=== PATIENT | female | born 1935 | race Caucasian/White ===

== ENCOUNTER 2020-03-14 15:04 | Emergency (ER) | payer MEDICARE, OTHER, SELFPAY ==
--- NOTE | 2020-03-14 15:12 | ED.DENTAL ---
HPI - Dental/Oral General Chief complaint: Dental/Oral Stated complaint: tongue stuck in partial Time Seen by Provider: 03/14/20 15:07 Source: patient and RN notes reviewed Mode of arrival: ambulatory Limitations: no limitations History of Present Illness HPI Narrative: 84-year-old female presents with concern for her tongue being stuck on her partial denture. Reports symptom occurred 10 to 15 minutes prior to arrival while she was eating ice cream cone. Denies bleeding to the area, reports pain. MD Complaint: tooth injury (Tongue pain) Teeth map: 1. Tongue caught on partial denture Related Data Home Medications Medication Instructions Recorded Confirmed aspirin 81 mg tablet,delayed 81 mg PO DAILY 07/10/19 02/02/20 release spironolactone 25 mg tablet 50 mg PO DAILY tablet 07/10/19 02/02/20 Allergies Allergy/AdvReac Type Severity Reaction Status Date / Time Iodinated Contrast Media Allergy Severe Hives Verified 01/26/20 14:12 iodine Allergy Mild Hives Verified 01/26/20 14:12 Review of Systems Review of Systems: Narrative: CONSTITUTIONAL: Denies malaise, chills, sweats, or fever. ENT: Reports painful tongue, caught on her partial denture RESPIRATORY: Denies dyspnea. All systems reviewed & are unremarkable except as noted in HPI and below PMFSH Social History Social History Smoking status: Never smoker Second hand tobacco smoke exposure: No Alcohol intake: never Substance use: never Comments At time of signature, agree with nursing past medical, surgical, social and family history. There is no relevant family history pertinent to the presenting complaint Exam Narrative: Exam Narrative: GENERAL: Well-appearing, well-nourished, and in no acute distress. HEAD: Normocephalic EYES: PERRLA, conjunctivae clear ENT: Nares clear. Mucous membranes moist. Oropharynx without edema, erythema or lesions. Frenulum of tongue punctured, caught onto patient's left sided partial denture, no bleeding noted, small blood blister noted NECK: Supple. CHEST: No respiratory distress. Speaks in full sentences. HEART: Regular rate and rhythm. SKIN: Warm, dry, no rash. NEURO: Alert and oriented x3. PSYCH: Normal mood and affect Course Course Emergency Course: Patient is aware of diagnosis, understands and agrees to treatment plan. Anticipatory guidance given. Patient agrees to follow-up as directed and is aware of reasons to seek care at the emergency department. Portions of this record may have been created with voice recognition software Vital Signs Vital signs: Vital Signs Temperature 98.7 F 03/14/20 15:17 Pulse Rate 89 03/14/20 15:17 Respiratory Rate 16 03/14/20 15:17 Blood Pressure 106/83 03/14/20 15:17 Pulse Oximetry 99 03/14/20 15:17 Temperature 98.7 F 03/14/20 15:17 Pulse Rate 89 03/14/20 15:17 Respiratory Rate 16 03/14/20 15:17 Blood Pressure 106/83 03/14/20 15:17 Pulse Oximetry 99 03/14/20 15:17 Reviewed. Procedures Other Procedure Procedure 1: Other Procedure: 0.3 mL lidocaine without epi injected locally to the left-sided frenulum. Forceps used to unhook the tongue from the metal denture. No complications, no bleeding. MDM - Dental/Oral MDM Narrative Medical decision making narrative: Exam findings show no acute concerns or changes; patient is non-toxic appearing and is in no distress. Patient is appropriate for outpatient treatment and follow-up. Critical Care Time Critical Care Time Critical Care Time: No Discharge Plan Discharge Clinical Impression: Tongue injury Qualifiers: Encounter type: initial encounter Qualified Code(s): S09.93XA - Unspecified injury of face, initial encounter Patient Disposition: Home, Self-Care Condition: Stable Additional Instructions: Rinse your mouth with warm salt water 3-4 times a day. Call your dentist tomorrow for further evaluation of your
[2020-03-14 15:17] VITALS: BP 106/83; PULSE 89; RESP 16; TEMP 37.1; O2SAT 99
== END 2020-03-14 15:36 | disposition home or self-care (01) ==
PROVIDERS: Emergency Provider Nurse Practitioner; PCP Physician Assistant
DX: S09.8XXA Other specified injuries of head, initial encounter (principal); W23.1XXA Caught, crushed, jammed, or pinched between stationary objects, initial encounter; E11.9 Type 2 diabetes mellitus without complications; E03.9 Hypothyroidism, unspecified; E78.00 Pure hypercholesterolemia, unspecified; Z79.84 Long term (current) use of oral hypoglycemic drugs
CPT/HCPCS: 99212; G0463

== ENCOUNTER 2020-06-30 09:50 | Outpatient (CLI) | payer MEDICARE, OTHER, SELFPAY ==
[2020-06-30 10:45] LABS: Alanine Aminotransferase 25 U/L (4-35); Albumin Level 3.6 g/dL (3.5-5.1); Alkaline Phosphatase 73 U/L (38-126); Anion Gap 9 mmol/L (8-16); Aspartate Amino Transferase 27 U/L (14-36); Blood Urea Nitrogen 36 mg/dL (7-17); Calcium 8.5 mg/dL (8.4-10.2); Carbon Dioxide 30 mmol/L (22-30); Chloride 96 mmol/L (98-107); Estimated Glomerular Filt Rate > 60; Glucose 109 mg/dL (65-105); Potassium 3.2 mmol/L (3.4-5.0); Sodium 135 mmol/L (137-145)
[2020-06-30 10:55] LABS: Hemoglobin A1C 5.7 % (<5.7)
[2020-06-30 11:13] LABS: Thyroid Stimulating Hormone 0.023 uIU/mL (0.465-4.680)
[2020-06-30 11:48] LABS: Free T4 Free Thyroxine 1.74 ng/mL (0.78-2.19)
== END 2020-06-30 09:51 | disposition home or self-care (01) ==
PROVIDERS: PCP Physician Assistant; Referring Provider Internal Medicine Nephrology; Visit Provider Physician Assistant
DX: E11.9 Type 2 diabetes mellitus without complications (principal); E03.9 Hypothyroidism, unspecified
CPT/HCPCS: 36415; 80053; 83036; 84439; 84443

== ENCOUNTER 2020-07-06 14:20 | Outpatient (CLI) | payer MEDICARE, OTHER, SELFPAY ==
[2020-07-06 15:07] LABS: Add Urine Microscopic? YES; Appearance Urine Cloudy (Clear); Bacteria Urine Trace /hpf; Bilirubin Urine 1+ (Negative); Blood Urine 1+ (Negative); Color Urine Amber (Yellow); Glucose Urine UA Negative (Negative); Hyaline Casts Urine 20-29 /lpf; Ketones Urine Trace mg/dL (Negative); Leukocyte Esterase Ur 2+ LEU/UL (NEGATIVE); Mucus Urine Heavy /lpf; Nitrate Urine Negative (Negative); Protein Urine 2+ mg/dL (Negative); Squamous Epithelial Cell Urine Many /hpf (Few)
[2020-07-06 15:13] LABS: Specific Grav Ur 1.033 (1.001-1.035)
== END 2020-07-06 14:21 | disposition home or self-care (01) ==
LOC: ANHLAB 14:22
PROVIDERS: PCP Physician Assistant; Visit Provider Physician Assistant
DX: R30.0 Dysuria (principal); E78.6 Lipoprotein deficiency
CPT/HCPCS: 81001; 87086

== ENCOUNTER 2020-08-02 13:35 | Outpatient (CLI) | payer MEDICARE, OTHER, SELFPAY ==
[2020-08-02 14:54] LABS: Hematocrit 40.3 % (37.0-47.0); Hemoglobin 14.2 g/dL (12.0-15.0); Mean Corpuscular HGB Conc 35.2 g/dl (32-36); Mean Corpuscular Hemoglobin 32.9 pg (26-34); Mean Corpuscular Volume 93.5 fl (80-100); Platelet Count Result 119 k/mm3 (150-375); Red Blood Count 4.31 M/mm3 (4.2-5.4); Red Cell Distribution Width 12.9 % (11.5-14.5); White Blood Count 11.7 K/mm3 (4.5-10.0)
[2020-08-02 15:01] LABS: Add Urine Microscopic? YES; Appearance Urine Cloudy (Clear); Bacteria Urine 4+ /hpf; Bilirubin Urine Negative (Negative); Blood Urine 1+ (Negative); Color Urine Yellow (Yellow); Glucose Urine UA 1+ mg/dL (Negative); Ketones Urine Trace mg/dL (Negative); Leukocyte Esterase Ur Negative LEU/UL (NEGATIVE); Mucus Urine Heavy /lpf; Nitrate Urine Negative (Negative); Protein Urine 3+ mg/dL (Negative); Specific Grav Ur 1.028 (1.001-1.035); Squamous Epithelial Cell Urine Many /hpf (Few); WBC Urine 0-3 /hpf (0-3)
[2020-08-02 15:08] LABS: Albumin Level 3.2 g/dL (3.5-5.1); Anion Gap 4 mmol/L (8-16); Blood Urea Nitrogen 34 mg/dL (7-17); Calcium 7.9 mg/dL (8.4-10.2); Carbon Dioxide 31 mmol/L (22-30); Chloride 100 mmol/L (98-107); Estimated Glomerular Filt Rate > 60; Glucose 133 mg/dL (65-105); Magnesium 1.3 mg/dL (1.6-2.3); Phosphorus 2.5 mg/dL (2.5-4.5); Potassium 3.4 mmol/L (3.4-5.0); Sodium 135 mmol/L (137-145)
[2020-08-02 15:59] LABS: Creatinine Urine 137.6 mg/dL; Total Protein Urine Random 129 mg/dL
[2020-08-02 16:01] LABS: Potassium Urine Random 100.3 meq/L
== END 2020-08-02 13:36 | disposition home or self-care (01) ==
PROVIDERS: PCP Physician Assistant; Referring Provider Internal Medicine; Visit Provider Internal Medicine Nephrology
DX: R53.83 Other fatigue (principal); E87.6 Hypokalemia; N39.0 Urinary tract infection, site not specified
CPT/HCPCS: 36415; 80069; 81001; 81050; 82570; 83735; 84133; 84156; 85027; 87077; 87086; 87088; 87186

== ENCOUNTER 2021-02-10 15:45 | Outpatient (CLI) | payer MEDICARE, OTHER, SELFPAY ==
[2021-02-10 16:06] LABS: Hematocrit 41.2 % (37.0-47.0); Hemoglobin 13.5 g/dL (12.0-15.0); Mean Corpuscular HGB Conc 32.8 g/dl (32-36); Mean Corpuscular Hemoglobin 32.1 pg (26-34); Mean Corpuscular Volume 97.9 fl (80-100); Mean Platelet Volume 8.9 fl (7.4-10.4); Platelet Count Result 241 k/mm3 (150-375); Red Blood Count 4.21 M/mm3 (4.2-5.4); Red Cell Distribution Width 13.4 % (11.5-14.5); White Blood Count 7.9 K/mm3 (4.5-10.0)
[2021-02-10 16:36] LABS: Add Urine Microscopic? YES; Appearance Urine Cloudy (Clear); Bacteria Urine Trace /hpf; Bilirubin Urine Negative (Negative); Blood Urine 1+ (Negative); Color Urine Yellow (Yellow); Glucose Urine UA Negative (Negative); Ketones Urine Negative (Negative); Leukocyte Esterase Ur 3+ LEU/UL (NEGATIVE); Mucus Urine Rare /lpf; Nitrate Urine Negative (Negative); Protein Urine Negative (Negative); Specific Grav Ur 1.016 (1.001-1.035); Squamous Epithelial Cell Urine Few /hpf (Few); WBC Urine 51-75 /hpf (0-3)
[2021-02-10 16:41] LABS: Free T4 Free Thyroxine 1.17 ng/mL (0.78-2.19)
== END 2021-02-10 15:46 | disposition home or self-care (01) ==
LOC: ANHLAB 15:48
PROVIDERS: PCP Physician Assistant; Visit Provider Physician Assistant
DX: N39.0 Urinary tract infection, site not specified (principal); E03.9 Hypothyroidism, unspecified; D69.6 Thrombocytopenia, unspecified
CPT/HCPCS: 36415; 81001; 84439; 84443; 85027; 87077; 87086; 87088; 87186

== ENCOUNTER 2021-03-15 12:38 | Outpatient (CLI) | payer MEDICARE, OTHER, SELFPAY ==
[2021-03-15 14:10] LABS: Add Urine Microscopic? YES; Appearance Urine Clear (Clear); Bilirubin Urine Negative (Negative); Blood Urine 1+ (Negative); Color Urine Yellow (Yellow); Glucose Urine UA Negative (Negative); Ketones Urine Negative (Negative); Leukocyte Esterase Ur 1+ LEU/UL (Negative); Mucus Urine Rare /lpf; Nitrate Urine Negative (Negative); Protein Urine Negative (Negative); RBC Urine 0-2 /hpf (0-2); Specific Grav Ur 1.013 (1.001-1.035); Squamous Epithelial Cell Urine Many /hpf (Few); Urobilinogen Urine Negative mg/dL (<2.0)
== END 2021-03-15 12:39 | disposition home or self-care (01) ==
PROVIDERS: PCP Physician Assistant; Visit Provider Internal Medicine
DX: R30.0 Dysuria (principal)
CPT/HCPCS: 81001

== ENCOUNTER 2021-07-14 11:02 | Outpatient (CLI) | payer MEDICARE, OTHER, SELFPAY ==
[2021-07-14 11:49] LABS: Alanine Aminotransferase 21 U/L (4-35); Albumin Level 4.9 g/dL (3.5-5.1); Alkaline Phosphatase 62 U/L (38-126); Anion Gap 8 mmol/L (8-16); Aspartate Amino Transferase 32 U/L (14-36); Bilirubin,Total 0.9 mg/dL (0.2-1.3); Blood Urea Nitrogen 27 mg/dL (7-17); Calcium 10.2 mg/dL (8.4-10.2); Carbon Dioxide 27 mmol/L (22-30); Chloride 106 mmol/L (98-107); Cholesterol 201 mg/dL (0-200); Estimated Glomerular Filt Rate 59; Glucose 95 mg/dL (65-110); HDL Direct 73 mg/dL; Potassium 4.6 mmol/L (3.4-5.0); Sodium 141 mmol/L (137-145); Triglycerides 113 mg/dL (<150)
[2021-07-14 11:50] LABS: Hemoglobin A1C 5.7 % (<5.7)
[2021-07-14 12:00] LABS: LDL Cholesterol Direct 88 mg/dL
[2021-07-14 12:04] LABS: MALB Creatinine Ratio 23.3 mg/g (0-30)
[2021-07-14 12:53] LABS: Folic Acid > 20.0 ng/mL (2.76->20)
== END 2021-07-14 11:03 | disposition home or self-care (01) ==
LOC: ANHLAB 11:08
PROVIDERS: PCP Physician Assistant; Visit Provider Physician Assistant
DX: E11.9 Type 2 diabetes mellitus without complications (principal); R53.83 Other fatigue
CPT/HCPCS: 36415; 80053; 80061; 82043; 82607; 82746; 83036; 84443

== ENCOUNTER 2021-09-27 14:19 | Outpatient (CLI) | payer MEDICARE, OTHER, SELFPAY ==
[2021-09-27 16:05] LABS: Free T4 Free Thyroxine 1.14 ng/mL (0.78-2.19)
== END 2021-09-27 14:20 | disposition home or self-care (01) ==
PROVIDERS: PCP Physician Assistant; Referring Provider Internal Medicine Cardiovascular Disease
DX: E89.0 Postprocedural hypothyroidism (principal)
CPT/HCPCS: 36415; 84439; 84443

== ENCOUNTER 2021-10-13 14:05 | Outpatient (CLI) | payer MEDICARE, OTHER, SELFPAY ==
[2021-10-13 14:40] LABS: Anion Gap 10 mmol/L (8-16); Blood Urea Nitrogen 24 mg/dL (7-17); Calcium 9.7 mg/dL (8.4-10.2); Carbon Dioxide 25 mmol/L (22-30); Chloride 103 mmol/L (98-107); Estimated Glomerular Filt Rate 53; Glucose 88 mg/dL (65-110); Potassium 4.6 mmol/L (3.4-5.0); Sodium 138 mmol/L (137-145)
== END 2021-10-13 14:06 | disposition home or self-care (01) ==
LOC: ANHLAB 14:07
PROVIDERS: PCP Physician Assistant; Visit Provider Internal Medicine Cardiovascular Disease
DX: I50.32 Chronic diastolic (congestive) heart failure (principal); I42.0 Dilated cardiomyopathy
CPT/HCPCS: 36415; 80048

== ENCOUNTER 2021-11-14 13:58 | Outpatient (CLI) | payer MEDICARE, OTHER, SELFPAY ==
[2021-11-14 14:27] LABS: Appearance Urine Clear (Clear); Bilirubin Urine Negative (Negative); Blood Urine 1+ (Negative); Color Urine Yellow (Yellow); Glucose Urine UA Negative (Negative); Ketones Urine Negative (Negative); Leukocyte Esterase Ur Trace LEU/UL (NEGATIVE); Nitrate Urine Negative (Negative); Protein Urine Negative (Negative); Urobilinogen Urine 0.2 mg/dL (<2.0)
[2021-11-14 14:33] LABS: Bacteria Urine Trace /hpf; Mucus Urine Rare /lpf; Squamous Epithelial Cell Urine Occasional /hpf (Few); WBC Urine 0-3 /hpf (0-3)
[2021-11-14 14:39] LABS: Add Urine Microscopic? YES
[2021-11-14 15:11] LABS: Free T4 Free Thyroxine 1.17 ng/mL (0.78-2.19)
== END 2021-11-14 13:59 | disposition home or self-care (01) ==
PROVIDERS: PCP Physician Assistant; Visit Provider Physician Assistant
DX: E03.9 Hypothyroidism, unspecified (principal); R41.0 Disorientation, unspecified
CPT/HCPCS: 36415; 81001; 84439; 84443; 87086; 87088

== ENCOUNTER 2021-12-29 14:30 | Outpatient (CLI) | payer MEDICARE, OTHER, SELFPAY ==
[2021-12-29 15:17] LABS: Anion Gap 8 mmol/L (8-16); Blood Urea Nitrogen 23 mg/dL (7-17); Calcium 9.1 mg/dL (8.4-10.2); Carbon Dioxide 24 mmol/L (22-30); Chloride 103 mmol/L (98-107); Estimated Glomerular Filt Rate > 60; Glucose 91 mg/dL (65-110); Potassium 4.4 mmol/L (3.4-5.0); Sodium 135 mmol/L (137-145)
== END 2021-12-29 14:31 | disposition home or self-care (01) ==
LOC: ANHLAB 14:37
PROVIDERS: PCP Physician Assistant; Visit Provider Internal Medicine Cardiovascular Disease
DX: I50.32 Chronic diastolic (congestive) heart failure (principal)
CPT/HCPCS: 36415; 80048

== ENCOUNTER 2022-01-24 10:13 | Outpatient (CLI) | payer MEDICARE, OTHER, SELFPAY ==
[2022-01-24 10:45] LABS: Appearance Urine Slightly Cloudy (Clear); Bilirubin Urine 1+ (Negative); Blood Urine 1+ (Negative); Color Urine Yellow (Yellow); Glucose Urine UA Negative (Negative); Ketones Urine Trace mg/dL (Negative); Leukocyte Esterase Ur 1+ LEU/UL (Negative); Nitrate Urine Negative (Negative); Protein Urine 2+ mg/dL (Negative); Specific Grav Ur >= 1.030 (1.001-1.035); pH Urine 6.5 (5.0-9.0)
[2022-01-24 10:57] LABS: Bacteria Urine Trace /hpf; Mucus Urine Moderate /lpf; Squamous Epithelial Cell Urine Many /hpf (Few)
[2022-01-24 10:58] LABS: Add Urine Microscopic? YES
== END 2022-01-24 10:14 | disposition home or self-care (01) ==
PROVIDERS: PCP Physician Assistant; Visit Provider Physician Assistant
DX: R30.0 Dysuria (principal)
CPT/HCPCS: 81001; 87086

== ENCOUNTER 2022-02-03 09:46 | Outpatient (CLI) | payer MEDICARE, OTHER, SELFPAY ==
[2022-02-03 10:22] LABS: Basophils Percent Auto 0.1 % (0.2-1.2); Hematocrit 41.5 % (37.0-47.0); Hemoglobin 13.9 g/dL (12.0-15.0); Immature Granulocyte Percent A 0.7 % (0-0.5); Lymphocytes Absolute Auto 1.89 K/mm3 (0.9-3.2); Lymphocytes Percent Auto 13.5 % (18.3-44.2); Mean Corpuscular HGB Conc 33.5 g/dl (32-36); Mean Corpuscular Hemoglobin 31.5 pg (26-34); Mean Corpuscular Volume 94.1 fl (80-100); Mean Platelet Volume 8.8 fl (7.4-10.4); Monocytes Absolute Auto 0.7 K/mm3 (0.1-0.6); Monocytes Percent Auto 4.7 % (2.6-8.5); Neutrophils Absolute Auto 11.3 K/mm3 (1.3-6.7); Platelet Count Result 162 k/mm3 (150-375); Red Blood Count 4.41 M/mm3 (4.2-5.4); Red Cell Distribution Width 12.6 % (11.5-14.5)
[2022-02-03 10:24] LABS: Appearance Urine Slightly Cloudy (Clear); Bilirubin Urine 1+ (Negative); Color Urine Yellow (Yellow); Glucose Urine UA Negative (Negative); Ketones Urine Negative (Negative); Leukocyte Esterase Ur 1+ LEU/UL (NEGATIVE); Nitrate Urine Negative (Negative); Protein Urine 2+ mg/dL (Negative); Specific Grav Ur 1.025 (1.001-1.035)
[2022-02-03 10:47] LABS: Bacteria Urine Trace /hpf; Mucus Urine Rare /lpf; RBC Urine 21-50 /hpf (0-2); Squamous Epithelial Cell Urine Many /hpf (Few); WBC Urine 31-50 /hpf (0-3)
[2022-02-03 10:53] LABS: Alanine Aminotransferase 21 U/L (6-35); Albumin Level 3.1 g/dL (3.5-5.1); Alkaline Phosphatase 74 U/L (38-126); Anion Gap 6 mmol/L (8-16); Aspartate Amino Transferase 25 U/L (14-36); Bilirubin,Total 1.4 mg/dL (0.2-1.3); Blood Urea Nitrogen 38 mg/dL (7-17); Carbon Dioxide 35 mmol/L (22-30); Chloride 94 mmol/L (98-107); Estimated Glomerular Filt Rate > 60; Glucose 112 mg/dL (65-110); Potassium 2.5 mmol/L (3.4-5.0); Sodium 135 mmol/L (137-145)
[2022-02-03 11:02] LABS: Add Urine Microscopic? YES; Blood Urine Trace-Intact (Negative)
[2022-02-03 11:15] LABS: Thyroid Stimulating Hormone 0.033 uIU/mL (0.465-4.680)
[2022-02-03 11:42] LABS: Calcium 7.8 mg/dL (8.4-10.2)
[2022-02-03 11:51] LABS: Folic Acid 14.4 ng/mL (2.76->20)
== END 2022-02-03 09:47 | disposition home or self-care (01) ==
LOC: ANHLAB 09:49
PROVIDERS: PCP Physician Assistant; Visit Provider Physician Assistant
DX: R53.1 Weakness (principal)
CPT/HCPCS: 36415; 80053; 81001; 82607; 82746; 84443; 85025; 87077; 87086; 87088; 87186

== ENCOUNTER 2022-02-03 14:53 | Inpatient (IN) | payer MEDICARE, OTHER, SELFPAY ==
[2022-02-03] VITALS (13 sets, daily range): BP systolic 103–126; BP diastolic 51–70; PULSE 68–91; RESP 12–19; TEMP 36.5–36.7; O2SAT 95–98; BMI 26.2
--- NOTE | ~2022-02-03 | CT_ITS ---
EXAMINATION: CT abdomen pelvis wo con DATE: 02/03/2022 17:56 INDICATION: Generalized abdominal pain. TECHNIQUE: Computed tomography (CT) of the abdomen and pelvis was performed without intravenous contr ast. Automated exposure control and iterative reconstruction technique were employed. The dose-length product was 457.90 mGy-cm. COMPARISON: Chest radiograph dated 10/19/2016 FINDINGS: Stable appearance of extensive pleural and parenchymal scarring scattered throughout the bilateral mi d and lower lung zones. Tiny left pleural effusion. Cardiomegaly with prominent right atrial enlargem ent. Mitral valve repair. No pericardial or pleural effusion. Small sliding-type hiatal hernia. Liver , gallbladder, spleen and pancreas are normal. There is relatively symmetric thickening of the bilate ral adrenal glands without discrete nodules which could be seen with adrenal hyperplasia. 1 cm low-at tenuation exiting cyst at the lower pole of the right kidney. 5 mm relatively high attenuation lesion at the lower pole of the left kidney most likely a proteinaceous/hemorrhagic cyst but too small to d efinitively characterize. There is mild colonic diverticulosis with a sigmoid predominance. There is no adjacent inflammatory change to suggest diverticulitis. No bowel obstruction. The appendix is not visualized. No pericecal inflammatory change to suggest acute appendicitis. Decompressed bladder is unremarkable. Atrophic versus more likely surgically absent uterus. No free intraperitoneal gas or fl uid. No pathologically enlarged abdominal or pelvic lymphadenopathy. Mild thoracolumbar levoscoliosis with severe spondylosis. Chronic T12 and L1 burst fractures with mild retropulsion resulting in mild central canal stenosis at both levels. Small bilateral fat-containing inguinal hernias. IMPRESSION: 1. No acute intra-abdominal/pelvic process. 2. Cardiomegaly with prominent right atrial enlargement. 3. Stable appearance of extensive pleural-parenchymal scarring in the bilateral mid and lower lung zo rachelle. 4. Tiny left pleural effusion. 5. Small sliding-type hiatal hernia. 6. Mild diverticulosis. Reviewed, dictated and finalized at location A. IMPRESSION: 1. No acute intra-abdominal/pelvic process. 2. Cardiomegaly with prominent right atrial enlargement. 3. Stable appearance of extensive pleural-parenchymal scarring in the bilateral mid and lower lung zones. 4. Tiny left pleural effusion. 5. Small sliding-type hiatal hernia. 6. Mild diverticulosis.
--- NOTE | 2022-02-03 15:11 | ECG_ITS ---
Measurements Intervals [place] Rate: 89 P: ND: 0 QRS: 16 QRSD: 94 T: -9 QT: 377 QTc: 461 Interpretive Statements SINUS A RHYTHM NONSPECIFIC ST & T-WAVE ABNORMALITY NO PREVIOUS ECG AVAILABLE FOR COMPARISON Electronically Signed On 02-03-2022 16:37:25 CDT by Ray Woodruff M.D.
[2022-02-03 17:28] LABS: INR 1.1; Magnesium 1.8 mg/dL (1.6-2.3); Partial Thromboplastin Time 20.7 SECONDS (22.3-36.8); Prothrombin Time 13.8 Seconds (11.1-14.7)
--- NOTE | 2022-02-03 17:28 | ED.RECABL ---
HPI - Recheck/Abnormal Lab/Rx General Chief Complaint: Recheck/Abnormal Lab/Rx Stated Complaint: elevated wbc, low k+, from PCP Time Seen by Provider: 02/03/22 16:42 Source: RN notes reviewed History of Present Illness HPI narrative: Patient presents emergency room from home for weakness. Patient states she has been feeling generally weak for the past 4 days. States has had no other symptoms with the weakness she denies any fevers or chills chest pain shortness of breath abdominal pain nausea vomit diarrhea or any other symptoms. She gone to her PCP today was noted she had a urinary tract infection as well as a low potassium and was sent to the emergency department for further evaluation Related Data Home Medications Medication Instructions Recorded Confirmed aspirin 81 mg tablet,delayed 81 mg PO DAILY 07/10/19 02/03/22 release (Adult Low Dose Aspirin) Allergies Allergy/AdvReac Type Severity Reaction Status Date / Time Iodinated Contrast Media Allergy Severe Hives Verified 02/03/22 15:10 iodine Allergy Mild Hives Verified 02/03/22 15:10 Review of Systems Review of Systems: Gen.: Denies fevers or chills ENT: Denies congestion Respiratory: Denies shortness of breath or cough CV: Denies chest pain or palpitations GI: Denies abdominal pain nausea, emesis or diarrhea Musculoskeletal: Denies back pain or muscle pain Neuro: D reports weakness Skin: Denies rash Except as documented, all other systems reviewed and negative [facility] Past Medical History Medical History High blood cholesterol High blood pressure History of stroke History of thyroid cancer Surgical History Surgical History H/O mitral valve replacement H/O total hysterectomy with removal of both tubes and ovaries History of bladder surgery Bladder mesh surgery History of thyroidectomy Family History Family History Sibling Family history of coronary artery disease Family history of malignant neoplasm of thyroid Daughter Asthma Social History Social History Smoking status: Never smoker Second hand tobacco smoke exposure: No Alcohol intake: never Substance use: never Exam Narrative: APPEARANCE: No acute distress, nontoxic, resting in bed EYES: EOMI HEENT: Normocephalic, atraumatic, OMM RESPIRATORY: No respiratory distress Clear to auscultation bilaterally with no rhonchi wheezing or rales. CARDIOVASCULAR: Regular rate and rhythm without murmurs rubs or gallops. ABDOMINAL: Soft, nontender, nondistended, no rebound or guarding MUSCULOSKELETAl: Moves all extremities. No clubbing, cyanosis or edema. NEURO: Awake and alert. Following commands, speech normal, no focal deficits SKIN:: Warm, dry. No rashes lesions or abrasions PSYCHIATRIC: Normal affect/mood, Course Course Emergency Course: Reviewed patient's lab work from prior today showing elevated white blood cell count Discussed with CURTIS Baer for Dr. Pruett agrees with admission request 40 mill equivalents of potassium given both orally as well as IV Discussed with patient and family results of workup and diagnosis. Discussed need for admission. Patient and family understand and agree to current treatment plan Vital Signs Vital signs: Vital Signs Temperature 97.7 F 02/03/22 15:06 Pulse Rate 91 02/03/22 15:06 Respiratory Rate 14 02/03/22 15:06 Blood Pressure 108/51 L 02/03/22 15:06 Pulse Oximetry 97 02/03/22 15:06 Oxygen Delivery Room Air 02/03/22 15:06 Temperature 97.7 F 02/03/22 15:06 Pulse Rate 86 02/03/22 18:18 Respiratory Rate 19 02/03/22 18:18 Blood Pressure 121/70 02/03/22 18:18 Pulse Oximetry 98 02/03/22 18:18 Oxygen Delivery Room Air 02/03/22 15:06 MDM - Recheck/Abnormal Lab/Rx Lab Data Result diagram
[2022-02-03 17:32] LABS: Alanine Aminotransferase 26 U/L (6-35); Albumin Level 3.3 g/dL (3.5-5.1); Alkaline Phosphatase 81 U/L (38-126); Anion Gap 11 mmol/L (8-16); Aspartate Amino Transferase 30 U/L (14-36); Bilirubin,Total 1.1 mg/dL (0.2-1.3); Blood Urea Nitrogen 41 mg/dL (7-17); Calcium 8.1 mg/dL (8.4-10.2); Carbon Dioxide 33 mmol/L (22-30); Chloride 93 mmol/L (98-107); Estimated CRCL calculation 41 ml/min; Estimated Glomerular Filt Rate > 60; Glucose 163 mg/dL (65-110); Potassium 2.6 mmol/L (3.4-5.0); Sodium 137 mmol/L (137-145)
[2022-02-03 17:33] LABS: Lactic Acid Reflex 4.3 mmol/L (0.7-2.0)
[2022-02-03] MEDS: SODIUM CHLORIDE 0.9% IV 1,000 ML 999 ML IV CONT (17:41)
[2022-02-03 18:14] LABS: SARS-CoV-2 RNA PCR Negative
[2022-02-03] MEDS: POTASSIUM CHLORIDE 20 MEQ TABLET 40 MEQ PO (18:20)
[2022-02-03] MEDS: SODIUM CHLORIDE 0.9% IV 500 ML 999 ML IV CONT (19:14)
[2022-02-03] MEDS: POTASSIUM CHLORIDE INJ 40 MEQ in SODIUM CHLORIDE 0.9% IV 500 ML 130 MEQ IVPB (19:59)
[2022-02-03] MEDS: SODIUM CHLORIDE 0.9% IV 1,000 ML 100 ML IV CONT (20:05)
[2022-02-03 20:13] LABS: Reflex Lactic Acid Yes or No Add Lactic
[2022-02-03 21:04] LABS: Lactic Acid 3.7 mmol/L (0.7-2.0)
--- NOTE | 2022-02-03 21:51 | ADMGEN ---
This patient, Shannon Stahl, was admitted to 2 Medical Room 259-. Patient/family oriented to hospital policies and general routines including ID bracelet, bed and alarms, visiting hours, pain management, procedures, bathroom and other care routines, personal items, smoking policy, room service/diet, and visiting hours. Information on how to activate the Rapid Response Team has been discussed. Patient/Family are encouraged to report perceived risks to care and to ask questions if they do not understand what they are told or what they should do.
--- NOTE | 2022-02-03 23:18 | PM.IMHP ---
H&P: HPI History of Present Illness Date/Time: 02/03/22 23:18 Chief Complaint: Lab abnormalities Narrative: Greater than 30 minutes spent reviewing chart, evaluating, treating, counseling patient. Anticipate less than 48 hour admission, will admit under observation. 86-year-old female past medical history of TIA in early , history of thyroid cancer status post thyroidectomy, heart failure reduced ejection fraction (09/2021 TTE LVEF 45%, grade 1 DD), status post bioprosthetic mitral valve repair 07/2015 in [place], history of GI bleed with ulcer 08/2015, type 2 diabetes non-insulin. Presents from home with lab abnormalities. Patient reports she has not had any symptoms, however had lab work done with PCP who advised her to come to the hospital for further evaluation. Patient denies fever/chills, cough, sore throat, shortness of breath, chest pain, palpitations, nausea/vomiting, diarrhea/constipation, dysuria/hematuria. In ED, vitals stable. Labs remarkable for white count of 14, patient afebrile. Potassium 2.5. Glucose 163. Lactic acid initial 4.3. CT abdomen/pelvis done that was negative for acute intra-abdominal/pelvic process. UA showing 1+ leukocyte esterase, many wbc's, however many squamous cells present. Patient given a dose of Rocephin, total of 80 mEq potassium, 2 L normal saline. Review of Systems Review of Systems: Ten point ROS reviewed, negative unless otherwise specified per HPI [facility] Past Medical History Medical History High blood cholesterol High blood pressure History of stroke History of thyroid cancer Surgical History Surgical History H/O mitral valve replacement H/O total hysterectomy with removal of both tubes and ovaries History of bladder surgery Bladder mesh surgery History of thyroidectomy Family History Family History Sibling Family history of coronary artery disease Family history of malignant neoplasm of thyroid Daughter Asthma Social History Social History Smoking status: Never smoker Second hand tobacco smoke exposure: No Alcohol intake: never Substance use: never Spiritual care concerns: No Meds Home Medications and Allergies Home Medications Medication Instructions Recorded Confirmed Type aspirin 81 mg tablet,delayed 81 mg PO DAILY 07/10/19 02/03/22 History release (Adult Low Dose Aspirin) levothyroxine 50 mcg tablet 50 mcg PO DAILY #90 tabs 08/10/20 02/03/22 Rx blood sugar diagnostic (Contour See Rx Instructions .Route 08/23/20 02/03/22 Rx Next Test Strips) .COMPLEX #100 ea blood-glucose meter (Contour Next #1 ea 08/23/20 02/03/22 Rx EZ Meter) lancets 33 gauge (BD Ultra Fine #100 ea 08/23/20 02/03/22 Rx Lancets) metformin 500 mg tablet See Rx Instructions .Route 03/31/21 02/03/22 Rx .COMPLEX #90 tabs losartan 25 mg tablet 25 mg PO DAILY #90 tabs 08/29/21 02/03/22 Rx spironolactone 25 mg tablet 50 mg PO DAILY #180 tabs 09/14/21 02/03/22 Rx atorvastatin 10 mg tablet 10 mg PO DAILY #90 tabs 10/26/21 02/03/22 Rx Allergies Allergy/AdvReac Type Severity Reaction Status Date / Time Iodinated Contrast Media Allergy Severe Hives Verified 02/03/22 23:03 iodine Allergy Mild Hives Verified 02/03/22 23:03 Vital Signs Vital Signs - 24 hr 02/03/22 15:06 02/03/22 18:18 02/03/22 18:19 Temperature 97.7 F Pulse Rate 91 86 72 Respiratory Rate 14 19 15 Blood Pressure 108/51 L 121/70 Pulse Oximetry 97 98 98 Oxygen Delivery Room Air 02/03/22 18:30 02/03/22 18:31 02/03/22 18:45 Temperature Pulse Rate 72 85 80 Respiratory Rate 18 18 15 Blood Pressure 126/61 Pulse Oximetry Oxygen Delivery 02/03/22 19:16 02/03/22 19:49 02/03/22 20:03 Temperature Pulse Rate 82 80 87 Respiratory Rate 14 16 12 B
[2022-02-04] VITALS (10 sets, daily range): BP systolic 119–144; BP diastolic 57–96; PULSE 58–88; RESP 15–20; TEMP 36.4–36.9; O2SAT 92–98
[2022-02-04 01:22] LABS: Lactic Acid Reflex 4.5 mmol/L (0.7-2.0)
[2022-02-04 06:36] LABS: Basophils Percent Auto 0.1 % (0.2-1.2); Hematocrit 38.6 % (37.0-47.0); Hemoglobin 12.7 g/dL (12.0-15.0); Immature Granulocyte Absolute 0.11 K/mm3 (0.00-0.031); Immature Granulocyte Percent A 0.9 % (0-0.5); Lymphocytes Absolute Auto 1.36 K/mm3 (0.9-3.2); Lymphocytes Percent Auto 11.1 % (18.3-44.2); Mean Corpuscular HGB Conc 32.9 g/dl (32-36); Mean Corpuscular Hemoglobin 31.5 pg (26-34); Mean Corpuscular Volume 95.8 fl (80-100); Mean Platelet Volume 9.7 fl (7.4-10.4); Monocytes Absolute Auto 0.6 K/mm3 (0.1-0.6); Monocytes Percent Auto 5.1 % (2.6-8.5); Neutrophils Absolute Auto 10.2 K/mm3 (1.3-6.7); Neutrophils Percent Auto 82.8 % (45.5-73.1); Platelet Count Result 149 k/mm3 (150-375); Red Blood Count 4.03 M/mm3 (4.2-5.4); Red Cell Distribution Width 12.6 % (11.5-14.5); White Blood Count 12.3 K/mm3 (4.5-10.0)
[2022-02-04] MEDS: LEVOTHYROXINE SODIUM 50 MCG TABLET PO (06:55)
[2022-02-04 06:59] LABS: Hemoglobin A1C 5.8 % (<5.7); Lactic Acid Reflex 3.2 mmol/L (0.7-2.0)
[2022-02-04 07:10] LABS: Alanine Aminotransferase 19 U/L (6-35); Albumin Level 2.7 g/dL (3.5-5.1); Alkaline Phosphatase 89 U/L (38-126); Anion Gap 6 mmol/L (8-16); Aspartate Amino Transferase 22 U/L (14-36); Bilirubin,Total 0.8 mg/dL (0.2-1.3); Blood Urea Nitrogen 37 mg/dL (7-17); Calcium 7.2 mg/dL (8.4-10.2); Carbon Dioxide 32 mmol/L (22-30); Chloride 104 mmol/L (98-107); Estimated CRCL calculation 49 ml/min; Estimated Glomerular Filt Rate > 60; Glucose 182 mg/dL (65-110); Potassium 2.9 mmol/L (3.4-5.0); Sodium 142 mmol/L (137-145)
[2022-02-04 07:21] LABS: Thyroid Stimulating Hormone 0.024 uIU/mL (0.465-4.680)
[2022-02-04 07:52] LABS: Glucose Point of Care 154 mg/dl (65-105)
[2022-02-04 09:22] LABS: Reflex Lactic Acid Yes or No Add Lactic
[2022-02-04] MEDS: ASPIRIN 81 MG ENTERIC TABLET PO (09:51)
[2022-02-04] MEDS: LOSARTAN POTASSIUM 25 MG TABLET PO (09:51)
[2022-02-04] MEDS: ATORVASTATIN 10 MG TABLET PO (09:51)
[2022-02-04] MEDS: ENOXAPARIN 40 MG/0.4 ML SYRINGE SUB-Q (09:51)
[2022-02-04] MEDS: SPIRONOLACTONE 25 MG TABLET 50 MG PO (09:52)
[2022-02-04 11:05] LABS: Lactic Acid 3.1 mmol/L (0.7-2.0)
[2022-02-04] MEDS: POTASSIUM CHLORIDE 20 MEQ TABLET 40 MEQ PO ×3 (11:05→17:32)
--- NOTE | 2022-02-04 11:33 | PM.IMPN ---
Progress Note: A&P Assessment and Plan (1) Acute hypokalemia: Code(s): E87.6 - Hypokalemia Status: Acute Assessment and Plan: Patient currently being given a total of 80 mEq potassium. Will recheck potassium at 1:00 a.m.. Given spironolactone use will be cautious with further replacement 02/04/2022 interval history: 86-year-old female with history of hypokalemia and was placed on spironolactone however patient continued to have hypokalemia being supplemented and will monitor, complains of being tired and fatigued, denies any chest pain shortness of breath palpitation, patient lactic acid level is elevated there is no source of infection, lactic acid is trending down, patient on metformin being hold, will gently hydrate the patient and monitor. (2) Lactic acid acidosis: Code(s): E87.2 - Acidosis Status: Acute Assessment and Plan: Unclear etiology at this time. Infectious workup ongoing as below, however patient does not exhibit any symptoms and is afebrile. Metformin may also be causing this lactic acidosis, however patient is not in renal failure. Continue to monitor (3) Leukocytosis: Code(s): D72.829 - Elevated white blood cell count, unspecified Status: Acute Assessment and Plan: Unclear etiology at this time. UA unclean catch, will recheck. Hold off on further antibiotics at this time. Blood cultures also pending. (4) Heart failure with reduced ejection fraction: Code(s): I50.20 - Unspecified systolic (congestive) heart failure Status: Acute Assessment and Plan: Patient given a total of 2 L normal saline, will hold off on further fluids given patient may be slightly volume overloaded. Continue spironolactone and losartan. Continue aspirin/statin (5) Hypothyroidism: Qualifiers: Hypothyroidism type: unspecified Qualified Code(s): E03.9 - Hypothyroidism, unspecified Code(s): E03.9 - Hypothyroidism, unspecified Status: Acute Assessment and Plan: Check TSH. Continue Synthroid (6) Diabetes mellitus: Code(s): E11.9 - Type 2 diabetes mellitus without complications Status: Acute Assessment and Plan: Hold metformin. Low-dose sliding scale insulin. Check A1c Subjective Date/time seen: 02/04/22 11:33 Lab abnormalities HPI-Narrative: Greater than 30 minutes spent reviewing chart, evaluating, treating, counseling patient.? Anticipate less than 48 hour admission, will admit under observation. 86-year-old female past medical history of TIA in early , history of thyroid cancer status post thyroidectomy, heart failure reduced ejection fraction (09/2021 TTE LVEF 45%, grade 1 DD), status post bioprosthetic mitral valve repair 07/2015 in [place], history of GI bleed with ulcer 08/2015, type 2 diabetes non-insulin.? Presents from home with lab abnormalities.? Patient reports she has not had any symptoms, however had lab work done with PCP who advised her to come to the hospital for further evaluation.? Patient denies fever/chills, cough, sore throat, shortness of breath, chest pain, palpitations, nausea/vomiting, diarrhea/constipation, dysuria/hematuria. In ED, vitals stable.? Labs remarkable for white count of 14, patient afebrile.? Potassium 2.5.? Glucose 163.? Lactic acid initial 4.3.? CT abdomen/pelvis done that was negative for acute intra-abdominal/pelvic process.? UA showing 1+ leukocyte esterase, many wbc's, however many squamous cells present.? Patient given a dose of Rocephin, total of 80 mEq potassium, 2 L normal saline. 02/04/2022 interval history: 86-year-old female with history of hypokalemia and was placed on spironolactone however patient continued to have hypokalemia being supplemented and will monitor, complains of being tired and fatigued, denies any chest pain shortness of breath palpitation, patient lactic acid level is elevated there is no source of infection, lactic acid is trending down, patient
[2022-02-04 11:54] LABS: Glucose Point of Care 187 mg/dl (65-105)
[2022-02-04 13:18] LABS: Appearance Urine Clear (Clear); Bilirubin Urine 1+ (Negative); Blood Urine Trace-lysed (Negative); Color Urine Yellow (Yellow); Glucose Urine UA Trace mg/dL (Negative); Ketones Urine Negative (Negative); Leukocyte Esterase Ur Trace LEU/UL (Negative); Nitrate Urine Negative (Negative); Protein Urine 2+ mg/dL (Negative); Urobilinogen Urine >=8.0 mg/dL (<2.0)
[2022-02-04 13:30] LABS: Mucus Urine Rare /lpf; Squamous Epithelial Cell Urine Many /hpf (Few)
[2022-02-04 13:41] LABS: Add Urine Microscopic? YES
[2022-02-04 15:50] LABS: Anion Gap 6 mmol/L (8-16); Blood Urea Nitrogen 39 mg/dL (7-17); Calcium 7.6 mg/dL (8.4-10.2); Carbon Dioxide 29 mmol/L (22-30); Chloride 102 mmol/L (98-107); Estimated CRCL calculation 43 ml/min; Estimated Glomerular Filt Rate > 60; Glucose 214 mg/dL (65-110); Magnesium 1.7 mg/dL (1.6-2.3); Potassium 3.2 mmol/L (3.4-5.0); Sodium 137 mmol/L (137-145)
[2022-02-04] MEDS: MAGNESIUM OXIDE 400 MG TABLET PO (17:33)
[2022-02-04 17:39] LABS: Glucose Point of Care 201 mg/dl (65-105)
[2022-02-04] MEDS: INSULIN ASPART (*BKC) 100 UNITS/ML SUB-Q (18:31)
[2022-02-04 21:55] LABS: Glucose Point of Care 201 mg/dl (65-105)
[2022-02-05] VITALS (11 sets, daily range): BP systolic 111–146; BP diastolic 59–81; PULSE 61–90; RESP 12–20; TEMP 36.2–37.1; O2SAT 94–97
[2022-02-05] MEDS: LEVOTHYROXINE SODIUM 50 MCG TABLET PO (05:20)
[2022-02-05 06:30] LABS: Basophils Percent Auto 0.2 % (0.2-1.2); Hematocrit 39.7 % (37.0-47.0); Hemoglobin 12.8 g/dL (12.0-15.0); Immature Granulocyte Absolute 0.12 K/mm3 (0.00-0.031); Immature Granulocyte Percent A 0.9 % (0-0.5); Lymphocytes Absolute Auto 1.59 K/mm3 (0.9-3.2); Lymphocytes Percent Auto 12.4 % (18.3-44.2); Mean Corpuscular HGB Conc 32.2 g/dl (32-36); Mean Corpuscular Hemoglobin 31.4 pg (26-34); Mean Corpuscular Volume 97.5 fl (80-100); Mean Platelet Volume 9.4 fl (7.4-10.4); Monocytes Absolute Auto 0.6 K/mm3 (0.1-0.6); Monocytes Percent Auto 4.5 % (2.6-8.5); Neutrophils Absolute Auto 10.5 K/mm3 (1.3-6.7); Platelet Count Result 125 k/mm3 (150-375); Red Blood Count 4.07 M/mm3 (4.2-5.4); Red Cell Distribution Width 12.9 % (11.5-14.5); White Blood Count 12.8 K/mm3 (4.5-10.0)
[2022-02-05 06:53] LABS: Alanine Aminotransferase 20 U/L (6-35); Albumin Level 2.8 g/dL (3.5-5.1); Alkaline Phosphatase 78 U/L (38-126); Anion Gap 1 mmol/L (8-16); Aspartate Amino Transferase 21 U/L (14-36); Bilirubin,Total 0.9 mg/dL (0.2-1.3); Blood Urea Nitrogen 35 mg/dL (7-17); Calcium 7.2 mg/dL (8.4-10.2); Carbon Dioxide 33 mmol/L (22-30); Chloride 106 mmol/L (98-107); Estimated CRCL calculation 49 ml/min; Estimated Glomerular Filt Rate > 60; Glucose 128 mg/dL (65-110); Potassium 3.8 mmol/L (3.4-5.0); Sodium 140 mmol/L (137-145)
[2022-02-05 07:54] LABS: Glucose Point of Care 108 mg/dl (65-105)
[2022-02-05] MEDS: MAGNESIUM OXIDE 400 MG TABLET PO (09:13)
[2022-02-05] MEDS: ATORVASTATIN 10 MG TABLET PO (09:13)
[2022-02-05] MEDS: SPIRONOLACTONE 25 MG TABLET 50 MG PO (09:13)
[2022-02-05] MEDS: ASPIRIN 81 MG ENTERIC TABLET PO (09:13)
[2022-02-05] MEDS: LOSARTAN POTASSIUM 25 MG TABLET PO (09:13)
[2022-02-05] MEDS: ENOXAPARIN 40 MG/0.4 ML SYRINGE SUB-Q (09:14)
[2022-02-05 11:51] LABS: Glucose Point of Care 165 mg/dl (65-105)
--- NOTE | 2022-02-05 14:34 | PM.IMPN ---
Progress Note: A&P Assessment and Plan (1) Acute hypokalemia: Code(s): E87.6 - Hypokalemia Status: Acute Assessment and Plan: Patient currently being given a total of 80 mEq potassium. Will recheck potassium at 1:00 a.m.. Given spironolactone use will be cautious with further replacement 02/04/2022 interval history: 86-year-old female with history of hypokalemia and was placed on spironolactone however patient continued to have hypokalemia being supplemented and will monitor, complains of being tired and fatigued, denies any chest pain shortness of breath palpitation, patient lactic acid level is elevated there is no source of infection, lactic acid is trending down, patient on metformin being hold, will gently hydrate the patient and monitor. 02/05/2022 interval history: 86-year-old female with history of hypokalemia and was placed on spironolactone however patient continued to have hypokalemia being supplemented and will monitor, complains of being tired and fatigued, denies any chest pain shortness of breath palpitation, patient lactic acid level was elevated there is no source of infection, blood culture so far no growth and urine culture is pending, lactic acid is trending down, patient on metformin being hold, will gently hydrate the patient and monitor. if patient remains clinically stable, will discharge patient tomorrow, (2) Lactic acid acidosis: Code(s): E87.2 - Acidosis Status: Acute Assessment and Plan: Unclear etiology at this time. Infectious workup ongoing as below, however patient does not exhibit any symptoms and is afebrile. Metformin may also be causing this lactic acidosis, however patient is not in renal failure. Continue to monitor (3) Leukocytosis: Code(s): D72.829 - Elevated white blood cell count, unspecified Status: Acute Assessment and Plan: Unclear etiology at this time. UA unclean catch, will recheck. Hold off on further antibiotics at this time. Blood cultures also pending. (4) Heart failure with reduced ejection fraction: Code(s): I50.20 - Unspecified systolic (congestive) heart failure Status: Acute Assessment and Plan: Patient given a total of 2 L normal saline, will hold off on further fluids given patient may be slightly volume overloaded. Continue spironolactone and losartan. Continue aspirin/statin (5) Hypothyroidism: Qualifiers: Hypothyroidism type: unspecified Qualified Code(s): E03.9 - Hypothyroidism, unspecified Code(s): E03.9 - Hypothyroidism, unspecified Status: Acute Assessment and Plan: Check TSH. Continue Synthroid (6) Diabetes mellitus: Code(s): E11.9 - Type 2 diabetes mellitus without complications Status: Acute Assessment and Plan: Hold metformin. Low-dose sliding scale insulin. Check A1c Subjective Date/time seen: 02/05/22 14:34 02/05/2022 interval history: 86-year-old female with history of hypokalemia and was placed on spironolactone however patient continued to have hypokalemia being supplemented and will monitor, complains of being tired and fatigued, denies any chest pain shortness of breath palpitation, patient lactic acid level was elevated there is no source of infection, blood culture so far no growth and urine culture is pending, lactic acid is trending down, patient on metformin being hold, will gently hydrate the patient and monitor. if patient remains clinically stable, will discharge patient tomorrow, Exam Narrative: elderly frail Patient is comfortable, NAD HEENT: eyes are clear and none icteric LUNGS: normal respiratory effort ABD: not distended Lower extremities: no edema SKIN: nonjaundiced Neuro: grossly intact. Objective Data Vital Signs Vital Signs: Vital Signs - 24 hr 02/04/22 18:21 02/04/22 19:44 02/04/22 16:00 Temperature 97.5 F L 98.3 F Pulse Rate 84 80 71 Respiratory Rate 18 16 Blood Pressure 129/
[2022-02-05 17:28] LABS: Glucose Point of Care 175 mg/dl (65-105)
[2022-02-05 20:32] LABS: Glucose Point of Care 213 mg/dl (65-105)
[2022-02-06] VITALS (8 sets, daily range): BP systolic 111–151; BP diastolic 66–86; PULSE 65–92; RESP 16–20; TEMP 36.4–37.4; O2SAT 94–97
[2022-02-06 05:45] LABS: Basophils Percent Auto 0.2 % (0.2-1.2); Hematocrit 38.1 % (37.0-47.0); Hemoglobin 12.7 g/dL (12.0-15.0); Immature Granulocyte Percent A 1.6 % (0-0.5); Lymphocytes Absolute Auto 1.73 K/mm3 (0.9-3.2); Lymphocytes Percent Auto 14.3 % (18.3-44.2); Mean Corpuscular HGB Conc 33.3 g/dl (32-36); Mean Corpuscular Hemoglobin 31.5 pg (26-34); Mean Corpuscular Volume 94.5 fl (80-100); Mean Platelet Volume 9.3 fl (7.4-10.4); Monocytes Absolute Auto 0.5 K/mm3 (0.1-0.6); Monocytes Percent Auto 4.5 % (2.6-8.5); Neutrophils Absolute Auto 9.6 K/mm3 (1.3-6.7); Neutrophils Percent Auto 79.4 % (45.5-73.1); Platelet Count Result 117 k/mm3 (150-375); Red Blood Count 4.03 M/mm3 (4.2-5.4); Red Cell Distribution Width 12.7 % (11.5-14.5); White Blood Count 12.1 K/mm3 (4.5-10.0)
[2022-02-06] MEDS: LEVOTHYROXINE SODIUM 50 MCG TABLET PO (05:48)
[2022-02-06 07:45] LABS: Glucose Point of Care 110 mg/dl (65-105)
[2022-02-06] MEDS: ENOXAPARIN 40 MG/0.4 ML SYRINGE SUB-Q (08:11)
[2022-02-06] MEDS: SPIRONOLACTONE 25 MG TABLET 50 MG PO (08:12)
[2022-02-06] MEDS: MAGNESIUM OXIDE 400 MG TABLET PO (08:12)
[2022-02-06] MEDS: ATORVASTATIN 10 MG TABLET PO (08:12)
[2022-02-06] MEDS: ASPIRIN 81 MG ENTERIC TABLET PO (08:12)
[2022-02-06] MEDS: LOSARTAN POTASSIUM 25 MG TABLET PO (08:12)
[2022-02-06 09:18] LABS: Alanine Aminotransferase 24 U/L (6-35); Albumin Level 2.7 g/dL (3.5-5.1); Alkaline Phosphatase 77 U/L (38-126); Anion Gap 3 mmol/L (8-16); Aspartate Amino Transferase 23 U/L (14-36); Bilirubin,Total 0.7 mg/dL (0.2-1.3); Blood Urea Nitrogen 28 mg/dL (7-17); Calcium 7.4 mg/dL (8.4-10.2); Carbon Dioxide 31 mmol/L (22-30); Chloride 100 mmol/L (98-107); Estimated CRCL calculation 49 ml/min; Estimated Glomerular Filt Rate > 60; Glucose 128 mg/dL (65-110); Sodium 134 mmol/L (137-145)
[2022-02-06] MEDS: POTASSIUM CHLORIDE 20 MEQ TABLET 40 MEQ PO (10:47)
[2022-02-06 12:21] LABS: Glucose Point of Care 123 mg/dl (65-105)
--- NOTE | 2022-02-06 13:45 | PM.DS ---
DS: Admitting Diagnosis Discharge Date 02/06/2022 Admitting Diagnosis hypokalemia DS: Discharge Diagnosis Discharge Diagnosis (1) Acute hypokalemia: Code(s): E87.6 - Hypokalemia Status: Acute Assessment and Plan: Patient currently being given a total of 80 mEq potassium. Will recheck potassium at 1:00 a.m.. Given spironolactone use will be cautious with further replacement 02/04/2022 interval history: 86-year-old female with history of hypokalemia and was placed on spironolactone however patient continued to have hypokalemia being supplemented and will monitor, complains of being tired and fatigued, denies any chest pain shortness of breath palpitation, patient lactic acid level is elevated there is no source of infection, lactic acid is trending down, patient on metformin being hold, will gently hydrate the patient and monitor. 02/05/2022 interval history: 86-year-old female with history of hypokalemia and was placed on spironolactone however patient continued to have hypokalemia being supplemented and will monitor, complains of being tired and fatigued, denies any chest pain shortness of breath palpitation, patient lactic acid level was elevated there is no source of infection, blood culture so far no growth and urine culture is pending, lactic acid is trending down, patient on metformin being hold, will gently hydrate the patient and monitor. if patient remains clinically stable, will discharge patient tomorrow, (2) Lactic acid acidosis: Code(s): E87.2 - Acidosis Status: Acute Assessment and Plan: Unclear etiology at this time. Infectious workup ongoing as below, however patient does not exhibit any symptoms and is afebrile. Metformin may also be causing this lactic acidosis, however patient is not in renal failure. Continue to monitor (3) Leukocytosis: Code(s): D72.829 - Elevated white blood cell count, unspecified Status: Acute Assessment and Plan: Unclear etiology at this time. UA unclean catch, will recheck. Hold off on further antibiotics at this time. Blood cultures also pending. (4) Heart failure with reduced ejection fraction: Code(s): I50.20 - Unspecified systolic (congestive) heart failure Status: Acute Assessment and Plan: Patient given a total of 2 L normal saline, will hold off on further fluids given patient may be slightly volume overloaded. Continue spironolactone and losartan. Continue aspirin/statin (5) Hypothyroidism: Qualifiers: Hypothyroidism type: unspecified Qualified Code(s): E03.9 - Hypothyroidism, unspecified Code(s): E03.9 - Hypothyroidism, unspecified Status: Acute Assessment and Plan: Check TSH. Continue Synthroid (6) Diabetes mellitus: Code(s): E11.9 - Type 2 diabetes mellitus without complications Status: Acute Assessment and Plan: Hold metformin. Low-dose sliding scale insulin. Check A1c DS: Summary Hospital Course Reason for hospitalization: Greater than 30 minutes spent reviewing chart, evaluating, treating, counseling patient.? Anticipate less than 48 hour admission, will admit under observation. 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 Presents from home with lab abnormalities.? Patient reports she has not had any symptoms, however had lab work done with PCP who advised her to come to the hospital for further evaluation.? Patient denies fever/chills, cough, sore throat, shortness of breath, chest pain, palpitations, nausea/vomiting, diarrhea/constipation, dysuria/hematuria. In ED, vitals stable.? Labs remarkable for white count of 14, patient afebrile.? Potassium 2.5.? Glucose 163
== END 2022-02-06 15:15 | disposition home or self-care (01) | DRG 640 ==
LOC: ANHED 18:43 → ANH2MED 20:44
PROVIDERS: Internal Medicine; Admitting Provider Family Medicine; Emergency Provider Emergency Medicine; PCP Physician Assistant; Visit Provider Family Medicine
DX: E87.6 Hypokalemia (principal); I50.23 Acute on chronic systolic (congestive) heart failure; Z20.822 Contact with and (suspected) exposure to COVID-19; E87.2 Acidosis; D72.829 Elevated white blood cell count, unspecified; E03.9 Hypothyroidism, unspecified; E11.9 Type 2 diabetes mellitus without complications; Z85.850 Personal history of malignant neoplasm of thyroid; Z86.73 Personal history of transient ischemic attack (TIA), and cerebral infarction without residual deficits; Z79.84 Long term (current) use of oral hypoglycemic drugs; Z95.2 Presence of prosthetic heart valve; Z90.710 Acquired absence of both cervix and uterus; Z79.82 Long term (current) use of aspirin
CPT/HCPCS: 36415; 74176; 80048; 80053; 81001; 82607; 82746; 82948; 83036; 83605; 83735; 84443; 85025; 85610; 85730; 87040; 87086; 87186; 93005; 96365; 96372; 96375; 97110; 97116; 97161; 97165; 97530; 99285; A9270; C9803; G0378; J0696; J1650; J1815; J3480; J7030; J7040; U0003; U0005

== ENCOUNTER 2022-02-09 08:11 | Outpatient (CLI) | payer MEDICARE, OTHER, SELFPAY ==
[2022-02-09 08:53] LABS: Anion Gap 6 mmol/L (8-16); Blood Urea Nitrogen 34 mg/dL (7-17); Calcium 7.6 mg/dL (8.4-10.2); Carbon Dioxide 31 mmol/L (22-30); Chloride 96 mmol/L (98-107); Estimated Glomerular Filt Rate > 60; Glucose 139 mg/dL (65-110); Magnesium 1.8 mg/dL (1.6-2.3); Potassium 2.7 mmol/L (3.4-5.0); Sodium 133 mmol/L (137-145)
--- NOTE | 2022-02-09 10:33 | PC.NURSE ---
Faxed outpatient labs to PCP- Gasper Williamson. Lab called to our office this AM.
== END 2022-02-09 08:12 | disposition home or self-care (01) ==
LOC: ANHLAB 08:14
PROVIDERS: PCP Physician Assistant; Visit Provider Family Medicine
DX: E87.6 Hypokalemia (principal)
CPT/HCPCS: 36415; 80048; 83735

== ENCOUNTER 2022-02-13 14:16 | Outpatient (CLI) | payer MEDICARE, OTHER, SELFPAY ==
[2022-02-13 14:48] LABS: Anion Gap 10 mmol/L (8-16); Blood Urea Nitrogen 28 mg/dL (7-17); Calcium 7.7 mg/dL (8.4-10.2); Carbon Dioxide 30 mmol/L (22-30); Chloride 97 mmol/L (98-107); Estimated Glomerular Filt Rate > 60; Glucose 156 mg/dL (65-110); Sodium 137 mmol/L (137-145)
== END 2022-02-13 14:17 | disposition home or self-care (01) ==
LOC: ANHLAB 14:19
PROVIDERS: PCP Physician Assistant; Visit Provider Internal Medicine
DX: E87.6 Hypokalemia (principal)
CPT/HCPCS: 36415; 80048

== ENCOUNTER 2022-02-17 10:32 | Outpatient (CLI) | payer MEDICARE, OTHER, SELFPAY ==
[2022-02-17 12:56] LABS: Appearance Urine Slightly Cloudy (Clear); Bilirubin Urine 1+ (Negative); Blood Urine 1+ (Negative); Color Urine Yellow (Yellow); Glucose Urine UA Negative (Negative); Ketones Urine Trace mg/dL (Negative); Leukocyte Esterase Ur 1+ LEU/UL (Negative); Nitrate Urine Negative (Negative); Protein Urine 3+ mg/dL (Negative)
[2022-02-17 13:02] LABS: Mucus Urine Few /lpf; Squamous Epithelial Cell Urine Many /hpf (Few)
[2022-02-17 13:07] LABS: Add Urine Microscopic? YES
== END 2022-02-17 10:33 | disposition home or self-care (01) ==
LOC: ANHLAB 10:33
PROVIDERS: PCP Physician Assistant; Visit Provider Internal Medicine
DX: R30.0 Dysuria (principal)
CPT/HCPCS: 81001

== ENCOUNTER 2022-02-20 08:03 | Outpatient (CLI) | payer MEDICARE, OTHER, SELFPAY ==
[2022-02-20 09:01] LABS: Basophils Percent Auto 0.3 % (0.2-1.2); Eosinophils Percent Auto 0.1 % (0-4.4); Immature Granulocyte Absolute 0.21 K/mm3 (0.00-0.031); Immature Granulocyte Percent A 2.2 % (0-0.5); Lymphocytes Absolute Auto 1.76 K/mm3 (0.9-3.2); Mean Corpuscular HGB Conc 34.1 g/dl (32-36); Mean Corpuscular Hemoglobin 32.2 pg (26-34); Mean Corpuscular Volume 94.3 fl (80-100); Mean Platelet Volume 9.3 fl (7.4-10.4); Monocytes Absolute Auto 0.6 K/mm3 (0.1-0.6); Monocytes Percent Auto 5.9 % (2.6-8.5); Neutrophils Absolute Auto 7.2 K/mm3 (1.3-6.7); Neutrophils Percent Auto 73.5 % (45.5-73.1); Platelet Count Result 131 k/mm3 (150-375); Red Blood Count 4.35 M/mm3 (4.2-5.4); Red Cell Distribution Width 13.6 % (11.5-14.5); White Blood Count 9.8 K/mm3 (4.5-10.0)
[2022-02-20 09:28] LABS: Anion Gap 6 mmol/L (8-16); Blood Urea Nitrogen 35 mg/dL (7-17); Calcium 7.9 mg/dL (8.4-10.2); Carbon Dioxide 35 mmol/L (22-30); Chloride 96 mmol/L (98-107); Estimated Glomerular Filt Rate > 60; Glucose 158 mg/dL (65-110); Potassium 2.7 mmol/L (3.4-5.0); Sodium 137 mmol/L (137-145)
[2022-02-20 09:43] LABS: Free T4 Free Thyroxine 1.45 ng/mL (0.78-2.19)
[2022-02-20 12:41] LABS: Folic Acid 13.7 ng/mL (2.76->20)
== END 2022-02-20 08:04 | disposition home or self-care (01) ==
LOC: ANHLAB 08:06
PROVIDERS: PCP Physician Assistant; Visit Provider Internal Medicine
DX: D72.829 Elevated white blood cell count, unspecified (principal); E03.9 Hypothyroidism, unspecified; R53.1 Weakness; R53.83 Other fatigue; E87.6 Hypokalemia
CPT/HCPCS: 36415; 80048; 82607; 82746; 84439; 84443; 85025

== ENCOUNTER 2022-02-27 14:02 | Outpatient (CLI) | payer MEDICARE, OTHER, SELFPAY ==
[2022-02-27 14:41] LABS: Anion Gap 12 mmol/L (8-16); Blood Urea Nitrogen 36 mg/dL (7-17); Calcium 8.3 mg/dL (8.4-10.2); Carbon Dioxide 25 mmol/L (22-30); Chloride 100 mmol/L (98-107); Estimated Glomerular Filt Rate > 60; Glucose 177 mg/dL (65-110); Potassium 4.1 mmol/L (3.4-5.0); Sodium 137 mmol/L (137-145)
[2022-03-01 15:50] LABS: Thyroid Stimulating Hormone 0.035 uIU/mL (0.465-4.680)
[2022-03-01 18:54] LABS: Free T4 Free Thyroxine 0.83 ng/dL (0.76-1.46)
== END 2022-02-27 14:03 | disposition home or self-care (01) ==
PROVIDERS: PCP Physician Assistant; Visit Provider Physician Assistant
DX: E87.6 Hypokalemia (principal); E89.0 Postprocedural hypothyroidism
CPT/HCPCS: 36415; 80048; 84439; 84443

== ENCOUNTER 2022-03-07 14:55 | Outpatient (CLI) | payer MEDICARE, OTHER, SELFPAY ==
[2022-03-07 15:55] LABS: Appearance Urine Clear (Clear); Bilirubin Urine 1+ (Negative); Blood Urine Trace-lysed (Negative); Color Urine Yellow (Yellow); Glucose Urine UA Trace mg/dL (Negative); Ketones Urine Trace mg/dL (Negative); Leukocyte Esterase Ur Negative LEU/UL (NEGATIVE); Nitrate Urine Negative (Negative); Protein Urine 2+ mg/dL (Negative); Specific Grav Ur 1.025 (1.001-1.035); Urobilinogen Urine >=8.0 mg/dL (<2.0)
[2022-03-07 16:10] LABS: Add Urine Microscopic? YES
[2022-03-07 16:12] LABS: Squamous Epithelial Cell Urine Moderate /hpf (Few); WBC Urine 0-3 /hpf (0-3)
[2022-03-07 16:13] LABS: Bacteria Urine 1+ /hpf
[2022-03-07 17:12] LABS: Anion Gap 16 mmol/L (8-16); Blood Urea Nitrogen 36 mg/dL (7-17); Calcium 7.4 mg/dL (8.4-10.2); Carbon Dioxide 20 mmol/L (22-30); Chloride 101 mmol/L (98-107); Estimated Glomerular Filt Rate > 60; Glucose 199 mg/dL (65-110); Potassium 4.3 mmol/L (3.4-5.0); Sodium 137 mmol/L (137-145)
[2022-03-10 17:17] LABS: NIL 0.17 IU/mL; Quantiferon TB Plus, 1T NEGATIVE (NEGATIVE); TB2-NIL <0.00 IU/mL
== END 2022-03-07 14:56 | disposition home or self-care (01) ==
PROVIDERS: PCP Physician Assistant; Visit Provider Physician Assistant
DX: R41.0 Disorientation, unspecified (principal)
CPT/HCPCS: 36415; 80048; 81001; 86480; 87086; 87088

== ENCOUNTER 2022-03-20 13:54 | Inpatient (IN) | payer MEDICARE, OTHER, SELFPAY ==
[2022-03-20] VITALS (19 sets, daily range): BP systolic 110–132; BP diastolic 58–91; PULSE 80–114; RESP 16–23; TEMP 36.3–36.6; O2SAT 94–99; BMI 25.7
--- NOTE | ~2022-03-20 | CT_ITS ---
EXAMINATION: CT abdomen pelvis wo con DATE: 03/20/2022 16:14 INDICATION: Abdominal pain. Shortness of breath. TECHNIQUE: Computed tomography (CT) of the abdomen and pelvis was performed without intravenous contr ast. (Patient contrast medium allergy). Automated exposure control and iterative reconstruction techn ique were employed. Exam dose: 558.64 mGy-cm total exam DLP. COMPARISON: 02/03/2022 CT abdomen pelvis FINDINGS: There are small pleural effusions. There is patchy infiltrate and/or atelectasis in the low er lung zones. Cardiomegaly, right atrial enlargement,. Prominent mitral annulus calcification. No pericardial effus ion. Ascending aorta measures up to 3.9 cm diameter. There is calcification but normal caliber of the abdo jeannie aorta. There is prominent calcification at the origins of the renal arteries. Liver, gallbladder, bile ducts, spleen, pancreas, pancreatic duct, and adrenal glands and kidneys are unremarkable except for probable small cyst of each kidney. No urinary tract calculus or hydroureter onephrosis. The urinary bladder is unremarkable. Status post hysterectomy. No intraperitoneal or retroperitoneal or pelvic mass lesion or adenopathy or ascites is detected. Small sliding hiatal hernia. Mild colonic diverticulosis; no CT evidence of diverticulitis. No bowel obstruction, bowel wall thickening, pneumatosis or intraperitoneal free air. Small fat-containing umbilical hernia. Mild fat-containing inguinal hernias. Severe bilateral hip osteoarthritis. Osteitis pubis. Likely chronic burst fracture deformities of T12 and L1. Prominent degenerative change at the apophys eal joints. Moderately severe degenerative disc disease at L1-2 and L3-4. Severe degenerative disc disease at L5- S1. IMPRESSION: Small bilateral pleural effusions patchy infiltrate and/or atelectasis in the lower lung zones Cardiomegaly Small sliding hiatal hernia Colonic diverticulosis Chronic burst fractures of T12 and L1 Extensive degenerative changes of the spine and hips Reviewed, dictated and finalized at [facility]. Reviewed, dictated and finalized at location B. IMPRESSION: Small bilateral pleural effusions patchy infiltrate and/or atelect asis in the lower lung zones Cardiomegaly Small sliding hiatal hernia Colonic diverticulosis Chronic burst fractures of T12 and L1 Extensive degenerative changes of the spine and hips
--- NOTE | ~2022-03-20 | XR_ITS ---
XR chest 2V 03/20/2022 14:25 Indication: Dyspnea Procedure: 2 view chest Comparison: Comparison to multiple prior studies sequentially, with oldest reviewed study dated 04/01. Findings: Cardiomegaly. Bibasilar airspace disease. Persistent pulmonary nodule right mid thorax. The re is atherosclerosis of the aorta. No acute osseous abnormality. Advanced osteoarthritis of the shou lders. There is a prosthetic heart valve. Impression: 1: Bibasilar airspace disease, suspicious for pneumonia. 2: Stable nodular density right mid thorax without significant change from 04/12/2018. Consider follo w-up CT chest in 3 months or pet/CT scan. Reviewed, dictated and finalized at location A. Impression: 1: Bibasilar airspace disease, suspicious for pneumonia. 2: Stable nodular density right mid thorax without significant change from 04/01. Consider follow-up CT chest in 3 months or pet/CT scan.
--- NOTE | ~2022-03-20 | NM_ITS ---
EXAMINATION: NM pulmonary perfusion DATE: 03/21/2022 13:15 INDICATION: Shortness of breath. TECHNIQUE: 5.07 mCi Tc-99m MAA was administered intravenously for perfusion images. Scintigraphic im ages of the chest were obtained. COMPARISON: Chest 2 views 03/20/2022, CT abdomen and pelvis 03/20/2022 FINDINGS: Perfusion images show matched large defects in left lower lobe and matched small defects in left lowe r lobe. There is a moderate-sized defect in left upper lobe. IMPRESSION: 1. Nondiagnostic (intermediate probability for pulmonary embolism). Reviewed, dictated and finalized at location A.
--- NOTE | ~2022-03-20 | US_ITS ---
US venous doppler [facility] DATE: 03/26/2022 14:59 INDICATION: The venous thrombosis of left peroneal veins TECHNIQUE: Real-time and color flow imaging and Doppler analysis of the veins of both lower extremiti es COMPARISON: None FINDINGS: With the exception of the left peroneal veins, there is spontaneous and phasic flow and nor mal augmentation and color flow signal and normal compression of the veins of the lower extremities. There is persistent thrombus and lack of flow or compression of the left peroneal veins. IMPRESSION: Persistent left peroneal vein thrombosis, as noted on 03/21/2022 Reviewed, dictated and finalized at [facility]. Reviewed, dictated and finalized at location A.
--- NOTE | ~2022-03-20 | US_ITS ---
EXAMINATION: US venous doppler [facility] DATE: 03/21/2022 13:40 INDICATION: Lower limb edema. TECHNIQUE: Grayscale ultrasound images without and with compression and Doppler ultrasound images of the bilateral lower extremity veins were obtained. COMPARISON: None. FINDINGS: The visualized portions of right common femoral vein, profunda (deep) femoral vein, femoral vein, pop liteal vein, peroneal veins, posterior tibial veins, and greater saphenous vein outflow are patent. The visualized portions of left common femoral vein, profunda femoral vein, femoral vein, popliteal v ein, posterior tibial veins, and greater saphenous vein outflow are patent. There is thrombus in the left peroneal veins. IMPRESSION: 1. Deep vein thrombosis involving the left peroneal veins. I called this result to Dr. Pruett. Reviewed, dictated and finalized at location A. IMPRESSION: 1. Deep vein thrombosis involving the left peroneal veins. I called this resul t to Dr. Pruett.
--- NOTE | ~2022-03-20 | CT_ITS ---
EXAMINATION: CTA chest PE protocol DATE: 03/28/2022 10:54 INDICATION: Shortness of breath TECHNIQUE: Computed tomography angiography (CTA) of the chest was performed with 100 mL Omnipaque-350 intravenous contrast timed to evaluate the pulmonary arteries. Coronal maximum intensity projection 3D-reconstructions were created by the technologist. The dose-length product (DLP) was 171.04 mGy-cm. Automated exposure control and iterative reconstruction technique were employed. COMPARISON: 10/27/2016 FINDINGS: The pulmonary arteries are well-opacified. No pulmonary embolism is identified. There are s mall pleural effusions. Cardiomegaly is noted. There is mild dependent atelectasis. There is a 12 mm groundglass nodule in the right upper lobe, likely infectious or inflammatory. There is no pneumothor ax. There are no pathologically enlarged thoracic lymph nodes. Changes of mitral valve replacement ar e noted. There is severe thoracic spondylosis. IMPRESSION: 1. No pulmonary embolus. 2. Small pleural effusions. 3. Cardiomegaly. Reviewed, dictated and finalized at location A.
--- NOTE | ~2022-03-20 | XR_ITS ---
XR abdomen/kub 1V 03/25/2022 06:03 Indication: Abdominal bruising. Procedure: KUB Comparison: 03/28/2004 Findings: Bowel gas pattern nonobstructive. Moderate colonic fecal loading. There are bibasilar infil trates partially seen. Severe thoracolumbar spondylosis. No abnormal calcifications. Moderate-severe bilateral osteoarthritis of the hips. Impression: 1: Nonobstructive bowel gas pattern with moderate colonic fecal loading. 2: Bibasilar airspace disease which may represent pneumonia or edema. Reviewed, dictated and finalized at location A. Impression: 1: Nonobstructive bowel gas pattern with moderate colonic fecal loading. 2: Bibasilar airspace disease which may represent pneumonia or edema.
--- NOTE | ~2022-03-20 | NM_ITS ---
EXAMINATION: NM benjamín stress w perfusion DATE: 03/22/2022 13:06 CDT INDICATION: Elevated troponin. CHF. TECHNIQUE: Rest images were obtained following intravenous administration of 9.6 mCi Tc99m tetrofosmi n (Myoview). The patient was infused intravenously with Lexiscan (regadenoson). Then, 28.7 mCi Tc99m tetrofosmin (Myoview) was administered intravenously, and stress images were obtained. Data was recon structed into short axis and horizontal and vertical long axis SPECT images. Gated SPECT images were also obtained. COMPARISON: None. FINDINGS: There is no definite reversible or fixed perfusion abnormality to suggest ischemia or infar ction. There is no segmental wall motion abnormality. Left ventricular ejection fraction measures 3 9%. IMPRESSION: 1. No definite ischemia or infarct. 2. Global hypokinesis with diminished left ventricular ejection fraction measuring 39%. Reviewed, dictated and finalized at location A. IMPRESSION: 1. No definite ischemia or infarct. 2. Global hypokinesis with diminished left ventricular ejection fraction measur ing 39%.
--- NOTE | ~2022-03-20 | CT_ITS ---
EXAMINATION: CT abdomen pelvis wo con DATE: 03/25/2022 20:17 INDICATION: Anemia. Abdominal wall bruising. TECHNIQUE: Computed tomography (CT) of the abdomen and pelvis was performed without intravenous contr ast. Automated exposure control and iterative reconstruction technique were employed. The dose-length product was 385.95 mGy-cm. COMPARISON: CT abdomen and pelvis 03/20/2022 FINDINGS: The visualized portions of the lung bases demonstrate mild atelectasis and mild chronic kristine g disease. There are small pleural effusions. Cardiomegaly is noted. There are changes of mitral valv e replacement. No pericardial effusion. The liver, gallbladder, spleen, pancreas, adrenal glands, and kidneys are normal. There is no urolithiasis. The bladder is decompressed by a Meza catheter. There are bilateral inguinal hernias containing fat. Stool distends the rectum. There is diverticulosis of the colon without evidence of diverticulitis. There are no dilated loops of bowel. The appendix is n ormal. There are no pathologically enlarged lymph nodes. There is no free intraperitoneal fluid. Ther e is subcutaneous fat stranding in anterior abdominal wall predominantly on the left. There is severe osteoarthritis of the hips. There are chronic burst fractures of T12 on L1. There is severe lower josiah mbar spondylosis. IMPRESSION: 1. Subcutaneous fat stranding in anterior abdominal wall predominantly on the left, consistent with h ematoma. 2. Small pleural effusions with interval improvement. Reviewed, dictated and finalized at location E. IMPRESSION: 1. Subcutaneous fat stranding in anterior abdominal wall predominantly on the l eft, consistent with hematoma. 2. Small pleural effusions with interval improvement.
--- NOTE | 2022-03-20 13:57 | ECG_ITS ---
Measurements Intervals [place] Rate: 115 P: 55 IL: 155 QRS: 3 QRSD: 86 T: 24 QT: 329 QTc: 456 Interpretive Statements SINUS TACHYCARDIA FREQUENT ATRIAL PREMATURE COMPLEXES BORDERLINE T WAVE ABNORMALITY- ANT/INF LEADS ABNORMAL ECG COMPARED TO ECG 02/03/2022 15:27:45 SINUS TACHYCARDIA NOW PRESENT FREQUENT ATRIAL PREMATURE COMPLEXES NOW PRESENT Electronically Signed On 03-20-2022 14:05:30 CDT by Marcos Pineda D.O.
--- NOTE | 2022-03-20 14:09 | ED.GENADULT ---
HPI - General Adult General Chief complaint: Shortness of Breath/Dyspnea Stated complaint: dyspnea Time Seen by Provider: 03/20/22 14:08 Source: RN notes reviewed History of Present Illness HPI narrative: Patient presents emergency department from home via EMS for shortness of breath. Patient was visit on by home health nurse today the patient's been noted to have been increasing weakness over the past several days as well as shortness of breath. She states that she has not had a cough she denies any fevers or chills chest pain abdominal pain nausea or vomiting. Per the daughter the patient had had a mildly low blood pressure at home but is unsure of what that actual reading was patient states she has had some mild swelling in her legs Related Data Home Medications Medication Instructions Recorded Confirmed aspirin 81 mg tablet,delayed 81 mg PO DAILY 07/10/19 02/25/22 release (Adult Low Dose Aspirin) Allergies Allergy/AdvReac Type Severity Reaction Status Date / Time Iodinated Contrast Media Allergy Severe Hives Verified 02/24/22 11:18 iodine Allergy Mild Hives Verified 02/24/22 11:18 Review of Systems Review of Systems: Gen.: Denies fevers or chills ENT: Denies congestion Respiratory: See HPI CV: Denies chest pain or palpitations GI: Denies abdominal pain nausea, emesis or diarrhea Musculoskeletal: Denies back pain or muscle pain Neuro: Reports weakness Skin: Denies rash Except as documented, all other systems reviewed and negative [facility] Past Medical History Medical History High blood cholesterol High blood pressure History of stroke History of thyroid cancer Surgical History Surgical History H/O mitral valve replacement H/O total hysterectomy with removal of both tubes and ovaries History of bladder surgery Bladder mesh surgery History of thyroidectomy Family History Family History Sibling Family history of coronary artery disease Family history of malignant neoplasm of thyroid Daughter Asthma Social History Social History Smoking status: Never smoker Second hand tobacco smoke exposure: No Alcohol intake: never Substance use: never Spiritual care concerns: No Exam Narrative: APPEARANCE: No acute distress, nontoxic, resting in bed EYES: EOMI HEENT: Normocephalic, atraumatic, OMM RESPIRATORY: No respiratory distress coarse breath sounds of bilateral lung bases no wheezing. CARDIOVASCULAR: Regular rate and rhythm without murmurs rubs or gallops. ABDOMINAL: Soft, nontender, nondistended, no rebound or guarding Rectal: No hemorrhoids or fissures small amount of soft brown stool that is Hemoccult negative MUSCULOSKELETAl: Moves all extremities. No clubbing, cyanosis 2+ edema of the bilateral lower extremities NEURO: Awake and alert. Following commands, speech normal, no focal deficits SKIN:: Warm, dry. No rashes lesions or abrasions PSYCHIATRIC: Normal affect/mood, Course Course Emergency Course: Patient states she follows with Dr. Asencio I called discussed with Dr. Armendariz she agrees with consult agrees with IV Lasix at this time and will follow as inpatient Discussed with CURTIS Bear for Dr Abdi agrees with admission Discussed with patient and family results of workup and diagnosis. Discussed need for admission. Patient and family understand and agree to current treatment plan Vital Signs Vital signs: Vital Signs Temperature 97.3 F L 03/20/22 13:57 Pulse Rate 114 H 03/20/22 13:57 Respiratory Rate 20 03/20/22 13:57 Blood Pressure 126/91 H 03/20/22 13:57 Pulse Oximetry 98 03/20/22 13:57 Oxygen Delivery Room Air 03/20/22 13:57 Temperature 97.3 F L 03/20/22 13:57 Pulse Rate 105 H 03/20/22 16:36 Respiratory Rate 16 03/20/22 1
[2022-03-20 15:38] LABS: Hematocrit 32.3 % (37.0-47.0); Hemoglobin 10.7 g/dL (12.0-15.0); Mean Corpuscular HGB Conc 33.1 g/dl (32-36); Mean Corpuscular Hemoglobin 34.3 pg (26-34); Mean Corpuscular Volume 103.5 fl (80-100); Mean Platelet Volume 9.6 fl (7.4-10.4); Platelet Count Result 113 k/mm3 (150-375); Red Blood Count 3.12 M/mm3 (4.2-5.4); Red Cell Distribution Width 20.7 % (11.5-14.5); White Blood Count 9.2 K/mm3 (4.5-10.0)
[2022-03-20 15:53] LABS: Alanine Aminotransferase 214 U/L (6-35); Albumin Level 3.2 g/dL (3.5-5.1); Alkaline Phosphatase 154 U/L (38-126); Anion Gap 6 mmol/L (8-16); Aspartate Amino Transferase 93 U/L (14-36); Bilirubin,Total 1.1 mg/dL (0.2-1.3); Blood Urea Nitrogen 39 mg/dL (7-17); Calcium 8.1 mg/dL (8.4-10.2); Carbon Dioxide 22 mmol/L (22-30); Chloride 111 mmol/L (98-107); Estimated CRCL calculation 43 ml/min; Estimated Glomerular Filt Rate > 60; Glucose 155 mg/dL (65-110); Lactic Acid Reflex 2.5 mmol/L (0.7-2.0); Potassium 4.7 mmol/L (3.4-5.0); Sodium 139 mmol/L (137-145)
[2022-03-20 16:04] LABS: INR 1.2
[2022-03-20 16:06] LABS: Partial Thromboplastin Time 23.9 SECONDS (22.3-36.8)
[2022-03-20 16:10] LABS: Band Neutrophils Percent 5 % (0-6); Lymphocytes Absolute Manual 2.11 K/mm3 (1.1-4.5); Lymphocytes Percent Manual 23 % (18-44); Metamyelocytes Percent 1 %; Monocytes Absolute Manual 0.27 K/mm3 (0.1-0.90); Monocytes Percent Manual 3 % (3-9); Neutrophils Absolute Manual 6.71 K/mm3 (1.7-7.2); Neutrophils Percent Manual 68 % (46-73); Nucleated Red Blood Cells 5 %; Platelet Estimate Decreased (Adequate); Total Cells Counted 100
[2022-03-20 16:11] LABS: Macrocytosis 1+ (NORMAL); Poikilocytosis 1+ (NORMAL)
[2022-03-20 16:12] LABS: Burr Cells 2+ (NORMAL)
[2022-03-20] MEDS: SODIUM CHLORIDE 0.9% IV 1,000 ML 999 ML IV CONT (16:17)
[2022-03-20 16:18] LABS: NT Pro B Type Natriuretic Pept 17800 pg/mL (5-100)
[2022-03-20 17:17] LABS: SARS-CoV-2 RNA PCR Negative
[2022-03-20] MEDS: ASPIRIN 81 MG CHEWABLE TABLET 324 MG PO (17:21)
[2022-03-20] MEDS: FUROSEMIDE INJ 40 MG/4 ML VIAL IV PUSH (17:21)
[2022-03-20 18:36] LABS: Reflex Lactic Acid Yes or No Add Lactic
--- NOTE | 2022-03-20 19:18 | PC.NURSE ---
Assumed care of pt at this time. Pt alert and upright on stretcher per baseline, updated on POC.
[2022-03-20 19:19] LABS: Lactic Acid 3.1 mmol/L (0.7-2.0)
--- NOTE | 2022-03-20 20:00 | PM.IMHP ---
H&P: HPI History of Present Illness Date/Time: 03/20/22 20:00 Chief Complaint: Shortness of breath. Narrative: This is an 86-year-old female with history of heart failure with reduced ejection fraction (09/2021 TTE LVEF 45%, grade 1 diastolic dysfunction), valvular heart disease status post bioprosthetic mitral valve repair in July 2015, hypertension, dyslipidemia, thyroid cancer status post thyroidectomy with postsurgical hypothyroidism, [id number] type 2 diabetes mellitus and history of GI bleed secondary to ulcers in August 2015 who presented to the emergency department via EMS from home for evaluation of shortness of breath. She was admitted to the hospital in early January with lab abnormalities including hyperkalemia and lactic acidosis of unclear etiology. She was hydrated and discharged home with home health and physical therapy. She has had difficulties participating in physical therapy as she has been increasingly fatigued and gets exhausted with minimal activity. She has also had increasing dyspnea on lesser and lesser exertion in addition to increasing lower extremity edema. She has not had chest pain, pleuritic pain, or palpitations. She has not had a cough, sinus congestion, or sore throat. She denies syncope and near syncope. Review of Systems Review of Systems: Twelve systems were reviewed. No fever, chills, or sweats. No cold or flu symptoms. No sick contacts. Appetite has been fair. No vomiting. [facility] Past Medical History Medical History Dyslipidemia GI bleed (08/2015) Heart failure with reduced ejection fraction EF was 45% on echo in September 2021. Grade 1 diastolic dysfunction. Hypertension Peptic ulcer Thyroid cancer Surgical History Surgical History History of bladder suspension procedure History of mitral valve replacement with bioprosthetic valve History of thyroidectomy History of total abdominal hysterectomy and bilateral salpingo-oophorectomy Family History Family History Sibling Family history of coronary artery disease Family history of malignant neoplasm of thyroid Daughter Asthma Social History Social History Social History: Lives w/ ; daughters providing assistance. Surrogate medical decision maker: Arpita Singh, daughter. Code status: Full code. Smoking status: Never smoker Second hand tobacco smoke exposure: Yes Alcohol intake: never Substance use: never Spiritual care concerns: No Meds Home Medications and Allergies Home Medications Medication Instructions Recorded Confirmed Type aspirin 81 mg tablet,delayed 81 mg PO DAILY 07/10/19 03/20/22 History release (Adult Low Dose Aspirin) losartan 25 mg tablet 25 mg PO DAILY #90 tabs 08/29/21 03/20/22 Rx atorvastatin 10 mg tablet 10 mg PO DAILY #90 tabs 10/26/21 03/20/22 Rx collagenase clostridium histo. 250 1 applic topical QHS #90 grams 02/27/22 03/20/22 Rx unit/gram topical ointment (Santyl) potassium chloride 20 mEq 20 meq PO TID #270 tabs 03/15/22 03/20/22 Rx tablet,extended release citalopram 10 mg tablet 10 mg PO DAILY #90 tabs 03/16/22 03/20/22 Rx cholecalciferol (vitamin D3) 25 25 mcg PO DAILY 03/20/22 03/20/22 History mcg (1,000 unit) chewable tablet (Vitamin D3) levothyroxine 50 mcg tablet 25 mcg PO EVERY OTHER DAY 03/20/22 03/20/22 History metformin 500 mg tablet 500 mg PO DAILY 03/20/22 03/20/22 History spironolactone 25 mg tablet 25 mg PO DAILY 03/20/22 03/20/22 History Allergies Allergy/AdvReac Type Severity Reaction Status Date / Time Iodinated Contrast Media Allergy Severe Hives Verified 02/24/22 11:18 iodine Allergy Mild Hives Verified 02/24/22 11:18 Vital Signs Vital Signs - 24 hr 03/20/22 13:57 03/20/22 14:
[2022-03-20 20:20] LABS: Creatine Kinase 40 U/L (30-135); Lactate Dehydrogenase 805 U/L (120-246)
[2022-03-20 20:21] LABS: D Dimer 3.71 ug/mL (<0.48)
[2022-03-20 20:52] LABS: Iron 148 ug/dL (37-170); Percent Iron Saturation 64 % (20-50)
[2022-03-20 20:55] LABS: Hepatitis B Surface Antigen Negative (Negative)
[2022-03-20 20:56] LABS: Troponin I 0.233 ng/mL (0.000-0.034)
[2022-03-20 21:01] LABS: HAV RESULT Negative (Negative); Hepatitis B Core IgM Result Negative (Negative)
[2022-03-20 21:12] LABS: Hepatitis C Virus Antibody Negative (Negative)
[2022-03-20 21:47] LABS: Folic Acid 8.3 ng/mL (2.76->20)
[2022-03-20] MEDS: ENOXAPARIN 80 MG/0.8 ML SYRINGE 70 MG SUB-Q (21:55)
[2022-03-20 23:34] LABS: Troponin I 0.198 ng/mL (0.000-0.034)
[2022-03-21] VITALS (21 sets, daily range): BP systolic 96–133; BP diastolic 54–90; PULSE 84–140; RESP 16–22; TEMP 36.3–36.7; O2SAT 97–100
--- NOTE | 2022-03-21 | ECHO_ITS ---
Patient Info Name: Shannon Stahl Age: 86 years : 1935 Gender: Female Ht: 64 in Wt: 150 lbs BSA: 1.77 m2 HR: 98 bpm BP: 118 / 67 mmHg Heart Rhythm: Sinus Rhythm Technical Quality: Fair Exam Date: 03/21/2022 3:59 PM Exam Location: [facility] Pulmonary Patient Status: Inpatient Admit Date: 03/20/2022 Staff Ordering Physician: Shila Asencio MD District Wire Chief: Helga Cunningham RDCS Attending Provider: Jose Luis Abdi MD Referring Physician: Luis M HUGO; Exam Type: CA echo doppler color flow Study Info Indications - chf, h/o MV repair Complete two-dimensional, color flow and Doppler transthoracic echocardiogram is performed. Summary 1. Complete two-dimensional, color flow and Doppler transthoracic echocardiogram is performed. 2. Left ventricular systolic function is moderately reduced, estimated at 30-35%. 3. Hypokinesis of the inferoseptum, apical septum, mid anterioseptum, and mid anterior jaime. 4. There is a mobile mass noted near the LV apex; could possibly be a ruptured false tendon, however, cannot rule out thrombus or vegetation. 5. Left atrial chamber dimension is moderately enlarged. 6. Right atrial chamber dimension is mildly enlarged. 7. There is mild aortic valve regurgitation. 8. Mitral valve prosthesis noted. 9. Mitral valve mean gradient 5mmHg. MV area 2.5cm2. 10. There is moderate mitral valve regurgitation. 11. There is mild tricuspid valve regurgitation. Recommendations * Consider YEFRI for further evaluation of mobile LV mass. Left Ventricle There is a mobile mass noted near the LV apex; could possibly be a ruptured false tendon, however, cannot rule out thrombus or vegetation. Hypokinesis of the inferoseptum, apical septum, mid anterioseptum, and mid anterior jaime. Left ventricular chamber dimension is normal. Left ventricular systolic function is moderately reduced, estimated at 30-35%. There is no increased left ventricular wall thickness. Right Ventricle Right ventricular chamber dimension is normal. Right ventricular systolic function is normal. Left Atria Left atrial chamber dimension is moderately enlarged. Right Atria Right atrial chamber dimension is mildly enlarged. Atrial Septum Intact interatrial septum visualized by color flow imaging. Aortic Valve The aortic valve is not well visualized. There is mild aortic valve sclerosis. There is no aortic valve stenosis. There is mild aortic valve regurgitation. Pulmonic Valve The pulmonic valve is not well visualized. Mitral Valve Mitral valve prosthesis noted. Mitral valve mean gradient 5mmHg. MV area 2.5cm2. There is moderate mitral valve regurgitation. Tricuspid Valve The tricuspid valve leaflets are not well visualized. There is mild tricuspid valve regurgitation. Other Findings Left pleural effusion. Pericardium/Pleural There is no pericardial effusion. Inferior Vena Cava Normal inferior vena cava with >50% collapse upon inspiration consistent with Empty right atrial pressure, 10 mmHg. Aorta The aortic root size at the sinus of Valsalva is normal. The prox ascending aorta size is normal. Left Ventricular Outflow Tract Name Value Normal LVOT 2D LVOT Norma
[2022-03-21] MEDS: COLLAGENASE OINT 30 GM TUBE 1 APPLIC TOPICAL (00:31)
--- NOTE | 2022-03-21 02:44 | PC.NURSE ---
Spoke with Dr. Carr regarding increased HR. Get set of vitals, give 5mg IV push of Lopressor x1 now. Supplemental oxygen, and continuous pulse ox.
[2022-03-21] MEDS: METOPROLOL TARTRATE INJ 5 MG/5 ML VIAL IV PUSH (02:55)
[2022-03-21] MEDS: LEVOTHYROXINE SODIUM 25 MCG TABLET PO (04:45)
[2022-03-21 04:57] LABS: Hematocrit 31.3 % (37.0-47.0); Hemoglobin 10.2 g/dL (12.0-15.0); Mean Corpuscular HGB Conc 32.6 g/dl (32-36); Mean Corpuscular Hemoglobin 33.4 pg (26-34); Mean Corpuscular Volume 102.6 fl (80-100); Mean Platelet Volume 9.6 fl (7.4-10.4); Platelet Count Result 107 k/mm3 (150-375); Red Blood Count 3.05 M/mm3 (4.2-5.4); Red Cell Distribution Width 20.2 % (11.5-14.5)
[2022-03-21 05:10] LABS: Alanine Aminotransferase 189 U/L (6-35); Albumin Level 2.9 g/dL (3.5-5.1); Alkaline Phosphatase 127 U/L (38-126); Anion Gap 7 mmol/L (8-16); Aspartate Amino Transferase 51 U/L (14-36); Bilirubin,Total 1.1 mg/dL (0.2-1.3); Blood Urea Nitrogen 32 mg/dL (7-17); Calcium 7.5 mg/dL (8.4-10.2); Carbon Dioxide 22 mmol/L (22-30); Chloride 109 mmol/L (98-107); Estimated CRCL calculation 49 ml/min; Estimated Glomerular Filt Rate > 60; Glucose 133 mg/dL (65-110); Potassium 3.3 mmol/L (3.4-5.0); Sodium 138 mmol/L (137-145)
[2022-03-21 05:58] LABS: Band Neutrophils Percent 16 % (0-6); Blastocytes 2 %; Lymphocytes Absolute Manual 1.28 K/mm3 (1.1-4.5); Macrocytosis 2+ (NORMAL); Metamyelocytes Percent 2 %; Microcytosis 1+ (NORMAL); Monocytes Absolute Manual 0.24 K/mm3 (0.1-0.90); Monocytes Percent Manual 3 % (3-9); Neutrophils Absolute Manual 6.16 K/mm3 (1.7-7.2); Neutrophils Percent Manual 61 % (46-73); Nucleated Red Blood Cells 3 %; Ovalocytes 1+ (NORMAL); Platelet Estimate Adequate (Adequate); Schistocytes 2+ (NORMAL); Tear Drop Cells 1+ (NORMAL); Total Cells Counted 100
[2022-03-21 05:59] LABS: Acanthocytes 1+ (NORMAL); Atypical Lymphocytes Present; Burr Cells 1+ (NORMAL); Hyperchromasia 1+ (NORMAL); Hypochromasia 1+ (NORMAL); Poikilocytosis 2+ (NORMAL); Smudge Cells FEW
[2022-03-21 06:00] LABS: Anisocytosis 1+ (NORMAL)
--- NOTE | 2022-03-21 09:54 | PM.CNCAR ---
Assessment and Plan Assessment and plan (1) Acute on chronic combined systolic and diastolic CHF (congestive heart failure): Code(s): I50.43 - Acute on chronic combined systolic (congestive) and diastolic (congestive) heart failure Status: Acute Assessment and Plan: Patient has a history of CHF which has been stable for a long time but has been admitted now with acute on chronic systolic and diastolic CHF. No obvious precipitating factors. Continue IV furosemide Daily BMP Echo to evaluate for any progressive mitral valve regurgitation Eventual Lexiscan to evaluate the elevated troponins for any ischemic component. Since she is getting a V/Q scan I Checked with nuclear medicine and is okay to obtain a Lexiscan tomorrow. Change losartan to Entresto if affordable Add BB if BP allows (Metoprolol 12.5 mg BID) Add Farxiga/Jardiance if affordable (2) Elevated troponin: Code(s): R77.8 - Other specified abnormalities of plasma proteins Status: Acute Assessment and Plan: No obvious chest discomfort or EKG changes to suggest an ischemic etiology. No known coronary disease. Repeat EKG Was placed on full-dose Lovenox for concerns regarding NSTEMI but that has been reduced to DVT prophylaxis dose. Noted to have mild thrombocytopenia. (3) History of mitral valve repair: Code(s): Z98.890 - Other specified postprocedural states Status: Acute Assessment and Plan: History mitral valve repair, with mild to moderate mitral regurgitation on echo done September 2021. Re-evaluate with an echocardiogram (4) Thrombocytopenia: Code(s): D69.6 - Thrombocytopenia, unspecified Status: Acute Assessment and Plan: Mild thrombocytopenia noted. (5) Cardiomyopathy: Code(s): I42.9 - Cardiomyopathy, unspecified Status: Acute (6) Acute hypokalemia: Code(s): E87.6 - Hypokalemia Status: Acute (7) Elevated LFTs: Code(s): R79.89 - Other specified abnormal findings of blood chemistry Status: Acute Assessment and Plan: Elevated LFTs, with unusually high LDH. Abnormal CXR. May need further evaluation. Some may be 2nd acute CHF. History of Present Illness History of Present Illness Consult date/time: 03/21/22 09:54 Reason For Visit: CHF, elevated troponin elevated LFTs Narrative: Shannon Stahl is an 86 y.o. female whom I was asked to see at the request of Dr. English for my advice and opinion regarding her CHF, in consultation. I follow the pt for her h/o urgent mitral valve repair 2015 for a flail leaflet, chronic systolic and diastolic CHF, cardiomyopathy (EF 45%), and PVCs. She also has a h/o CKD (Dr. Lobo), TIA, hyperlipidemia, GI bleed, DM, thyroid cancer and chronic fatigue/frailty. Admitted 02/03/2022 w/ hypokalemia, lactic acidosis of unclear etiology. Hydrated. Last seen in our office 02/20/2022 CV stable. The only diuretic she has been on recently was spironolactone. Initially she was doing well with physical therapy but in the last couple weeks she has had a lot of problems with weakness and exhaustion as well as MCKEON and recurrent lower extremity edema. She came to the emergency room yesterday and was found to be in CHF. Pro-BNP was 17,800 and troponins elevated (peak 0.240). No PND orthopnea. No chest pain, pressure or tightness, or indigestion. Stays on a low-salt diet. No nonsteroidal ingestion. She has been started on IV Lasix. Hypokalemia has been addressed as well. Given some Lovenox. VQ scan and LE dopplers ordered. Review of Systems Constitutional: Constitutional: Reports fatigue, Denies fever(s), Reports lethargy and Reports malaise Cardiovascular: Cardiovascular: Denies chest pain, Reports pedal edema, Reports leg edema, Denies lightheadedness, Denies palpitations and Reports dyspnea Respiratory: Respiratory: Denies chest congestion and Denies dyspnea Gastrointestinal: Gastrointestinal:
[2022-03-21] MEDS: LOSARTAN POTASSIUM 25 MG TABLET PO (10:33)
[2022-03-21] MEDS: ATORVASTATIN 10 MG TABLET PO (10:33)
[2022-03-21] MEDS: SPIRONOLACTONE 25 MG TABLET PO (10:33)
[2022-03-21] MEDS: CITALOPRAM HYDROBROMIDE 10 MG TABLET PO (10:33)
[2022-03-21] MEDS: ASPIRIN 81 MG ENTERIC TABLET PO (10:33)
[2022-03-21] MEDS: CHOLECALCIFEROL 1,000 UNITS TABLET 1000 UNITS PO (10:36)
--- NOTE | 2022-03-21 11:17 | ECG_ITS ---
Measurements Intervals [place] Rate: 108 P: 60 DE: 153 QRS: -4 QRSD: 87 T: 56 QT: 335 QTc: 450 Interpretive Statements SINUS TACHYCARDIA ATRIAL COUPLETS AND ATRIAL PREMATURE COMPLEXES NONSPECIFIC ST & T-WAVE ABNORMALITY- ANTEROLAT/INF LEADS BASELINE ARTIFACT- I, II, V3 ABNORMAL ECG COMPARED TO ECG 03/20/2022 14:04:14 NO SIGNIFICANT CHANGES Electronically Signed On 03-21-2022 14:45:17 CDT by Marcos Pineda D.O.
[2022-03-21 11:35] LABS: Lactic Acid Reflex 1.1 mmol/L (0.7-2.0)
[2022-03-21] MEDS: FUROSEMIDE INJ 40 MG/4 ML VIAL IV PUSH ×2 (12:24→20:58)
[2022-03-21] MEDS: POTASSIUM CHLORIDE 20 MEQ TABLET 40 MEQ PO (12:25)
[2022-03-21 13:08] LABS: Appearance Urine Clear (Clear); Bilirubin Urine Negative (Negative); Blood Urine Trace-lysed (Negative); Color Urine Yellow (Yellow); Glucose Urine UA Negative (Negative); Ketones Urine Negative (Negative); Leukocyte Esterase Ur Negative LEU/UL (Negative); Nitrate Urine Negative (Negative); Protein Urine 1+ mg/dL (Negative); Specific Grav Ur 1.015 (1.001-1.035); pH Urine 5.5 (5.0-9.0)
[2022-03-21 13:37] LABS: Add Urine Microscopic? YES; Bacteria Urine Trace /hpf; RBC Urine 0-2 /hpf (0-2); WBC Urine 0-3 /hpf
[2022-03-21] MEDS: ENOXAPARIN 80 MG/0.8 ML SYRINGE 70 MG SUB-Q (18:40)
--- NOTE | 2022-03-21 19:00 | PM.IMPN ---
Progress Note: A&P Assessment and Plan (1) Elevated troponin: Code(s): R77.8 - Other specified abnormalities of plasma proteins Status: Acute Assessment and Plan: She is not having any chest pain whatsoever and EKG does not show acute ST segment changes. However her troponin is modestly elevated and she has marked elevation proBNP thus I will ask Dr. Asencio to see her. The patient just had an echocardiogram but it may be prudent to obtain a limited echo however will defer that to Cardiology. 03/21/2022 interval history: 86-year-old female presented with a shortness of breath and lower extremity edema patient had a cardiac echo in September of this seizure which showed very mild reduced ejection fraction of 50% and grade 1 diastolic dysfunction patient has acute on chronic combined systolic diastolic congestive heart failure patient is seen by Cardiology recommending to continue to diurese with IV Lasix and recommended to repeat cardiac echo further evaluate, patient with elevated to tropes, seen by cardiology does not suspect acute coronary since most likely demand ischemia secondary to exacerbation of CHF, patient remains clinically stable denies any chest pain or shortness of breath current and wants to go home, her daughter is present in the room, will continue to diurese the patient will have a PT OT evaluate patient will benefit with acute rehab. (2) Shortness of breath: Code(s): R06.02 - Shortness of breath Status: Acute Assessment and Plan: This has been an ongoing issue for the last week or so. I am not certain she has an active pulmonary infection though imaging suggests small bilateral pleural effusions with patchy infiltrates and/or atelectasis in the lower lung zones. With an elevated troponin and proBNP in addition to decreased activity recently, pulmonary embolism certainly is a consideration. She has a contrast allergy and at this time I will start her on empiric Lovenox 1 milligram/kilogram b.i.d., pending V/Q scan tomorrow. Check lower extremity venous Doppler ultrasounds as well to rule out DVT. (3) Heart failure with reduced ejection fraction: Code(s): I50.20 - Unspecified systolic (congestive) heart failure Status: Acute Assessment and Plan: Most recent EF was measured at 45%. She does appear clinically compensated however her labs ( elevated troponin, proBNP, and LFTs) suggests that she may have some congestion. She was given a dose of Lasix 40 milligrams IV x1 in the ER and we will see how she responds to that. (4) Transaminitis: Code(s): R74.01 - Elevation of levels of liver transaminase levels Status: Acute Assessment and Plan: Etiology is not entirely clear. Her abdominal exam is benign. She gives no history to suggest acute hepatitis though will check hepatitis panel. Right upper quadrant ultrasound has been ordered for a.m.. With markedly elevated proBNP, she may have hepatic congestion from heart failure though she does not look acutely volume overloaded. (5) Macrocytic anemia: Code(s): D53.9 - Nutritional anemia, unspecified Status: Acute Assessment and Plan: Check iron studies as well as B12 and folates. (6) Thrombocytopenia: Code(s): D69.6 - Thrombocytopenia, unspecified Status: Acute Assessment and Plan: She has a mild thrombocytopenia which has been noted on labs intermittently over the years. Monitor for now. (7) Elevated lactic acid level: Code(s): R79.89 - Other specified abnormal findings of blood chemistry Status: Acute Assessment and Plan: No evidence to suggest acute underlying infection. On review of previous labs her lactic acid level is always a bit elevated. May very well be related to metformin which has been placed on hold. Blood cultures have been obtained. Subjective Date/time seen: 03/21/22 19:00 HPI-Narrative: This is an 86-year-old female
[2022-03-21] MEDS: METOPROLOL TARTRATE 12.5 MG TABLET PO (20:58)
[2022-03-22] VITALS (15 sets, daily range): BP systolic 95–121; BP diastolic 61–76; PULSE 76–104; RESP 18–20; TEMP 36.3–36.9; O2SAT 98–100
[2022-03-22] MEDS: ENOXAPARIN 80 MG/0.8 ML SYRINGE 70 MG SUB-Q ×2 (04:50→19:06)
[2022-03-22 05:03] LABS: Anion Gap 10 mmol/L (8-16); Blood Urea Nitrogen 30 mg/dL (7-17); Calcium 7.2 mg/dL (8.4-10.2); Carbon Dioxide 30 mmol/L (22-30); Chloride 99 mmol/L (98-107); Estimated CRCL calculation 43 ml/min; Estimated Glomerular Filt Rate > 60; Glucose 237 mg/dL (65-110); Sodium 139 mmol/L (137-145)
[2022-03-22] MEDS: POTASSIUM CHLORIDE 20 MEQ TABLET 40 MEQ PO (05:52)
--- NOTE | 2022-03-22 08:00 | EST_ITS ---
Patient Info Name: Shannon Stahl Age: 86 years : 1935 Gender: Female Ht: 64 in Wt: 150 lbs BSA: 1.77 m2 Exam Date: 03/22/2022 11:33 AM Exam Location: [facility] Stress Patient Status: Inpatient Admit Date: 03/20/2022 Staff Ordering Physician: Shila Asencio MD Attending Provider: Jose Luis Abdi MD Exercise Technologist: Nam Calvert RDCS, RT Exercise Physician: Kevin Escobar MD Exam Type: CA stress benjamín w NM Study Info A regadenoson stress test was performed. Summary 1. Normal sinus rhythm with PACs. 2. Sinus rhythm / sinus tachycardia with PACs. 3. Please correlate with nuclear medicine images, reported separately. 4. No abnormal ST-T wave changes with lexiscan. Protocol: Lexiscan Stress ECG Details Stage: REST Duration (min): 1 min : 21 sec HR (bpm): 91 SBP (mmHg): 114 DBP (mmHg): 71 Stage: REST Duration (min): 10 min : 14 sec HR (bpm): 85 SBP (mmHg): 114 DBP (mmHg): 71 Stage: STAGE 1 Duration (min): 0 min : 59 sec HR (bpm): 80 SBP (mmHg): 122 DBP (mmHg): 77 Stage: RECOVERY Duration (min): 1 min : 0 sec HR (bpm): 95 SBP (mmHg): 122 DBP (mmHg): 77 Stage: RECOVERY Duration (min): 2 min : 0 sec HR (bpm): 100 SBP (mmHg): 122 DBP (mmHg): 77 Stage: RECOVERY Duration (min): 3 min : 0 sec HR (bpm): --- SBP (mmHg): 114 DBP (mmHg): 73 Stage: RECOVERY Duration (min): 3 min : 41 sec HR (bpm): --- SBP (mmHg): 114 DBP (mmHg): 73 Rest HR: 85 bpm Peak HR: 109 bpm Rest Sys BP: 114 mmHg Peak Sys BP: 122 mmHg Max Pred HR: 134 bpm % Max Pred HR: 81 % Target HR: 114 bpm Max RPP: 13,298 bpm*mmHg Total Time: 1 min : 0 sec Rest Garcia BP: 71 mmHg Peak Garcia BP: 77 mmHg Total Dose: 0.4 mg Resting ECG Normal sinus rhythm with PACs. Stress ECG Sinus rhythm / sinus tachycardia with PACs. No abnormal ST/T wave changes with exercise. Report Signatures
[2022-03-22 09:48] LABS: Basophils Percent Auto 0.5 % (0.2-1.2); Eosinophils Percent Auto 0.1 % (0-4.4); Hematocrit 32.8 % (37.0-47.0); Hemoglobin 10.5 g/dL (12.0-15.0); Immature Granulocyte Percent A 5.2 % (0-0.5); Lymphocytes Absolute Auto 1.83 K/mm3 (0.9-3.2); Lymphocytes Percent Auto 23.9 % (18.3-44.2); Mean Corpuscular Hemoglobin 33.4 pg (26-34); Mean Corpuscular Volume 104.5 fl (80-100); Monocytes Absolute Auto 0.4 K/mm3 (0.1-0.6); Monocytes Percent Auto 5.8 % (2.6-8.5); Neutrophils Absolute Auto 4.9 K/mm3 (1.3-6.7); Neutrophils Percent Auto 64.5 % (45.5-73.1); Nucleated Red Blood Cells Absolute Auto 0.2 K/mm3 (0.0-0.012); Nucleated Red Blood Cells Perc 3.1 % (0.0-0.2); Platelet Count Result 111 k/mm3 (150-375); Red Blood Count 3.14 M/mm3 (4.2-5.4); White Blood Count 7.7 K/mm3 (4.5-10.0)
[2022-03-22] MEDS: CHOLECALCIFEROL 1,000 UNITS TABLET 1000 UNITS PO (09:49)
[2022-03-22] MEDS: ATORVASTATIN 10 MG TABLET PO (09:49)
[2022-03-22] MEDS: LOSARTAN POTASSIUM 25 MG TABLET PO (09:49)
[2022-03-22] MEDS: POTASSIUM CHLORIDE INJ 40 MEQ in SODIUM CHLORIDE 0.9% IV 500 ML 130 MEQ IVPB (09:49)
[2022-03-22] MEDS: METOPROLOL TARTRATE 12.5 MG TABLET PO ×2 (09:49→20:16)
[2022-03-22] MEDS: ASPIRIN 81 MG ENTERIC TABLET PO (09:49)
[2022-03-22] MEDS: CITALOPRAM HYDROBROMIDE 10 MG TABLET PO (09:50)
[2022-03-22 10:02] LABS: Alanine Aminotransferase 150 U/L (6-35); Alkaline Phosphatase 116 U/L (38-126); Anion Gap 8 mmol/L (8-16); Aspartate Amino Transferase 36 U/L (14-36); Bilirubin,Total 1.2 mg/dL (0.2-1.3); Blood Urea Nitrogen 33 mg/dL (7-17); Calcium 7.2 mg/dL (8.4-10.2); Carbon Dioxide 26 mmol/L (22-30); Chloride 104 mmol/L (98-107); Estimated CRCL calculation 49 ml/min; Estimated Glomerular Filt Rate > 60; Glucose 193 mg/dL (65-110); Potassium 3.3 mmol/L (3.4-5.0); Sodium 138 mmol/L (137-145)
[2022-03-22 10:16] LABS: Platelet Estimate Adequate (Adequate)
[2022-03-22 10:17] LABS: Acanthocytes 2+ (NORMAL); Anisocytosis 1+ (NORMAL); Hypochromasia 1+ (NORMAL); Poikilocytosis 1+ (NORMAL)
[2022-03-22 10:27] LABS: Schistocytes None Seen (NORMAL)
--- NOTE | 2022-03-22 10:53 | PCPTNOTE ---
Attemtped PT evaluation, pt at stress test. Will follow.
--- NOTE | 2022-03-22 11:43 | PCOTNOTE ---
Attempted to see patient. Per nursing report, patient currently has DVT and unable to transfer and is off floor for stress test.
[2022-03-22] MEDS: SPIRONOLACTONE 25 MG TABLET PO (12:36)
[2022-03-22] MEDS: FUROSEMIDE INJ 40 MG/4 ML VIAL IV PUSH ×2 (12:36→20:16)
--- NOTE | 2022-03-22 14:52 | PM.IMPN ---
Progress Note: A&P Assessment and Plan (1) Elevated troponin: Code(s): R77.8 - Other specified abnormalities of plasma proteins Status: Acute Assessment and Plan: Echo and stress test ordered Cardiology rounding (2) Shortness of breath: Code(s): R06.02 - Shortness of breath Status: Acute Assessment and Plan: Pt found to have DVT pt is on Lovenox 1 milligram/kilogram b.i.d. (3) Heart failure with reduced ejection fraction: Code(s): I50.20 - Unspecified systolic (congestive) heart failure Status: Acute Assessment and Plan: Most recent EF was measured at 45%. She does appear clinically compensated however her labs ( elevated troponin, proBNP, and LFTs) suggests that she may have some congestion. pt is on iv lasix bid (4) Transaminitis: Code(s): R74.01 - Elevation of levels of liver transaminase levels Status: Acute Assessment and Plan: Etiology is not entirely clear? related to hepatic congestion. (5) Macrocytic anemia: Code(s): D53.9 - Nutritional anemia, unspecified Status: Acute Assessment and Plan: Check iron studies as well as B12 and folates. (6) Thrombocytopenia: Code(s): D69.6 - Thrombocytopenia, unspecified Status: Acute Assessment and Plan: She has a mild thrombocytopenia (7) Elevated lactic acid level: Code(s): R79.89 - Other specified abnormal findings of blood chemistry Status: Acute Assessment and Plan: No evidence to suggest acute underlying infection. Subjective Date/time seen: 03/22/22 14:52 86-year-old female with? history of heart failure with reduced ejection fraction (09/2021 TTE LVEF 45%, grade 1 diastolic dysfunction),? valvular heart disease status post bioprosthetic mitral valve repair in July 2015, hypertension, dyslipidemia, thyroid cancer status post thyroidectomy with postsurgical hypothyroidism, [id number] type 2 diabetes mellitus and history of GI bleed secondary to ulcers in August 2015 who presented to the emergency department via EMS from home for evaluation of shortness of breath. Pt found to have a Deep vein thrombosis involving the left peroneal veins Pt had echo and stress test ordered under cardiology Pt feels tired and is resting in bed Exam Narrative: Patient is comfortable, NAD HEENT: eyes are clear and none icteric LUNGS: bilateral fair air entry with rales and rhonchi HEART: RR S1S2 ABD: not distended Lower extremities: edema SKIN: nonjaundiced Neuro: grossly intact. Objective Data Vital Signs Vital Signs: Vital Signs - 24 hr 03/21/22 16:43 03/21/22 16:00 03/21/22 16:00 Temperature 36.3 C L Pulse Rate 104 H 105 H Respiratory Rate 16 Blood Pressure 96/54 L Pulse Oximetry 99 97 Oxygen Delivery Nasal Cannula Oxygen Flow Rate 3 03/21/22 18:00 03/21/22 20:00 03/21/22 20:00 Temperature 36.6 C Pulse Rate 106 H 101 H 103 H Respiratory Rate 20 Blood Pressure 116/69 Pulse Oximetry 100 Oxygen Delivery Oxygen Flow Rate 03/21/22 20:58 03/21/22 22:00 03/21/22 23:15 Temperature 36.6 C Pulse Rate 103 H 89 100 Respiratory Rate 20 Blood Pressure 110/66 Pulse Oximetry 100 Oxygen Delivery Oxygen Flow Rate 03/22/22 00:00 03/22/22 00:00 03/22/22 02:00 Temperature Pulse Rate 81 96 Respiratory Rate Blood Pressure Pulse Oximetry 100 Oxygen Delivery Nasal Cannula Oxygen Flow Rate 4 03/22/22 04:00 03/22/22 04:00 03/22/22 04:00 Temperature 36.7 C Pulse Rate 86 90 90 Respiratory Rate 18 Blood Pressure 105/72 Pulse Oximetry 99 100 Oxygen Delivery Nasal Cannula Oxygen Flow Rate 4 03/22/22 06:00 03/22/22 08:00 03/22/22 08:00 Temperature 36.3 C L Pulse Rate 87 87 92 Respiratory Rate 20 Blood Pressure 119/75 Pulse Oximetry 100 Oxygen Delivery Oxygen Flow Rate 03/22/22 09:49
--- NOTE | 2022-03-22 17:40 | PM.PNCARD ---
Progress Note: A&P Assessment and Plan (1) Acute on chronic combined systolic and diastolic CHF (congestive heart failure): Code(s): I50.43 - Acute on chronic combined systolic (congestive) and diastolic (congestive) heart failure Status: Acute Assessment and Plan: Patient has a history of CHF which has been stable for a long time but has been admitted now with acute on chronic systolic and diastolic CHF. No obvious precipitating factors. Improving with less edema, lungs clear, diuresing well. Lexiscan excluded a significant ischemic component. Echo shows worsening of left ventricular function, EF 30-35% by echo and 39% by Lexiscan Continue IV furosemide for another day or 2. Daily BMP Tolerating the addition of Metoprolol 12.5 mg BID Started on low-dose losartan 25 mg daily. Adding Farxiga/Jardiance, hopefully affordable. (2) Elevated troponin: Code(s): R77.8 - Other specified abnormalities of plasma proteins Status: Acute Assessment and Plan: No obvious chest discomfort or EKG changes to suggest an ischemic etiology. No known coronary disease. Repeat EKG showed NSR with APCs, nonspecific ST changes on my personal review ( no a fib on Tele) Lexiscan negative for ischemia Elevated troponins appear to be secondary to heart failure (3) History of mitral valve repair: Code(s): Z98.890 - Other specified postprocedural states Status: Acute Assessment and Plan: History mitral valve repair, with mild to moderate mitral regurgitation on echo done September 2021. Stable mitral valve repair (4) Thrombocytopenia: Code(s): D69.6 - Thrombocytopenia, unspecified Status: Acute Assessment and Plan: Mild thrombocytopenia noted. (5) Mass of left cardiac ventricle: Code(s): I51.89 - Other ill-defined heart diseases Status: Acute Assessment and Plan: Echo showed possible ruptured false tendon versus thrombus or vegetation. Will review; vegetation unlikely. (6) Cardiomyopathy: Code(s): I42.9 - Cardiomyopathy, unspecified Status: Acute Assessment and Plan: EF 30-39% (7) Acute hypokalemia: Code(s): E87.6 - Hypokalemia Status: Acute Assessment and Plan: Supplement (8) DVT (deep venous thrombosis): Code(s): I82.409 - Acute embolism and thrombosis of unspecified deep veins of unspecified lower extremity Status: Acute Assessment and Plan: Has a DVT of the peroneal veins, now on Lovenox. (9) Elevated LFTs: Code(s): R79.89 - Other specified abnormal findings of blood chemistry Status: Acute Assessment and Plan: Elevated LFTs, with unusually high LDH. Abnormal CXR. May need further evaluation. Some may be 2nd acute CHF. Improving Subjective Date/time seen: 03/22/22 17:40 Follow-up for acute on chronic systolic and diastolic heart failure. Started on IV furosemide this admission. Echo this admission shows a decline in her EF from 45-50% now 30-35%, stable mild to moderate mitral regurgitation, and a mobile mass near the LV apex, possibly a false tendon rule out thrombus or vegetation. Hypokinesis of the inferior septal, apical septal, mid anteroseptal and mid anterior jaime. Dr. Asencio follows the pt for her h/o urgent mitral valve repair 2015 for a flail leaflet, chronic systolic and diastolic CHF, cardiomyopathy (EF 45%), and PVCs.? She also has a h/o CKD (Dr. Lobo), TIA, hyperlipidemia, GI bleed, DM, thyroid cancer and chronic fatigue/frailty.?Admitted 02/03/2022 w/ hypokalemia, lactic acidosis of unclear etiology.? Hydrated.? Last seen in our office 02/20/2022 CV stable.? The only diuretic she has been on recently was spironolactone.? Date of service 03/22/2022: Busy day. No shortness of breath at rest. On 3 L O2. Diuresing very well. Remains hypokalemic. Telemetry shows sinus rhythm and sinus tachycardia with frequent APCs and some PVCs.
[2022-03-23] VITALS (14 sets, daily range): BP systolic 105–118; BP diastolic 65–85; PULSE 78–111; RESP 16–20; TEMP 36.1–37.3; O2SAT 94–100
[2022-03-23 05:05] LABS: Potassium 2.6 mmol/L (3.4-5.0)
[2022-03-23] MEDS: POTASSIUM CHLORIDE INJ 40 MEQ in SODIUM CHLORIDE 0.9% IV 500 ML 130 MEQ IVPB (06:18)
[2022-03-23] MEDS: POTASSIUM CHLORIDE 20 MEQ TABLET 40 MEQ PO (06:19)
[2022-03-23] MEDS: LEVOTHYROXINE SODIUM 25 MCG TABLET PO (06:19)
[2022-03-23] MEDS: ENOXAPARIN 80 MG/0.8 ML SYRINGE 70 MG SUB-Q ×2 (06:19→16:57)
--- NOTE | 2022-03-23 08:17 | PCOTNOTE ---
Attempted to see pt. for occupational therapy evaluation. Per nursing, there are concerns that pt. has pleural effusion, as well as recent discovery of DVT, requesting we see pt. at later time for out of bed activity due to safety concerns. Following.
--- NOTE | 2022-03-23 08:51 | PCPTNOTE ---
Attempted to see pt. for Physical therapy evaluation. Per nursing, there are concerns that pt. has pleural effusion, as well as recent discovery of DVT, requesting we see pt. at later time for out of bed activity due to safety concerns. Following.
[2022-03-23 09:03] LABS: Hematocrit 32.8 % (37.0-47.0); Hemoglobin 10.6 g/dL (12.0-15.0); Mean Corpuscular HGB Conc 32.3 g/dl (32-36); Mean Corpuscular Hemoglobin 33.9 pg (26-34); Mean Corpuscular Volume 104.8 fl (80-100); Mean Platelet Volume 10.3 fl (7.4-10.4); Platelet Count Result 127 k/mm3 (150-375); Red Blood Count 3.13 M/mm3 (4.2-5.4); Red Cell Distribution Width 20.5 % (11.5-14.5); White Blood Count 6.8 K/mm3 (4.5-10.0)
[2022-03-23 09:29] LABS: Alanine Aminotransferase 124 U/L (6-35); Albumin Level 2.9 g/dL (3.5-5.1); Alkaline Phosphatase 112 U/L (38-126); Anion Gap 5 mmol/L (8-16); Aspartate Amino Transferase 32 U/L (14-36); Bilirubin,Total 1.1 mg/dL (0.2-1.3); Blood Urea Nitrogen 36 mg/dL (7-17); Carbon Dioxide 32 mmol/L (22-30); Chloride 99 mmol/L (98-107); Estimated CRCL calculation 38 ml/min; Estimated Glomerular Filt Rate > 60; Glucose 236 mg/dL (65-110); Potassium 2.7 mmol/L (3.4-5.0); Sodium 136 mmol/L (137-145)
[2022-03-23] MEDS: SPIRONOLACTONE 25 MG TABLET PO (09:34)
[2022-03-23] MEDS: CHOLECALCIFEROL 1,000 UNITS TABLET 1000 UNITS PO (09:34)
[2022-03-23] MEDS: METOPROLOL TARTRATE 12.5 MG TABLET PO ×2 (09:35→20:34)
[2022-03-23] MEDS: CITALOPRAM HYDROBROMIDE 10 MG TABLET PO (09:35)
[2022-03-23] MEDS: LOSARTAN POTASSIUM 25 MG TABLET PO (09:35)
[2022-03-23] MEDS: ATORVASTATIN 10 MG TABLET PO (09:35)
[2022-03-23] MEDS: FUROSEMIDE INJ 40 MG/4 ML VIAL IV PUSH ×2 (09:37→20:34)
[2022-03-23] MEDS: ASPIRIN 81 MG ENTERIC TABLET PO (09:37)
[2022-03-23] MEDS: EMPAGLIFLOZIN 10 MG TABLET PO (09:38)
[2022-03-23] MEDS: INSULIN ASPART (*BKC) 100 UNITS/ML SUB-Q (11:00)
[2022-03-23 11:08] LABS: Hemoglobin A1C 6.8 % (<5.7)
[2022-03-23 11:15] LABS: Glucose Point of Care 211 mg/dl (65-105)
--- NOTE | 2022-03-23 11:36 | PM.PNCARD ---
Progress Note: A&P Assessment and Plan (1) Acute on chronic combined systolic and diastolic CHF (congestive heart failure): Code(s): I50.43 - Acute on chronic combined systolic (congestive) and diastolic (congestive) heart failure Status: Acute Assessment and Plan: Patient has a history of CHF which has been stable for a long time but has been admitted now with acute on chronic systolic and diastolic CHF. No obvious precipitating factors. Improved. Lexiscan excluded a significant ischemic component. Echo shows worsening of left ventricular function, EF 30-35% by echo and 39% by Lexiscan Shift to p.o. furosemide tomorrow Daily BMP Tolerating the addition of Metoprolol 12.5 mg BID Started on low-dose losartan 25 mg daily. Adding Farxiga/Jardiance, hopefully affordable. (2) Elevated troponin: Code(s): R77.8 - Other specified abnormalities of plasma proteins Status: Acute Assessment and Plan: No obvious chest discomfort or EKG changes to suggest an ischemic etiology. No known coronary disease. Repeat EKG showed NSR with APCs, nonspecific ST changes on my personal review ( no a fib on Tele) Lexiscan negative for ischemia Elevated troponins appear to be secondary to heart failure (3) History of mitral valve repair: Code(s): Z98.890 - Other specified postprocedural states Status: Acute Assessment and Plan: History mitral valve repair, with mild to moderate mitral regurgitation on echo done September 2021. Stable mitral valve repair (4) Thrombocytopenia: Code(s): D69.6 - Thrombocytopenia, unspecified Status: Acute Assessment and Plan: Mild thrombocytopenia noted. (5) Mass of left cardiac ventricle: Code(s): I51.89 - Other ill-defined heart diseases Status: Acute Assessment and Plan: Echo showed possible ruptured false tendon versus thrombus or vegetation. Discussed echo with Dr. Asencio, thinks ruptured chordae. No YEFRI indicated for further workup given no suspicion for endocarditis. (6) Cardiomyopathy: Code(s): I42.9 - Cardiomyopathy, unspecified Status: Acute Assessment and Plan: EF 30-39% (7) Acute hypokalemia: Code(s): E87.6 - Hypokalemia Status: Acute Assessment and Plan: Supplement (8) DVT (deep venous thrombosis): Code(s): I82.409 - Acute embolism and thrombosis of unspecified deep veins of unspecified lower extremity Status: Acute Assessment and Plan: Has a DVT of the peroneal veins, now on Lovenox. (9) Elevated LFTs: Code(s): R79.89 - Other specified abnormal findings of blood chemistry Status: Acute Assessment and Plan: Elevated LFTs, with unusually high LDH. Abnormal CXR. May need further evaluation. Some may be secondary to acute CHF. Improving Subjective Date/time seen: 03/23/22 11:36 Cardiology follow up for CHF Feels ok today, complaining of fatigue and weakness. No chest pain, shortness of breath, palpitations. Review of Systems Constitutional: Constitutional: Reports fatigue, Denies fever(s), Reports lethargy and Reports malaise Cardiovascular: Cardiovascular: Denies chest pain, Denies pedal edema, Reports leg edema, Denies lightheadedness, Denies palpitations and Denies dyspnea Respiratory: Respiratory: Denies chest congestion and Denies dyspnea Gastrointestinal: Gastrointestinal: Denies abdominal pain and Denies hematochezia Musculoskeletal: Musculoskeletal: Reports no additional musculoskeletal complaints Integumentary/Breasts: Skin/Breast: Reports system reviewed and no additional complaints, except as docu Neurologic: Reports system reviewed and no additional complaints, except as documented, Denies behavioral changes and Denies confusion Psychiatric: Psychiatric: Denies behavioral changes and Denies confusion Endocrine: Endocrine: Reports fatigue and Denies palpitations Exam Const:
--- NOTE | 2022-03-23 13:30 | PC.NURSE ---
On 03/23/22, the student, [Britney Diggs], provided care and completed [facility] documentation on this patient. I have reviewed the student's documentation and agree with the findings.
[2022-03-23 17:10] LABS: Glucose Point of Care 169 mg/dl (65-105)
[2022-03-23 17:19] LABS: Potassium 3.6 mmol/L (3.4-5.0)
--- NOTE | 2022-03-23 17:40 | PM.IMPN ---
Progress Note: A&P Assessment and Plan (1) Elevated troponin: Code(s): R77.8 - Other specified abnormalities of plasma proteins Status: Acute Assessment and Plan: She is not having any chest pain whatsoever and EKG does not show acute ST segment changes. However her troponin is modestly elevated and she has marked elevation proBNP Cardiology has been consulted. EchoWith EF 30-35% which is worsened compared to previous levels Status post Lexiscan with EF 39% negative for ischemia Echo showed possible ruptured false tendon versus thrombus or vegetation. Suspected to be ruptured chordae tendineae. No T needed (2) Shortness of breath: Code(s): R06.02 - Shortness of breath Status: Acute Assessment and Plan: This has been an ongoing issue for the last week or so. I am not certain she has an active pulmonary infection though imaging suggests small bilateral pleural effusions with patchy infiltrates and/or atelectasis in the lower lung zones. With an elevated troponin and proBNP in addition to decreased activity recently, pulmonary embolism certainly is a consideration. She has a contrast allergy and at this time she was started on empiric Lovenox 1 milligram/kilogram b.i.d. Venous duplex positive for DVT of peroneal veins V/Q scan indeterminate Currently on Lovenox (3) Heart failure with reduced ejection fraction: Code(s): I50.20 - Unspecified systolic (congestive) heart failure Status: Acute Assessment and Plan: Most recent EF was measured at 45%. She does appear clinically compensated however her labs (elevated troponin, proBNP, and LFTs) suggests that she may have some congestion. She was given a dose of Lasix 40 milligrams IV x1 in the ER Continue diuresis as tolerated No shortness of breaths likely related to her PE (4) Transaminitis: Code(s): R74.01 - Elevation of levels of liver transaminase levels Status: Acute Assessment and Plan: Etiology is not entirely clear. Her abdominal exam is benign. She gives no history to suggest acute hepatitis though will check hepatitis panel. Right upper quadrant ultrasound has been ordered for a.m.. With markedly elevated proBNP, she may have hepatic congestion from heart failure though she does not look acutely volume overloaded. (5) Macrocytic anemia: Code(s): D53.9 - Nutritional anemia, unspecified Status: Acute Assessment and Plan: Check iron studies as well as B12 and folates. (6) Thrombocytopenia: Code(s): D69.6 - Thrombocytopenia, unspecified Status: Acute Assessment and Plan: She has a mild thrombocytopenia which has been noted on labs intermittently over the years. Monitor for now. (7) Elevated lactic acid level: Code(s): R79.89 - Other specified abnormal findings of blood chemistry Status: Acute Assessment and Plan: No evidence to suggest acute underlying infection. On review of previous labs her lactic acid level is always a bit elevated. May very well be related to metformin which has been placed on hold. Blood cultures have been obtained. Plan hypokalemia replace and recheck monitor Type 2 diabetes A1c 6.8. On metformin at home which has been stopped. Continue SSI Subjective Date/time seen: 03/23/22 17:40 Interval history: HPI: This is an 86-year-old female with? history of heart failure with reduced ejection fraction (09/2021 TTE LVEF 45%, grade 1 diastolic dysfunction),? 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 She was admitted to the hospital in early January with lab abnormal
[2022-03-23 19:57] LABS: Glucose Point of Care 233 mg/dl (65-105)
[2022-03-24] VITALS (9 sets, daily range): BP systolic 87–104; BP diastolic 51–71; PULSE 71–110; RESP 16–20; TEMP 36.4–36.6; O2SAT 100
[2022-03-24] MEDS: ENOXAPARIN 80 MG/0.8 ML SYRINGE 70 MG SUB-Q ×2 (05:21→16:24)
[2022-03-24 05:23] LABS: Basophils Percent Auto 0.3 % (0.2-1.2); Hematocrit 32.7 % (37.0-47.0); Hemoglobin 10.9 g/dL (12.0-15.0); Immature Granulocyte Absolute 0.42 K/mm3 (0.00-0.031); Immature Granulocyte Percent A 4.7 % (0-0.5); Lymphocytes Percent Auto 23.7 % (18.3-44.2); Mean Corpuscular HGB Conc 33.3 g/dl (32-36); Mean Corpuscular Hemoglobin 34.2 pg (26-34); Mean Corpuscular Volume 102.5 fl (80-100); Mean Platelet Volume 10.2 fl (7.4-10.4); Monocytes Absolute Auto 0.4 K/mm3 (0.1-0.6); Monocytes Percent Auto 4.1 % (2.6-8.5); Neutrophils Percent Auto 67.2 % (45.5-73.1); Nucleated Red Blood Cells Absolute Auto 0.2 K/mm3 (0.0-0.012); Nucleated Red Blood Cells Perc 1.7 % (0.0-0.2); Platelet Count Result 124 k/mm3 (150-375); Red Blood Count 3.19 M/mm3 (4.2-5.4); Red Cell Distribution Width 20.1 % (11.5-14.5); White Blood Count 8.9 K/mm3 (4.5-10.0)
[2022-03-24 05:38] LABS: Alanine Aminotransferase 111 U/L (6-35); Albumin Level 3.1 g/dL (3.5-5.1); Alkaline Phosphatase 102 U/L (38-126); Anion Gap 6 mmol/L (8-16); Aspartate Amino Transferase 29 U/L (14-36); Bilirubin,Total 1.2 mg/dL (0.2-1.3); Blood Urea Nitrogen 34 mg/dL (7-17); Calcium 7.2 mg/dL (8.4-10.2); Carbon Dioxide 33 mmol/L (22-30); Chloride 101 mmol/L (98-107); Estimated CRCL calculation 43 ml/min; Estimated Glomerular Filt Rate > 60; Glucose 164 mg/dL (65-110); Potassium 2.9 mmol/L (3.4-5.0); Sodium 140 mmol/L (137-145)
[2022-03-24] MEDS: POTASSIUM CHLORIDE 20 MEQ TABLET 40 MEQ PO (06:51)
[2022-03-24] MEDS: POTASSIUM CHLORIDE INJ 40 MEQ in SODIUM CHLORIDE 0.9% IV 500 ML 130 MEQ IVPB (06:52)
[2022-03-24] MEDS: MAGNESIUM SULF 2 GM/WATER 50ML 2 GM/50 ML BAG IVPB (08:36)
[2022-03-24] MEDS: CHOLECALCIFEROL 1,000 UNITS TABLET 1000 UNITS PO (08:36)
[2022-03-24] MEDS: SPIRONOLACTONE 25 MG TABLET PO (08:37)
[2022-03-24] MEDS: EMPAGLIFLOZIN 10 MG TABLET PO (08:37)
[2022-03-24] MEDS: ATORVASTATIN 10 MG TABLET PO (08:37)
[2022-03-24] MEDS: CITALOPRAM HYDROBROMIDE 10 MG TABLET PO (08:37)
[2022-03-24] MEDS: LOSARTAN POTASSIUM 25 MG TABLET PO (08:37)
[2022-03-24] MEDS: METOPROLOL TARTRATE 12.5 MG TABLET PO (08:37)
[2022-03-24] MEDS: FUROSEMIDE INJ 40 MG/4 ML VIAL IV PUSH (08:37)
[2022-03-24] MEDS: ASPIRIN 81 MG ENTERIC TABLET PO (08:37)
--- NOTE | 2022-03-24 10:03 | PM.IMPN ---
Progress Note: A&P Assessment and Plan (1) Elevated troponin: Code(s): R77.8 - Other specified abnormalities of plasma proteins Status: Acute Assessment and Plan: She is not having any chest pain whatsoever and EKG does not show acute ST segment changes. However her troponin is modestly elevated and she has marked elevation proBNP Cardiology has been consulted. EchoWith EF 30-35% which is worsened compared to previous levels Status post Lexiscan with EF 39% negative for ischemia Echo showed possible ruptured false tendon versus thrombus or vegetation. Suspected to be ruptured chordae tendineae. No YEFRI needed (2) Shortness of breath: Code(s): R06.02 - Shortness of breath Status: Acute Assessment and Plan: This has been an ongoing issue for the last week or so. I am not certain she has an active pulmonary infection though imaging suggests small bilateral pleural effusions with patchy infiltrates and/or atelectasis in the lower lung zones. With an elevated troponin and proBNP in addition to decreased activity recently, pulmonary embolism certainly is a consideration. She has a contrast allergy and at this time she was started on empiric Lovenox 1 milligram/kilogram b.i.d. Venous duplex positive for DVT of peroneal veins V/Q scan indeterminate Currently on Lovenox will switch to eliquis or xarelto depending on the coverage (3) Heart failure with reduced ejection fraction: Code(s): I50.20 - Unspecified systolic (congestive) heart failure Status: Acute Assessment and Plan: Most recent EF was measured at 45%. She does appear clinically compensated however her labs (elevated troponin, proBNP, and LFTs) suggests that she may have some congestion. She was given a dose of Lasix 40 milligrams IV x1 in the ER Continue diuresis as tolerated No shortness of breaths likely related to her PE also on farxiga added;losartan, metoprolol (4) Transaminitis: Code(s): R74.01 - Elevation of levels of liver transaminase levels Status: Acute Assessment and Plan: Etiology is not entirely clear. Her abdominal exam is benign. She gives no history to suggest acute hepatitis though will check hepatitis panel. Right upper quadrant ultrasound has been ordered for a.m.. With markedly elevated proBNP, she may have hepatic congestion from heart failure though she does not look acutely volume overloaded. (5) Macrocytic anemia: Code(s): D53.9 - Nutritional anemia, unspecified Status: Acute Assessment and Plan: Check iron studies as well as B12 and folates. (6) Thrombocytopenia: Code(s): D69.6 - Thrombocytopenia, unspecified Status: Acute Assessment and Plan: She has a mild thrombocytopenia which has been noted on labs intermittently over the years. Monitor for now. (7) Elevated lactic acid level: Code(s): R79.89 - Other specified abnormal findings of blood chemistry Status: Acute Assessment and Plan: No evidence to suggest acute underlying infection. On review of previous labs her lactic acid level is always a bit elevated. May very well be related to metformin which has been placed on hold. Blood cultures have been obtained. Plan hypokalemia replace and recheck monitor Type 2 diabetes A1c 6.8. On metformin at home which has been stopped. Continue SSI Subjective Date/time seen: 03/24/22 10:03 Interval history: HPI: This is an 86-year-old female with? history of heart failure with reduced ejection fraction (09/2021 TTE LVEF 45%, grade 1 diastolic dysfunction),? 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
[2022-03-24 10:47] LABS: Glucose Point of Care 152 mg/dl (65-105)
--- NOTE | 2022-03-24 11:12 | PM.PNCARD ---
Progress Note: A&P Assessment and Plan (1) Acute on chronic combined systolic and diastolic CHF (congestive heart failure): Code(s): I50.43 - Acute on chronic combined systolic (congestive) and diastolic (congestive) heart failure Status: Acute Assessment and Plan: Patient has a history of CHF which has been stable for a long time but has been admitted now with acute on chronic systolic and diastolic CHF. No obvious precipitating factors. Improved. Lexiscan excluded a significant ischemic component. Echo shows worsening of left ventricular function, EF 30-35% by echo and 39% by Lexiscan Shift to p.o. furosemide today Daily BMP Tolerating the addition of Metoprolol 12.5 mg BID Started on low-dose losartan 25 mg daily. Adding Farxiga/Jardiance, hopefully affordable. (2) Elevated troponin: Code(s): R77.8 - Other specified abnormalities of plasma proteins Status: Acute Assessment and Plan: No obvious chest discomfort or EKG changes to suggest an ischemic etiology. No known coronary disease. Repeat EKG showed NSR with APCs, nonspecific ST changes on my personal review ( no a fib on Tele) Lexiscan negative for ischemia Elevated troponins appear to be secondary to heart failure (3) History of mitral valve repair: Code(s): Z98.890 - Other specified postprocedural states Status: Acute Assessment and Plan: History mitral valve repair, with mild to moderate mitral regurgitation on echo done September 2021. Stable mitral valve repair (4) Thrombocytopenia: Code(s): D69.6 - Thrombocytopenia, unspecified Status: Acute Assessment and Plan: Mild thrombocytopenia noted. (5) Mass of left cardiac ventricle: Code(s): I51.89 - Other ill-defined heart diseases Status: Acute Assessment and Plan: Echo showed possible ruptured false tendon versus thrombus or vegetation. Discussed echo with Dr. Asencio, thinks ruptured chordae. No YEFRI indicated for further workup given no suspicion for endocarditis. (6) Cardiomyopathy: Code(s): I42.9 - Cardiomyopathy, unspecified Status: Acute Assessment and Plan: EF 30-39% (7) Acute hypokalemia: Code(s): E87.6 - Hypokalemia Status: Acute Assessment and Plan: Supplement (8) DVT (deep venous thrombosis): Code(s): I82.409 - Acute embolism and thrombosis of unspecified deep veins of unspecified lower extremity Status: Acute Assessment and Plan: Has a DVT of the peroneal veins, now on Lovenox. (9) Elevated LFTs: Code(s): R79.89 - Other specified abnormal findings of blood chemistry Status: Acute Assessment and Plan: Elevated LFTs, with unusually high LDH. Abnormal CXR. May need further evaluation. Some may be secondary to acute CHF. Improving Subjective Date/time seen: 03/24/22 11:12 Cardiology follow up for CHF Interval history: Feels about the same today. Still complaining of feeling weak. No chest pain, palpitations, shortness of breath. Still on 3L O2. Review of Systems Constitutional: Constitutional: Reports fatigue, Denies fever(s), Reports lethargy and Reports malaise Cardiovascular: Cardiovascular: Denies chest pain, Denies pedal edema, Reports leg edema, Denies lightheadedness, Denies palpitations and Denies dyspnea Respiratory: Respiratory: Denies chest congestion and Denies dyspnea Gastrointestinal: Gastrointestinal: Denies abdominal pain and Denies hematochezia Musculoskeletal: Musculoskeletal: Reports no additional musculoskeletal complaints Integumentary/Breasts: Skin/Breast: Reports system reviewed and no additional complaints, except as docu Neurologic: Reports system reviewed and no additional complaints, except as documented, Denies behavioral changes and Denies confusion Psychiatric: Psychiatric: Denies behavioral changes and Denies confusion Endocrine: Endocrine: Reports fatig
[2022-03-24 11:59] LABS: Glucose Point of Care 244 mg/dl (65-105)
[2022-03-24] MEDS: INSULIN ASPART (*BKC) 100 UNITS/ML SUB-Q ×3 (12:52→21:02)
[2022-03-24] MEDS: FUROSEMIDE 20 MG TABLET 60 MG PO (16:24)
[2022-03-24] MEDS: ACETAMINOPHEN 325 MG TABLET 650 MG PO (16:24)
[2022-03-24 17:24] LABS: Glucose Point of Care 214 mg/dl (65-105)
[2022-03-24 20:12] LABS: Glucose Point of Care 315 mg/dl (65-105)
[2022-03-25] VITALS (13 sets, daily range): BP systolic 70–93; BP diastolic 40–63; PULSE 85–103; RESP 16–20; TEMP 36.3–36.8; O2SAT 98–100
[2022-03-25 05:02] LABS: Basophils Percent Auto 0.3 % (0.2-1.2); Hematocrit 30.9 % (37.0-47.0); Hemoglobin 9.9 g/dL (12.0-15.0); Immature Granulocyte Absolute 0.42 K/mm3 (0.00-0.031); Immature Granulocyte Percent A 4.3 % (0-0.5); Lymphocytes Absolute Auto 1.98 K/mm3 (0.9-3.2); Lymphocytes Percent Auto 20.2 % (18.3-44.2); Mean Corpuscular Hemoglobin 33.7 pg (26-34); Mean Corpuscular Volume 105.1 fl (80-100); Mean Platelet Volume 10.4 fl (7.4-10.4); Monocytes Absolute Auto 0.5 K/mm3 (0.1-0.6); Neutrophils Absolute Auto 6.9 K/mm3 (1.3-6.7); Neutrophils Percent Auto 70.2 % (45.5-73.1); Nucleated Red Blood Cells Absolute Auto 0.1 K/mm3 (0.0-0.012); Nucleated Red Blood Cells Perc 1.3 % (0.0-0.2); Platelet Count Result 130 k/mm3 (150-375); Red Blood Count 2.94 M/mm3 (4.2-5.4); Red Cell Distribution Width 20.5 % (11.5-14.5); White Blood Count 9.8 K/mm3 (4.5-10.0)
[2022-03-25 05:23] LABS: Anisocytosis 2+ (NORMAL); Burr Cells 2+ (NORMAL); Macrocytosis 1+ (NORMAL); Platelet Estimate Adequate (Adequate); Schistocytes None Seen (NORMAL)
[2022-03-25 05:38] LABS: Alanine Aminotransferase 94 U/L (6-35); Albumin Level 2.9 g/dL (3.5-5.1); Alkaline Phosphatase 88 U/L (38-126); Anion Gap 6 mmol/L (8-16); Aspartate Amino Transferase 27 U/L (14-36); Blood Urea Nitrogen 44 mg/dL (7-17); Calcium 7.3 mg/dL (8.4-10.2); Carbon Dioxide 33 mmol/L (22-30); Chloride 100 mmol/L (98-107); Estimated CRCL calculation 38 ml/min; Estimated Glomerular Filt Rate > 60; Glucose 141 mg/dL (65-110); Magnesium 1.5 mg/dL (1.6-2.3); Potassium 3.3 mmol/L (3.4-5.0); Sodium 139 mmol/L (137-145)
[2022-03-25] MEDS: LEVOTHYROXINE SODIUM 25 MCG TABLET PO (06:34)
[2022-03-25 07:43] LABS: Glucose Point of Care 159 mg/dl (65-105)
[2022-03-25] MEDS: POTASSIUM CHLORIDE 20 MEQ TABLET 40 MEQ PO (08:40)
[2022-03-25] MEDS: CITALOPRAM HYDROBROMIDE 10 MG TABLET PO (08:40)
[2022-03-25] MEDS: SODIUM CHLORIDE 0.9% IV 250 ML 100 ML IV CONT ×2 (08:40→16:05)
[2022-03-25] MEDS: EMPAGLIFLOZIN 10 MG TABLET PO (08:40)
[2022-03-25] MEDS: CHOLECALCIFEROL 1,000 UNITS TABLET 1000 UNITS PO (08:40)
[2022-03-25] MEDS: ATORVASTATIN 10 MG TABLET PO (08:40)
[2022-03-25] MEDS: MAGNESIUM SULF 2 GM/WATER 50ML 2 GM/50 ML BAG IVPB (08:40)
[2022-03-25] MEDS: ASPIRIN 81 MG ENTERIC TABLET PO (08:40)
[2022-03-25 11:11] LABS: Glucose Point of Care 308 mg/dl (65-105)
[2022-03-25] MEDS: INSULIN ASPART (*BKC) 100 UNITS/ML SUB-Q ×2 (11:49→16:51)
--- NOTE | 2022-03-25 14:15 | PCPTNOTE ---
The patient treatment was not able to be completed on 03/25/22, due to low blood pressure per RN, 82/55. Will plan to continue treatment per plan of care.
[2022-03-25] MEDS: ACETAMINOPHEN 325 MG TABLET 650 MG PO ×2 (14:20→18:15)
--- NOTE | 2022-03-25 15:10 | PM.IMPN ---
Progress Note: A&P Assessment and Plan (1) Elevated troponin: Code(s): R77.8 - Other specified abnormalities of plasma proteins Status: Acute Assessment and Plan: She is not having any chest pain whatsoever and EKG does not show acute ST segment changes. However her troponin is modestly elevated and she has marked elevation proBNP Cardiology has been consulted. EchoWith EF 30-35% which is worsened compared to previous levels Status post Lexiscan with EF 39% negative for ischemia Echo showed possible ruptured false tendon versus thrombus or vegetation. Suspected to be ruptured chordae tendineae. No YEFRI needed (2) Shortness of breath: Code(s): R06.02 - Shortness of breath Status: Acute Assessment and Plan: This has been an ongoing issue for the last week or so. I am not certain she has an active pulmonary infection though imaging suggests small bilateral pleural effusions with patchy infiltrates and/or atelectasis in the lower lung zones. With an elevated troponin and proBNP in addition to decreased activity recently, pulmonary embolism certainly is a consideration. She has a contrast allergy and at this time she was started on empiric Lovenox 1 milligram/kilogram b.i.d. Venous duplex positive for DVT of peroneal veins V/Q scan indeterminate Currently on Lovenox However now complicated with abdominal wall. Will get CT abdomen to certain the size hematoma. H&H slightly dropped today 9.9 from 10.9 yesterday. Will recheck it again today continues to lower. She is hypotensive which might be is related to this. Hold blood pressure medication today. Will also hold anticoagulation. Discussed risk and benefit with patient. Hoping to have this stabilized with just holding the Lovenox shot for a dose or 2 and able to restart anticoagulation after that with Wilman Discussed this with daughter was at bedside. Agreeable with the plan If anticoagulation need to be held due to ongoing bleed and/or drop in H&H she will benefit to get IVC filter placement which is not done in this hospital and would reach out to higher level facility to accomplish this. (3) Heart failure with reduced ejection fraction: Code(s): I50.20 - Unspecified systolic (congestive) heart failure Status: Acute Assessment and Plan: Most recent EF was measured at 45%. She does appear clinically compensated however her labs (elevated troponin, proBNP, and LFTs) suggests that she may have some congestion. She was given a dose of Lasix 40 milligrams IV x1 in the ER Continue diuresis as tolerated No shortness of breaths likely related to her PE also on farxiga added;losartan, metoprolol Hold losartan metoprolol Lasix and spironolactone due to hypotension today (4) Transaminitis: Code(s): R74.01 - Elevation of levels of liver transaminase levels Status: Acute Assessment and Plan: Etiology is not entirely clear. Her abdominal exam is benign. She gives no history to suggest acute hepatitis though will check hepatitis panel. Right upper quadrant ultrasound has been ordered for a.m.. With markedly elevated proBNP, she may have hepatic congestion from heart failure though she does not look acutely volume overloaded. (5) Macrocytic anemia: Code(s): D53.9 - Nutritional anemia, unspecified Status: Acute Assessment and Plan: Check iron studies as well as B12 and folates. (6) Thrombocytopenia: Code(s): D69.6 - Thrombocytopenia, unspecified Status: Acute Assessment and Plan: She has a mild thrombocytopenia which has been noted on labs intermittently over the years. Monitor for now. (7) Elevated lactic acid level: Code(s): R79.89 - Other specified abnormal findings of blood chemistry Status: Acute Assessment and Plan: No evidence to suggest acute underlying infection. On review of previous labs her lactic acid level is always a bit elevated. May very we
[2022-03-25 15:30] LABS: Hematocrit 28.2 % (37.0-47.0); Hemoglobin 9.1 g/dL (12.0-15.0)
--- NOTE | 2022-03-25 15:48 | PM.PNCARD ---
Progress Note: A&P Assessment and Plan (1) Acute on chronic combined systolic and diastolic CHF (congestive heart failure): Code(s): I50.43 - Acute on chronic combined systolic (congestive) and diastolic (congestive) heart failure Status: Acute Assessment and Plan: Patient has a history of CHF which has been stable for a long time but has been admitted now with acute on chronic systolic and diastolic CHF. Diuresed and improved. No on oral Lasix, but held due to dehydration. Lexiscan excluded a significant ischemic component. Echo shows worsening of left ventricular function, EF 30-35% by echo and 39% by Lexiscan Daily BMP Added Metoprolol 12.5 mg BID, but BP running low today; will hold. Added losartan 25 mg daily, but BP running low today; will hold. Added Farxiga/Jardiance, hopefully affordable . (2) Elevated troponin: Code(s): R77.8 - Other specified abnormalities of plasma proteins Status: Acute Assessment and Plan: Elevated troponin. No obvious chest discomfort or EKG changes to suggest an ischemic etiology. No known coronary disease. Lexiscan negative for ischemia Elevated troponins appear to be secondary to heart failure (3) Hypotension: Code(s): I95.9 - Hypotension, unspecified Status: Acute Assessment and Plan: Blood pressure lower today and patient does not feel well. Probably due to over-diuresis and anemia Lasix held, getting some IV fluids Lovenox held, getting a CT of the abdomen today and a CBC tomorrow (4) History of mitral valve repair: Code(s): Z98.890 - Other specified postprocedural states Status: Acute Assessment and Plan: History mitral valve repair, with mild to moderate mitral regurgitation on echo done September 2021. Stable mitral valve repair (5) Mass of left cardiac ventricle: Code(s): I51.89 - Other ill-defined heart diseases Status: Acute Assessment and Plan: Echo showed possible ruptured false tendon versus thrombus or vegetation. Discussed echo with Dr. Asencio, thinks ruptured chordae. No YEFRI indicated for further workup given no suspicion for endocarditis. (6) Cardiomyopathy: Code(s): I42.9 - Cardiomyopathy, unspecified Status: Acute Assessment and Plan: EF 30-39% (7) Acute hypokalemia: Code(s): E87.6 - Hypokalemia Status: Acute Assessment and Plan: Supplement (8) Thrombocytopenia: Code(s): D69.6 - Thrombocytopenia, unspecified Status: Acute Assessment and Plan: Mild thrombocytopenia noted. (9) DVT (deep venous thrombosis): Code(s): I82.409 - Acute embolism and thrombosis of unspecified deep veins of unspecified lower extremity Status: Acute Assessment and Plan: Has a DVT of the peroneal veins Lovenox held due to drop in H&H and abdominal wall hematoma/ecchymosis CT pending (10) Elevated LFTs: Code(s): R79.89 - Other specified abnormal findings of blood chemistry Status: Acute Assessment and Plan: Elevated LFTs, with unusually high LDH. Abnormal CXR. May need further evaluation. Some may be secondary to acute CHF. Improving Subjective Date/time seen: 03/25/22 15:48 Interval history: Follow-up for acute systolic and diastolic heart failure. History of mitral valve replacement. 03/24: Feels about the same today. Still complaining of feeling weak. No chest pain, palpitations, shortness of breath. Still on 3L O2. Switch to p.o. Lasix. Date of service 03/25/2022: Daughters at bedside. Feeling weak today. Having some pain from some blisters on buttocks. BP running low today, in the 90s and sometimes less. BUN up to 44. Lasix now on hold. Hct drifting down. Has abdominal wall hematoma, Lovenox discontinued, CT scan pending. Review of Systems Constitutional: Constitutional: Reports fatigue, Reports lethargy and Reports weakness Car
[2022-03-25 17:05] LABS: Glucose Point of Care 411 mg/dl (65-105)
[2022-03-25] MEDS: MIDODRINE HCL 2.5 MG TABLET 5 MG PO (18:02)
[2022-03-25 20:11] LABS: Glucose Point of Care 231 mg/dl (65-105)
--- NOTE | 2022-03-25 22:46 | PC.NURSE ---
Notified by Lauren Hoskins RN that patient has low blood pressures. Pt is going to CT to evaluate for potential bleeding hematoma. BP meds have been held throughout the day and patient has received small volume boluses without much improvement. BP at 2031 79/47 left and 81/51 in right arm. Cheetah performed and patient found to be -(negative)10% responsive. Spoke with patient who at this time is tired but alert and oriented and she would want a central line if needed. She is a full code and wants anything necessary done. BP after cheetah at 2100 93/57. Buffy ACEVEDO notified of cheetah response and blood pressures. Buffy states she will look at CT. Will continue to monitor.
[2022-03-25 23:04] LABS: Hematocrit 27.8 % (37.0-47.0); Hemoglobin 9.1 g/dL (12.0-15.0)
[2022-03-26] VITALS (14 sets, daily range): BP systolic 86–113; BP diastolic 46–90; PULSE 58–115; RESP 12–20; TEMP 36.4–36.7; O2SAT 95–100
[2022-03-26 06:58] LABS: Basophils Percent Auto 0.2 % (0.2-1.2); Hematocrit 28.2 % (37.0-47.0); Hemoglobin 9.3 g/dL (12.0-15.0); Immature Granulocyte Percent A 3.1 % (0-0.5); Lymphocytes Absolute Auto 2.27 K/mm3 (0.9-3.2); Lymphocytes Percent Auto 23.2 % (18.3-44.2); Mean Corpuscular Hemoglobin 34.2 pg (26-34); Mean Corpuscular Volume 103.7 fl (80-100); Mean Platelet Volume 10.1 fl (7.4-10.4); Monocytes Absolute Auto 0.4 K/mm3 (0.1-0.6); Monocytes Percent Auto 4.4 % (2.6-8.5); Neutrophils Absolute Auto 6.8 K/mm3 (1.3-6.7); Neutrophils Percent Auto 69.1 % (45.5-73.1); Nucleated Red Blood Cells Absolute Auto 0.1 K/mm3 (0.0-0.012); Platelet Count Result 113 k/mm3 (150-375); Red Blood Count 2.72 M/mm3 (4.2-5.4); Red Cell Distribution Width 20.5 % (11.5-14.5); White Blood Count 9.8 K/mm3 (4.5-10.0)
[2022-03-26 07:19] LABS: Alanine Aminotransferase 83 U/L (6-35); Albumin Level 2.9 g/dL (3.5-5.1); Alkaline Phosphatase 88 U/L (38-126); Anion Gap 5 mmol/L (8-16); Aspartate Amino Transferase 25 U/L (14-36); Blood Urea Nitrogen 47 mg/dL (7-17); Calcium 7.4 mg/dL (8.4-10.2); Carbon Dioxide 31 mmol/L (22-30); Chloride 101 mmol/L (98-107); Estimated CRCL calculation 43 ml/min; Estimated Glomerular Filt Rate > 60; Glucose 122 mg/dL (65-110); Magnesium 2.2 mg/dL (1.6-2.3); Potassium 3.9 mmol/L (3.4-5.0); Sodium 137 mmol/L (137-145)
[2022-03-26 07:43] LABS: Glucose Point of Care 141 mg/dl (65-105)
[2022-03-26] MEDS: CHOLECALCIFEROL 1,000 UNITS TABLET 1000 UNITS PO (09:05)
[2022-03-26] MEDS: ATORVASTATIN 10 MG TABLET PO (09:05)
[2022-03-26] MEDS: EMPAGLIFLOZIN 10 MG TABLET PO (09:06)
[2022-03-26] MEDS: MIDODRINE HCL 2.5 MG TABLET 5 MG PO ×3 (09:06→17:21)
[2022-03-26] MEDS: ASPIRIN 81 MG ENTERIC TABLET PO (09:06)
[2022-03-26] MEDS: CITALOPRAM HYDROBROMIDE 10 MG TABLET PO (09:06)
--- NOTE | 2022-03-26 09:12 | PCOTNOTE ---
Per RN, pt is not appropriate for OT tx today due to continued low blood pressure. Will continue per poc duration/frequency tomorrow.
--- NOTE | 2022-03-26 09:23 | PCPTNOTE ---
The patient treatment was not able to be completed on 03/26/22 due to low blood pressure per RN. Will plan to continue treatment per plan of care.
--- NOTE | 2022-03-26 10:10 | P.PNCA_ITS ---
Progress Note: A&P Assessment and Plan (1) Acute on chronic combined systolic and diastolic CHF (congestive heart failure): Code(s): I50.43 - Acute on chronic combined systolic (congestive) and diastolic (congestive) heart failure Status: Acute Assessment and Plan: Patient has a history of CHF which has been stable for a long time but has been admitted now with acute on chronic systolic and diastolic CHF. * Diuresed and improved. Oral Lasix, but held due to dehydration. * Lexiscan excluded a significant ischemic component. * Echo shows worsening of left ventricular function, EF 30-35% by echo and 39% by Lexiscan * Daily BMP; hypokalemia improved. * Added Metoprolol 12.5 mg BID, but BP running low today; held. * Added losartan 25 mg daily, but BP running low today; held. * Added Farxiga/Jardiance, hopefully affordable . (2) Hypotension: Code(s): I95.9 - Hypotension, unspecified Status: Acute Assessment and Plan: Low blood pressure, w/ slight improvement * Probably due to over-diuresis and anemia * Lasix, metoprolol, losartan held * Rec'd IV fluids 03/25/2022 * Started on midodrine 03/25/2022 * Creatinine stable (3) Hematoma: Code(s): T14.8XXA - Other injury of unspecified body region, initial encounter Status: Acute Assessment and Plan: Hematoma of abdominal wall noted. * H&H stable * Eliquis DC'd * CT showed no internal bleeding (4) Cardiomyopathy: Code(s): I42.9 - Cardiomyopathy, unspecified Status: Acute Assessment and Plan: EF 30-39% (5) DVT (deep venous thrombosis): Code(s): I82.409 - Acute embolism and thrombosis of unspecified deep veins of unspecified lower extremity Status: Acute Assessment and Plan: Has a DVT of the peroneal veins * Eliquis held due to drop in H&H and abdominal wall hematoma/ecchymosis * Low risk for PE * Consider re-evaluation at a later date * Mobilize once BP better (6) History of mitral valve repair: Code(s): Z98.890 - Other specified postprocedural states Status: Acute Assessment and Plan: History mitral valve repair, with mild to moderate mitral regurgitation on echo done September 2021. * Stable mitral valve repair (7) Elevated troponin: Code(s): R77.8 - Other specified abnormalities of plasma proteins Status: Acute Assessment and Plan: Elevated troponin. No obvious chest discomfort or EKG changes to suggest an ischemic etiology. No known coronary disease. * Lexiscan negative for ischemia * Elevated troponins appear to be secondary to heart failure (8) Mass of left cardiac ventricle: Code(s): I51.89 - Other ill-defined heart diseases Status: Acute Assessment and Plan: Echo showed possible ruptured false tendon versus thrombus or vegetation. * Looks like a ruptured chordae. No YEFRI indicated for further workup given no suspicion for endocarditis. (9) Elevated LFTs: Code(s): R79.89 - Other specified abnormal findings of blood chemistry Status: Acute Assessment and Plan: Elevated LFTs, with unusually high LDH. Abnormal CXR. May need further evaluation. * Some may be secondary to acute CHF. * Improving Subjective Date/time seen: 03/26/22 10:10 Interval history: Follow-up for acute systolic heart failure. History of mitral valve replacement. 03/24/2022: Feels about the same today. St
--- NOTE | 2022-03-26 10:10 | PM.PNCARD ---
Progress Note: A&P Assessment and Plan (1) Acute on chronic combined systolic and diastolic CHF (congestive heart failure): Code(s): I50.43 - Acute on chronic combined systolic (congestive) and diastolic (congestive) heart failure Status: Acute Assessment and Plan: Patient has a history of CHF which has been stable for a long time but has been admitted now with acute on chronic systolic and diastolic CHF. Diuresed and improved. Oral Lasix, but held due to dehydration. Lexiscan excluded a significant ischemic component. Echo shows worsening of left ventricular function, EF 30-35% by echo and 39% by Lexiscan Daily BMP; hypokalemia improved. Added Metoprolol 12.5 mg BID, but BP running low today; held. Added losartan 25 mg daily, but BP running low today; held. Added Farxiga/Jardiance, hopefully affordable . (2) Hypotension: Code(s): I95.9 - Hypotension, unspecified Status: Acute Assessment and Plan: Low blood pressure, w/ slight improvement Probably due to over-diuresis and anemia Lasix, metoprolol, losartan held Rec'd IV fluids 03/25/2022 Started on midodrine 03/25/2022 Creatinine stable (3) Hematoma: Code(s): T14.8XXA - Other injury of unspecified body region, initial encounter Status: Acute Assessment and Plan: Hematoma of abdominal wall noted. H&H stable Eliquis DC'd CT showed no internal bleeding (4) Cardiomyopathy: Code(s): I42.9 - Cardiomyopathy, unspecified Status: Acute Assessment and Plan: EF 30-39% (5) DVT (deep venous thrombosis): Code(s): I82.409 - Acute embolism and thrombosis of unspecified deep veins of unspecified lower extremity Status: Acute Assessment and Plan: Has a DVT of the peroneal veins Eliquis held due to drop in H&H and abdominal wall hematoma/ecchymosis Low risk for PE Consider re-evaluation at a later date Mobilize once BP better (6) History of mitral valve repair: Code(s): Z98.890 - Other specified postprocedural states Status: Acute Assessment and Plan: History mitral valve repair, with mild to moderate mitral regurgitation on echo done September 2021. Stable mitral valve repair (7) Elevated troponin: Code(s): R77.8 - Other specified abnormalities of plasma proteins Status: Acute Assessment and Plan: Elevated troponin. No obvious chest discomfort or EKG changes to suggest an ischemic etiology. No known coronary disease. Lexiscan negative for ischemia Elevated troponins appear to be secondary to heart failure (8) Mass of left cardiac ventricle: Code(s): I51.89 - Other ill-defined heart diseases Status: Acute Assessment and Plan: Echo showed possible ruptured false tendon versus thrombus or vegetation. Looks like a ruptured chordae. No YEFRI indicated for further workup given no suspicion for endocarditis. (9) Elevated LFTs: Code(s): R79.89 - Other specified abnormal findings of blood chemistry Status: Acute Assessment and Plan: Elevated LFTs, with unusually high LDH. Abnormal CXR. May need further evaluation. Some may be secondary to acute CHF. Improving Subjective Date/time seen: 03/26/22 10:10 Interval history: Follow-up for acute systolic heart failure. History of mitral valve replacement. 03/24/2022: Feels about the same today. Still complaining of feeling weak. No chest pain, palpitations, shortness of breath. Still on 3L O2. Switch to p.o. Lasix. 03/25/2022: Daughters at bedside. Feeling weak today. Having some pain from some blisters on buttocks. BP running low today, in the 90s and sometimes less. BUN up to 44. Lasix now on hold. Hct drifting down. Has abdominal wall hematoma, Lovenox discontinued, CT scan pending. Date of service 03/26/2022: Feels a little better, ate a good breakfast. Denies SOB or pain. Not out of bed due to low BP. Daughter
[2022-03-26] MEDS: PANTOPRAZOLE SODIUM IV 40 MG VIAL IV PUSH ×2 (10:54→20:49)
[2022-03-26 11:14] LABS: Glucose Point of Care 200 mg/dl (65-105)
[2022-03-26] MEDS: ACETAMINOPHEN 325 MG TABLET 650 MG PO ×2 (13:16→17:21)
--- NOTE | 2022-03-26 16:29 | PM.IMPN ---
Progress Note: A&P Assessment and Plan (1) Elevated troponin: Code(s): R77.8 - Other specified abnormalities of plasma proteins Status: Acute Assessment and Plan: She is not having any chest pain whatsoever and EKG does not show acute ST segment changes. However her troponin is modestly elevated and she has marked elevation proBNP Cardiology has been consulted. EchoWith EF 30-35% which is worsened compared to previous levels Status post Lexiscan with EF 39% negative for ischemia Echo showed possible ruptured false tendon versus thrombus or vegetation. Suspected to be ruptured chordae tendineae. No YEFRI needed (2) Shortness of breath: Code(s): R06.02 - Shortness of breath Status: Acute Assessment and Plan: This has been an ongoing issue for the last week or so. I am not certain she has an active pulmonary infection though imaging suggests small bilateral pleural effusions with patchy infiltrates and/or atelectasis in the lower lung zones. With an elevated troponin and proBNP in addition to decreased activity recently, pulmonary embolism certainly is a consideration. She has a contrast allergy and at this time she was started on empiric Lovenox 1 milligram/kilogram b.i.d. Venous duplex positive for DVT of peroneal veins V/Q scan indeterminate Currently on Lovenox However now complicated with abdominal wall Hematoma.CT abdomen with subcutaneous fat stranding in the anterior abdominal wall and left is hematoma. H&H slightly dropped To 9.9 from 10.9 on 03/24. Monitor H&H has remained stable now. Mildly hypotensive throughout the day yesterday added on midodrine. Anticoagulation on hold for now. With stable may start prophylactic does until further stabilization Will get ultrasound duplex repeated is see the status of peroneal vein DVT which is below the knee DVT. V/Q scan was indeterminate and not high probability for PE. If DVT still present and continues to drop H&H forbiding restart of anticoagulation consideration of IVC filter will be made. Will give her another day off anticoagulation for H&H to stabilize (3) Heart failure with reduced ejection fraction: Code(s): I50.20 - Unspecified systolic (congestive) heart failure Status: Acute Assessment and Plan: Most recent EF was measured at 45%. She does appear clinically compensated however her labs (elevated troponin, proBNP, and LFTs) suggests that she may have some congestion. She was given a dose of Lasix 40 milligrams IV x1 in the ER Continue diuresis as tolerated No shortness of breaths likely related to her PE also on farxiga added;losartan, metoprolol Hold losartan metoprolol Lasix and spironolactone due to hypotension today (4) Transaminitis: Code(s): R74.01 - Elevation of levels of liver transaminase levels Status: Acute Assessment and Plan: Etiology is not entirely clear. Her abdominal exam is benign. She gives no history to suggest acute hepatitis though will check hepatitis panel. Right upper quadrant ultrasound has been ordered for a.m.. With markedly elevated proBNP, she may have hepatic congestion from heart failure though she does not look acutely volume overloaded. (5) Macrocytic anemia: Code(s): D53.9 - Nutritional anemia, unspecified Status: Acute Assessment and Plan: Check iron studies as well as B12 and folates. (6) Thrombocytopenia: Code(s): D69.6 - Thrombocytopenia, unspecified Status: Acute Assessment and Plan: She has a mild thrombocytopenia which has been noted on labs intermittently over the years. Monitor for now. (7) Elevated lactic acid level: Code(s): R79.89 - Other specified abnormal findings of blood chemistry Status: Acute Assessment and Plan: No evidence to suggest acute underlying infection. On review of previous labs her lactic acid level is always a bit elevated. May very well be related to metform
[2022-03-26 16:57] LABS: Glucose Point of Care 187 mg/dl (65-105)
[2022-03-26 20:09] LABS: Glucose Point of Care 203 mg/dl (65-105)
[2022-03-27] VITALS (13 sets, daily range): BP systolic 82–117; BP diastolic 51–78; PULSE 81–172; RESP 18–22; TEMP 36–37; O2SAT 94–100; BMI 25.7
[2022-03-27 04:38] LABS: Basophils Percent Auto 0.2 % (0.2-1.2); Hematocrit 27.2 % (37.0-47.0); Hemoglobin 8.9 g/dL (12.0-15.0); Immature Granulocyte Absolute 0.26 K/mm3 (0.00-0.031); Immature Granulocyte Percent A 2.9 % (0-0.5); Mean Corpuscular HGB Conc 32.7 g/dl (32-36); Mean Corpuscular Hemoglobin 34.1 pg (26-34); Mean Corpuscular Volume 104.2 fl (80-100); Mean Platelet Volume 9.6 fl (7.4-10.4); Monocytes Absolute Auto 0.4 K/mm3 (0.1-0.6); Monocytes Percent Auto 4.4 % (2.6-8.5); Neutrophils Absolute Auto 6.4 K/mm3 (1.3-6.7); Neutrophils Percent Auto 70.5 % (45.5-73.1); Nucleated Red Blood Cells Absolute Auto 0.1 K/mm3 (0.0-0.012); Nucleated Red Blood Cells Perc 0.8 % (0.0-0.2); Platelet Count Result 114 k/mm3 (150-375); Red Blood Count 2.61 M/mm3 (4.2-5.4); Red Cell Distribution Width 20.1 % (11.5-14.5); White Blood Count 9.1 K/mm3 (4.5-10.0)
[2022-03-27 04:51] LABS: Alanine Aminotransferase 73 U/L (6-35); Albumin Level 2.8 g/dL (3.5-5.1); Alkaline Phosphatase 92 U/L (38-126); Anion Gap 5 mmol/L (8-16); Aspartate Amino Transferase 26 U/L (14-36); Bilirubin,Total 1.1 mg/dL (0.2-1.3); Blood Urea Nitrogen 47 mg/dL (7-17); Calcium 7.5 mg/dL (8.4-10.2); Carbon Dioxide 30 mmol/L (22-30); Chloride 103 mmol/L (98-107); Estimated CRCL calculation 38 ml/min; Estimated Glomerular Filt Rate > 60; Glucose 134 mg/dL (65-110); Potassium 3.6 mmol/L (3.4-5.0); Sodium 138 mmol/L (137-145)
[2022-03-27] MEDS: LEVOTHYROXINE SODIUM 25 MCG TABLET PO (06:23)
[2022-03-27 08:15] LABS: Glucose Point of Care 133 mg/dl (65-105)
[2022-03-27 08:58] LABS: Potassium 2.5 mmol/L (3.4-5.0)
[2022-03-27] MEDS: MIDODRINE HCL 2.5 MG TABLET 5 MG PO ×4 (09:16→23:22)
[2022-03-27] MEDS: CHOLECALCIFEROL 1,000 UNITS TABLET 1000 UNITS PO (09:16)
[2022-03-27] MEDS: EMPAGLIFLOZIN 10 MG TABLET PO (09:16)
[2022-03-27] MEDS: ATORVASTATIN 10 MG TABLET PO (09:17)
[2022-03-27] MEDS: CITALOPRAM HYDROBROMIDE 10 MG TABLET PO (09:17)
--- NOTE | 2022-03-27 09:28 | PM.IMPN ---
Progress Note: A&P Assessment and Plan (1) Elevated troponin: Code(s): R77.8 - Other specified abnormalities of plasma proteins Status: Acute Assessment and Plan: She is not having any chest pain whatsoever and EKG does not show acute ST segment changes. However her troponin is modestly elevated and she has marked elevation proBNP Cardiology has been consulted. EchoWith EF 30-35% which is worsened compared to previous levels Status post Lexiscan with EF 39% negative for ischemia Echo showed possible ruptured false tendon versus thrombus or vegetation. Suspected to be ruptured chordae tendineae. No YEFRI needed (2) Shortness of breath: Code(s): R06.02 - Shortness of breath Status: Acute Assessment and Plan: This has been an ongoing issue for the last week or so. I am not certain she has an active pulmonary infection though imaging suggests small bilateral pleural effusions with patchy infiltrates and/or atelectasis in the lower lung zones. With an elevated troponin and proBNP in addition to decreased activity recently, pulmonary embolism certainly is a consideration. She has a contrast allergy and at this time she was started on empiric Lovenox 1 milligram/kilogram b.i.d. Venous duplex positive for DVT of peroneal veins V/Q scan indeterminate Currently on Lovenox However now complicated with abdominal wall Hematoma.CT abdomen with subcutaneous fat stranding in the anterior abdominal wall and left is hematoma. H&H slightly dropped To 9.9 from 10.9 on 03/24. Monitor H&H has remained stable now. Mildly hypotensive throughout the day yesterday added on midodrine. Anticoagulation on hold for now. With stable may start prophylactic does until further stabilization Will get ultrasound duplex repeated is see the status of peroneal vein DVT which is below the knee DVT. V/Q scan was indeterminate and not high probability for PE. If DVT still present and continues to drop H&H forbiding restart of anticoagulation consideration of IVC filter will be made. Will give her another day off anticoagulation for H&H to stabilize 03/27: H&H is slight drop today. Overall hemodynamic says has improved. Anticoagulation still on hold. Repeat venous duplex with persistent peroneal vein DVT which is a distal DVT. There is a V/Q scan which is indeterminate the possibility off PE remains. With continued drop in H&H persisted finding of peroneal vein DVT will discuss this with general surgery if she will benefit from IVC filter placement. Other thought would be to start DVT prophylaxis dosing of apixaban oral until stable enough to take full-dose. (3) Heart failure with reduced ejection fraction: Code(s): I50.20 - Unspecified systolic (congestive) heart failure Status: Acute Assessment and Plan: Most recent EF was measured at 45%. She does appear clinically compensated however her labs (elevated troponin, proBNP, and LFTs) suggests that she may have some congestion. She was given a dose of Lasix 40 milligrams IV x1 in the ER Continue diuresis as tolerated No shortness of breaths likely related to her PE also on farxiga added;losartan, metoprolol Continue to hold losartan metoprolol Lasix and spironolactone due to hypotension (4) Transaminitis: Code(s): R74.01 - Elevation of levels of liver transaminase levels Status: Acute Assessment and Plan: Etiology is not entirely clear. Her abdominal exam is benign. She gives no history to suggest acute hepatitis though will check hepatitis panel. Right upper quadrant ultrasound has been ordered for a.m.. With markedly elevated proBNP, she may have hepatic congestion from heart failure though she does not look acutely volume overloaded. (5) Macrocytic anemia: Code(s): D53.9 - Nutritional anemia, unspecified Status: Acute Assessment and Plan: Check iron studies as well as B12 and folates. (6) Thrombocytopenia: Co
--- NOTE | 2022-03-27 10:38 | P.PNCA_ITS ---
Progress Note: A&P Assessment and Plan (1) Acute on chronic combined systolic and diastolic CHF (congestive heart failure): Code(s): I50.43 - Acute on chronic combined systolic (congestive) and diastolic (congestive) heart failure Status: Acute Assessment and Plan: Patient has a history of CHF which has been stable for a long time but has been admitted now with acute on chronic systolic and diastolic CHF. * Diuresed and improved. Oral Lasix, but held due to dehydration. * Lexiscan excluded a significant ischemic component. * Echo shows worsening of left ventricular function, EF 30-35% by echo and 39% by Lexiscan * Daily BMP; hypokalemia improved. * Added Metoprolol 12.5 mg BID, but had some hypotension yesterday, better today. Will restart today. Shift to Toprol XL at d/c. * Losartan also held because of hypotension. Perhaps restart this tomorrow. * Added Farxiga/Jardiance, hopefully affordable (2) Hypotension: Code(s): I95.9 - Hypotension, unspecified Status: Acute Assessment and Plan: Low blood pressure Improved * Probably due to over-diuresis and anemia * Lasix, metoprolol, losartan held * Rec'd IV fluids 03/25/2022 * Started on midodrine 03/25/2022 * Creatinine stable (3) Hematoma: Code(s): T14.8XXA - Other injury of unspecified body region, initial encounter Status: Acute Assessment and Plan: Hematoma of abdominal wall noted. * H&H stable * Eliquis DC'd * CT showed no internal bleeding (4) Cardiomyopathy: Code(s): I42.9 - Cardiomyopathy, unspecified Status: Acute Assessment and Plan: EF 30-39% (5) DVT (deep venous thrombosis): Code(s): I82.409 - Acute embolism and thrombosis of unspecified deep veins of unspecified lower extremity Status: Acute Assessment and Plan: Has a DVT of the peroneal veins * Eliquis held due to drop in H&H and abdominal wall hematoma/ecchymosis * Low risk for PE * Consider re-evaluation at a later date * Mobilize once BP better (6) History of mitral valve repair: Code(s): Z98.890 - Other specified postprocedural states Status: Acute Assessment and Plan: History mitral valve repair, with mild to moderate mitral regurgitation on echo done September 2021. * Stable mitral valve repair (7) Elevated troponin: Code(s): R77.8 - Other specified abnormalities of plasma proteins Status: Acute Assessment and Plan: Elevated troponin. No obvious chest discomfort or EKG changes to suggest an ischemic etiology. No known coronary disease. * Lexiscan negative for ischemia * Elevated troponins appear to be secondary to heart failure (8) Mass of left cardiac ventricle: Code(s): I51.89 - Other ill-defined heart diseases Status: Acute Assessment and Plan: Echo showed possible ruptured false tendon versus thrombus or vegetation. * Looks like a ruptured chordae. No YEFRI indicated for further workup given no suspicion for endocarditis. (9) Elevated LFTs: Code(s): R79.89 - Other specified abnormal findings of blood chemistry Status: Acute Assessment and Plan: Elevated LFTs, with unusually high LDH. Abnormal CXR. May need further evaluation. * Some may be secondary to acute CHF. * Improving Subjective Date/time seen: 03/27/22 10:38 Cardiology follow up for CHF Feels weak today. Was working with PT at the time of my visit and aren
--- NOTE | 2022-03-27 10:38 | PM.PNCARD ---
Progress Note: A&P Assessment and Plan (1) Acute on chronic combined systolic and diastolic CHF (congestive heart failure): Code(s): I50.43 - Acute on chronic combined systolic (congestive) and diastolic (congestive) heart failure Status: Acute Assessment and Plan: Patient has a history of CHF which has been stable for a long time but has been admitted now with acute on chronic systolic and diastolic CHF. Diuresed and improved. Oral Lasix, but held due to dehydration. Lexiscan excluded a significant ischemic component. Echo shows worsening of left ventricular function, EF 30-35% by echo and 39% by Lexiscan Daily BMP; hypokalemia improved. Added Metoprolol 12.5 mg BID, but had some hypotension yesterday, better today. Will restart today. Shift to Toprol XL at d/c. Losartan also held because of hypotension. Perhaps restart this tomorrow. Added Farxiga/Jardiance, hopefully affordable (2) Hypotension: Code(s): I95.9 - Hypotension, unspecified Status: Acute Assessment and Plan: Low blood pressure Improved Probably due to over-diuresis and anemia Lasix, metoprolol, losartan held Rec'd IV fluids 03/25/2022 Started on midodrine 03/25/2022 Creatinine stable (3) Hematoma: Code(s): T14.8XXA - Other injury of unspecified body region, initial encounter Status: Acute Assessment and Plan: Hematoma of abdominal wall noted. H&H stable Eliquis DC'd CT showed no internal bleeding (4) Cardiomyopathy: Code(s): I42.9 - Cardiomyopathy, unspecified Status: Acute Assessment and Plan: EF 30-39% (5) DVT (deep venous thrombosis): Code(s): I82.409 - Acute embolism and thrombosis of unspecified deep veins of unspecified lower extremity Status: Acute Assessment and Plan: Has a DVT of the peroneal veins Eliquis held due to drop in H&H and abdominal wall hematoma/ecchymosis Low risk for PE Consider re-evaluation at a later date Mobilize once BP better (6) History of mitral valve repair: Code(s): Z98.890 - Other specified postprocedural states Status: Acute Assessment and Plan: History mitral valve repair, with mild to moderate mitral regurgitation on echo done September 2021. Stable mitral valve repair (7) Elevated troponin: Code(s): R77.8 - Other specified abnormalities of plasma proteins Status: Acute Assessment and Plan: Elevated troponin. No obvious chest discomfort or EKG changes to suggest an ischemic etiology. No known coronary disease. Lexiscan negative for ischemia Elevated troponins appear to be secondary to heart failure (8) Mass of left cardiac ventricle: Code(s): I51.89 - Other ill-defined heart diseases Status: Acute Assessment and Plan: Echo showed possible ruptured false tendon versus thrombus or vegetation. Looks like a ruptured chordae. No YEFRI indicated for further workup given no suspicion for endocarditis. (9) Elevated LFTs: Code(s): R79.89 - Other specified abnormal findings of blood chemistry Status: Acute Assessment and Plan: Elevated LFTs, with unusually high LDH. Abnormal CXR. May need further evaluation. Some may be secondary to acute CHF. Improving Subjective Date/time seen: 03/27/22 10:38 Cardiology follow up for CHF Feels weak today. Was working with PT at the time of my visit and felt funny when sitting on the edge of the bed. Lying down now feeling better. Denies any chest pain, palpitations, shortness of breath. Review of Systems Constitutional: Constitutional: Reports fatigue, Denies fever(s), Reports lethargy, Reports malaise and Reports weakness Cardiovascular: Cardiovascular: Denies chest pain, Denies pedal edema, Denies leg edema, Denies lightheadedness, Denies palpitations, Denies dyspnea and Denies dyspnea on exertion Respiratory: Respiratory: Denies chest congestion, Denies dyspnea and
[2022-03-27 11:08] LABS: Hematocrit 30.1 % (37.0-47.0); Hemoglobin 9.4 g/dL (12.0-15.0)
[2022-03-27 11:51] LABS: Glucose Point of Care 217 mg/dl (65-105)
[2022-03-27] MEDS: INSULIN ASPART (*BKC) 100 UNITS/ML SUB-Q (13:12)
[2022-03-27] MEDS: PANTOPRAZOLE SODIUM IV 40 MG VIAL IV PUSH ×2 (13:13→20:47)
[2022-03-27 13:22] LABS: Glucose Point of Care 210 mg/dl (65-105)
--- NOTE | 2022-03-27 13:42 | PCNSR ---
On 03/27/22, the student, Ramesh Lockwood, provided care and [facility]. I have reviewed the student's documentation and agree with the findings.
--- NOTE | 2022-03-27 14:21 | WPDGICN ---
Assessment and Plan Assessment and plan (1) Blood in stool: Code(s): K92.1 - Melena Status: Acute Assessment and Plan: one episode and small amount, probably perianal and she is constipated- eliquis is on hold anyway because abdominal wall hematoma given frailty with advanced heart disease and stable h/h, no need to proceed with endoscopic intervention ok to continue with iv protonix will follow from af[place], call if questions (2) Hematoma: Code(s): T14.8XXA - Other injury of unspecified body region, initial encounter Status: Acute Assessment and Plan: eliquis on hold per cardiology (3) Transaminitis: Code(s): R74.01 - Elevation of levels of liver transaminase levels Status: Acute Assessment and Plan: trending down, probably from chf exacerbation, no need of further work up (4) Macrocytic anemia: Code(s): D53.9 - Nutritional anemia, unspecified Status: Acute Assessment and Plan: monitor, low but stable (5) Acute on chronic combined systolic and diastolic CHF (congestive heart failure): Code(s): I50.43 - Acute on chronic combined systolic (congestive) and diastolic (congestive) heart failure Status: Acute Assessment and Plan: by cardiology (6) Cardiomyopathy: Code(s): I42.9 - Cardiomyopathy, unspecified Status: Acute GI Consult Note Consult date/time: 03/27/22 14:21 Reason for consult: blood in stool HPI: Shannon Stahl is a 86 year old female with history of heart failure with reduced ejection fraction (09/2021 TTE LVEF 45%, grade 1 diastolic dysfunction),? 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 She was admitted to the hospital 7 days ago with worsening shortness of breath with exacerbation of heart failure and evaluated by cardiology, also had initially elevated liver enzymes which trended down now, had + troponin but stable, also noted hematoma in abdominal wall with negative CT scan for internal bleeding, chronic macrocytic anemia. I was called because yesterday had one episode with small amount of brb with stool, none since and she is actually constipated. Her eliquis is on hold because abdominal wall hematoma. Review of Systems Constitutional: Constitutional: Reports fatigue, Denies fever(s), Reports lethargy, Reports malaise and Reports weakness Cardiovascular: Cardiovascular: Denies chest pain, Denies pedal edema, Denies leg edema, Denies lightheadedness, Denies palpitations, Denies dyspnea and Denies dyspnea on exertion Respiratory: Respiratory: Denies chest congestion, Denies dyspnea and Denies dyspnea on exertion Gastrointestinal: Gastrointestinal: Denies abdominal pain and Denies hematochezia Genitourinary: Genitourinary: Denies dysuria Musculoskeletal: Musculoskeletal: Reports no additional musculoskeletal complaints and Reports back pain Integumentary/Breasts: Skin/Breast: Reports system reviewed and no additional complaints, except as docu and Reports wounds (ecchymosis of abdomen) Neurologic: Reports system reviewed and no additional complaints, except as documented, Denies behavioral changes, Denies confusion and Reports weakness Psychiatric: Psychiatric: Reports no additional psychiatric complaints, Denies behavioral changes and Denies confusion Endocrine: Endocrine: Reports fatigue and Denies palpitations PMFSH Past Medical History Medical History Dyslipidemia GI bleed (08/2015) Heart failure with reduced ejection fraction EF was 45% on echo in September 2021. Grade 1 diastolic dysfunction. Hypertension Peptic ulcer Thyroid cancer Surgical History Surgical History (Reviewed
--- NOTE | 2022-03-27 16:45 | PM.CNGS ---
Assessment and Plan Assessment and plan (1) DVT (deep venous thrombosis): Code(s): I82.409 - Acute embolism and thrombosis of unspecified deep veins of unspecified lower extremity Status: Acute Assessment and Plan: DVT of the left peroneal veins and VQ scan showing intermediate possibility for PE. Patient was initially treated with Lovenox injections and developed a LLQ abdominal hematoma. This does not appear to be an enlarging hematoma and her hemoglobin is stable. This is likely from an injection site. With the hematoma, hypotension, and possible GI bleed, her anticoagulation has been stopped. We would recommend premedicating the patient and getting a CTA of the chest to further evaluate for a PE. If there is evidence of a pulmonary embolism with the DVT, then we could consider placing an IVC filter. Since she has a distal DVT, we could consider observing the DVT for extension or propagation with repeat imaging, if there is no PE on the CTA. I discussed this with the patient and her daughter, and they are agreeable to this plan. Thank you for allowing us to see the patient in consultation and we will continue to follow along with you. (2) Hematoma: Code(s): T14.8XXA - Other injury of unspecified body region, initial encounter Status: Acute (3) Blood in stool: Code(s): K92.1 - Melena Status: Acute (4) Shortness of breath: Code(s): R06.02 - Shortness of breath Status: Acute (5) Acute on chronic combined systolic and diastolic CHF (congestive heart failure): Code(s): I50.43 - Acute on chronic combined systolic (congestive) and diastolic (congestive) heart failure Status: Acute (6) Cardiomyopathy: Code(s): I42.9 - Cardiomyopathy, unspecified Status: Acute (7) Macrocytic anemia: Code(s): D53.9 - Nutritional anemia, unspecified Status: Acute Assessment and Plan: Hgb appears stable. Continue to monitor H/H. Plan I have discussed the patient's case and plan of care with Dr. Nieto. History of Present Illness Consult details Consult date: 03/27/22 Reason for consult: other (IVC filter placement) Requesting physician: Abhi Sanon MD Narrative: This is an 86-year-old woman with multiple medical problems who presented to the ER on 03/20/2022 with complaints of shortness of breath. She was found to have an elevated troponin and BMP, and has recently had decreased mobility. Due to an IV contrast allergy, a V/Q scan was ordered to rule out PE. This showed intermediate probability for PE. Venous Dopplers showed DVT involving the left peroneal veins. She was started on therapeutic dosed Lovenox for anticoagulation. Cardiology was also consulted due to her acute on chronic heart failure. They proceed with a Lexiscan which showed no ischemic component. She also had an echocardiogram that showed an EF of 30-35%. She was found to have bruising in her left lower abdomen with anemia and hypotension. She subsequently had a CT scan of abdomen and pelvis which showed subcutaneous fat stranding in the left anterior abdominal wall consistent with a hematoma. Her Lovenox was held. Venous Dopplers were repeated yesterday and still showed persistent left peroneal vein thrombosis. Our service has now been consulted by the hospitalist and request for IVC filter placement. The patient is now seen with her daughter at the bedside. She denies any specific complaints at this time. No history of DVT or PE prior to this hospitalization. Review of Systems Review of Systems: All systems reviewed & are unremarkable except as noted in HPI and below Cardiovascular: Cardiovascular: Reports no additional cardiovascular complaints, Denies chest pain, Denies leg edema and Reports dyspnea on exertion Respiratory: Respiratory: Reports no additional respiratory complaints, Denies cough and Reports dyspnea on exertion PMFSH Past Medical History Medical History (Re
[2022-03-27 17:11] LABS: Glucose Point of Care 162 mg/dl (65-105)
[2022-03-27 20:00] LABS: Appearance Urine Clear (Clear); Bilirubin Urine 1+ (Negative); Blood Urine 2+ (Negative); Color Urine Yellow (Yellow); Glucose Urine UA 3+ mg/dL (Negative); Ketones Urine 1+ mg/dL (Negative); Leukocyte Esterase Ur 1+ LEU/UL (Negative); Nitrate Urine Negative (Negative); Protein Urine Trace mg/dL (Negative); Specific Grav Ur 1.015 (1.001-1.035); pH Urine 5.5 (5.0-9.0)
[2022-03-27 20:10] LABS: Mucus Urine Rare /lpf; RBC Urine 21-50 /hpf (0-2); WBC Urine 51-75 /hpf
[2022-03-27 20:11] LABS: Add Urine Microscopic? YES
--- NOTE | 2022-03-27 20:17 | ECG_ITS ---
Measurements Intervals Leonore Rate: 135 P: ID: 0 QRS: 24 QRSD: 93 T: 28 QT: 304 QTc: 456 Interpretive Statements ATRIAL FIBRILLATION WITH RAPID VENTRICULAR RESPONSE NONSPECIFIC ST & T-WAVE ABNORMALITY- INFERIOR LEADS ABNORMAL ECG COMPARED TO ECG 03/21/2022 14:38:25 ATRIAL FIBRILLATION NOW PRESENT Electronically Signed On 03-28-2022 6:57:10 CDT by Marcos Pineda D.O.
[2022-03-27 20:22] LABS: Glucose Point of Care 251 mg/dl (65-105)
[2022-03-27] MEDS: SODIUM CHLORIDE 0.9% IV 250 ML IV CONT (20:45)
[2022-03-27] MEDS: DIGOXIN INJ 250 MCG/ML 2 ML AMP (*BKC) 125 MCG IV PUSH ×2 (20:45→23:21)
[2022-03-27] MEDS: predniSONE 40 MG, predniSONE 10 MG 50 MG PO (20:46)
[2022-03-27] MEDS: ACETAMINOPHEN 500 MG TABLET PO (20:46)
[2022-03-27] MEDS: APIXABAN 2.5 MG TABLET PO (20:47)
[2022-03-27] MEDS: MIDODRINE HCL 10 MG TABLET PO (23:21)
[2022-03-28] VITALS (11 sets, daily range): BP systolic 85–125; BP diastolic 44–104; PULSE 88–137; RESP 12–97; TEMP 36–36.6; O2SAT 95–100
[2022-03-28] MEDS: predniSONE 40 MG, predniSONE 10 MG 50 MG PO ×2 (02:30→09:06)
[2022-03-28 04:45] LABS: Basophils Percent Auto 0.2 % (0.2-1.2); Hematocrit 26.3 % (37.0-47.0); Hemoglobin 8.6 g/dL (12.0-15.0); Immature Granulocyte Absolute 0.39 K/mm3 (0.00-0.031); Immature Granulocyte Percent A 3.9 % (0-0.5); Lymphocytes Percent Auto 23.8 % (18.3-44.2); Mean Corpuscular HGB Conc 32.7 g/dl (32-36); Mean Corpuscular Hemoglobin 33.9 pg (26-34); Mean Corpuscular Volume 103.5 fl (80-100); Mean Platelet Volume 9.8 fl (7.4-10.4); Monocytes Absolute Auto 0.3 K/mm3 (0.1-0.6); Monocytes Percent Auto 3.4 % (2.6-8.5); Neutrophils Absolute Auto 6.9 K/mm3 (1.3-6.7); Neutrophils Percent Auto 68.7 % (45.5-73.1); Nucleated Red Blood Cells Absolute Auto 0.2 K/mm3 (0.0-0.012); Nucleated Red Blood Cells Perc 2.1 % (0.0-0.2); Platelet Count Result 125 k/mm3 (150-375); Red Blood Count 2.54 M/mm3 (4.2-5.4); Red Cell Distribution Width 20.5 % (11.5-14.5); White Blood Count 10.1 K/mm3 (4.5-10.0)
[2022-03-28 04:58] LABS: Alanine Aminotransferase 59 U/L (6-35); Albumin Level 2.8 g/dL (3.5-5.1); Alkaline Phosphatase 91 U/L (38-126); Anion Gap 9 mmol/L (8-16); Aspartate Amino Transferase 23 U/L (14-36); Bilirubin,Total 1.4 mg/dL (0.2-1.3); Blood Urea Nitrogen 53 mg/dL (7-17); Calcium 7.7 mg/dL (8.4-10.2); Carbon Dioxide 27 mmol/L (22-30); Chloride 101 mmol/L (98-107); Estimated CRCL calculation 38 ml/min; Estimated Glomerular Filt Rate > 60; Glucose 172 mg/dL (65-110); Magnesium 2.1 mg/dL (1.6-2.3); Potassium 3.6 mmol/L (3.4-5.0); Sodium 137 mmol/L (137-145)
[2022-03-28] MEDS: diphenhydrAMINE HCl CAP 25 MG CAPSULE 50 MG PO (09:05)
[2022-03-28] MEDS: CHOLECALCIFEROL 1,000 UNITS TABLET 1000 UNITS PO (09:07)
[2022-03-28] MEDS: APIXABAN 2.5 MG TABLET PO ×2 (09:07→20:29)
[2022-03-28] MEDS: MIDODRINE HCL 2.5 MG TABLET 5 MG PO ×3 (09:07→17:29)
[2022-03-28] MEDS: CITALOPRAM HYDROBROMIDE 10 MG TABLET PO (09:07)
[2022-03-28] MEDS: ATORVASTATIN 10 MG TABLET PO (09:07)
[2022-03-28] MEDS: EMPAGLIFLOZIN 10 MG TABLET PO (09:08)
[2022-03-28 09:28] LABS: Glucose Point of Care 160 mg/dl (65-105)
[2022-03-28] MEDS: PANTOPRAZOLE SODIUM IV 40 MG VIAL IV PUSH ×2 (11:32→20:30)
[2022-03-28] MEDS: METOPROLOL TARTRATE 12.5 MG TABLET PO (11:32)
[2022-03-28 12:55] LABS: Glucose Point of Care 203 mg/dl (65-105)
--- NOTE | 2022-03-28 13:32 | P.PNCA_ITS ---
Progress Note: A&P Assessment and Plan (1) Acute on chronic combined systolic and diastolic CHF (congestive heart failure): Code(s): I50.43 - Acute on chronic combined systolic (congestive) and diastolic (congestive) heart failure Status: Acute Assessment and Plan: Patient has a history of CHF which has been stable for a long time but has been admitted now with acute on chronic systolic and diastolic CHF. * Diuresed and improved. Oral Lasix, but held due to dehydration. * Lexiscan excluded a significant ischemic component. * Echo shows worsening of left ventricular function, EF 30-35% by echo and 39% by Lexiscan * Daily BMP; hypokalemia improved. * Added Metoprolol 12.5 mg BID. BP is better today so will advance her dose. Shift to Toprol XL at d/c. * Losartan also held because of hypotension which has improved. Will restart today. * Added Farxiga/Jardiance, hopefully affordable (2) Atrial fibrillation: Code(s): I48.91 - Unspecified atrial fibrillation Status: Acute Assessment and Plan: Asymptomatic. Rate control with metoprolol. She is on DVT dose of eliquis, should be advanced to 5mg b.i.d. for stroke prevention. Did have recent abdominal wall hematoma, however. If H&H remains stable should cautiously increase to therapeutic dose for stroke prevention. (3) Hypotension: Code(s): I95.9 - Hypotension, unspecified Status: Acute Assessment and Plan: Low blood pressure Improved * Probably due to over-diuresis and anemia * Lasix, metoprolol, losartan held * Rec'd IV fluids 03/25/2022 * Started on midodrine 03/25/2022 * Creatinine stable (4) Hematoma: Code(s): T14.8XXA - Other injury of unspecified body region, initial encounter Status: Acute Assessment and Plan: Hematoma of abdominal wall noted. * H&H stable * CT showed no internal bleeding (5) Cardiomyopathy: Code(s): I42.9 - Cardiomyopathy, unspecified Status: Acute Assessment and Plan: EF 30-39% (6) DVT (deep venous thrombosis): Code(s): I82.409 - Acute embolism and thrombosis of unspecified deep veins of unspecified lower extremity Status: Acute Assessment and Plan: Has a DVT of the peroneal veins * Eliquis held due to drop in H&H and abdominal wall hematoma/ecchymosis * Low risk for PE * Consider re-evaluation at a later date * Mobilize once BP better (7) History of mitral valve repair: Code(s): Z98.890 - Other specified postprocedural states Status: Acute Assessment and Plan: History mitral valve repair, with mild to moderate mitral regurgitation on echo done September 2021. * Stable mitral valve repair (8) Elevated troponin: Code(s): R77.8 - Other specified abnormalities of plasma proteins Status: Acute Assessment and Plan: Elevated troponin. No obvious chest discomfort or EKG changes to suggest an ischemic etiology. No known coronary disease. * Lexiscan negative for ischemia * Elevated troponins appear to be secondary to heart failure (9) Mass of left cardiac ventricle: Code(s): I51.89 - Other ill-defined heart diseases Status: Acute Assessment and Plan: Echo showed possible ruptured false tendon versus thrombus or vegetation. * Looks like a ruptured chordae. No YEFRI indicated for further workup given no suspicion for endocarditis. (10) Elevated LFTs: Code(s): R79.89 - Other specified abnormal findings of blood chemistry Status: Acute Assessment and Plan: Elevated LFTs
--- NOTE | 2022-03-28 13:32 | PM.PNCARD ---
Progress Note: A&P Assessment and Plan (1) Acute on chronic combined systolic and diastolic CHF (congestive heart failure): Code(s): I50.43 - Acute on chronic combined systolic (congestive) and diastolic (congestive) heart failure Status: Acute Assessment and Plan: Patient has a history of CHF which has been stable for a long time but has been admitted now with acute on chronic systolic and diastolic CHF. Diuresed and improved. Oral Lasix, but held due to dehydration. Lexiscan excluded a significant ischemic component. Echo shows worsening of left ventricular function, EF 30-35% by echo and 39% by Lexiscan Daily BMP; hypokalemia improved. Added Metoprolol 12.5 mg BID. BP is better today so will advance her dose. Shift to Toprol XL at d/c. Losartan also held because of hypotension which has improved. Will restart today. Added Farxiga/Jardiance, hopefully affordable (2) Atrial fibrillation: Code(s): I48.91 - Unspecified atrial fibrillation Status: Acute Assessment and Plan: Asymptomatic. Rate control with metoprolol. She is on DVT dose of eliquis, should be advanced to 5mg b.i.d. for stroke prevention. Did have recent abdominal wall hematoma, however. If H&H remains stable should cautiously increase to therapeutic dose for stroke prevention. (3) Hypotension: Code(s): I95.9 - Hypotension, unspecified Status: Acute Assessment and Plan: Low blood pressure Improved Probably due to over-diuresis and anemia Lasix, metoprolol, losartan held Rec'd IV fluids 03/25/2022 Started on midodrine 03/25/2022 Creatinine stable (4) Hematoma: Code(s): T14.8XXA - Other injury of unspecified body region, initial encounter Status: Acute Assessment and Plan: Hematoma of abdominal wall noted. H&H stable CT showed no internal bleeding (5) Cardiomyopathy: Code(s): I42.9 - Cardiomyopathy, unspecified Status: Acute Assessment and Plan: EF 30-39% (6) DVT (deep venous thrombosis): Code(s): I82.409 - Acute embolism and thrombosis of unspecified deep veins of unspecified lower extremity Status: Acute Assessment and Plan: Has a DVT of the peroneal veins Eliquis held due to drop in H&H and abdominal wall hematoma/ecchymosis Low risk for PE Consider re-evaluation at a later date Mobilize once BP better (7) History of mitral valve repair: Code(s): Z98.890 - Other specified postprocedural states Status: Acute Assessment and Plan: History mitral valve repair, with mild to moderate mitral regurgitation on echo done September 2021. Stable mitral valve repair (8) Elevated troponin: Code(s): R77.8 - Other specified abnormalities of plasma proteins Status: Acute Assessment and Plan: Elevated troponin. No obvious chest discomfort or EKG changes to suggest an ischemic etiology. No known coronary disease. Lexiscan negative for ischemia Elevated troponins appear to be secondary to heart failure (9) Mass of left cardiac ventricle: Code(s): I51.89 - Other ill-defined heart diseases Status: Acute Assessment and Plan: Echo showed possible ruptured false tendon versus thrombus or vegetation. Looks like a ruptured chordae. No YEFRI indicated for further workup given no suspicion for endocarditis. (10) Elevated LFTs: Code(s): R79.89 - Other specified abnormal findings of blood chemistry Status: Acute Assessment and Plan: Elevated LFTs, with unusually high LDH. Abnormal CXR. May need further evaluation. Some may be secondary to acute CHF. Improving Subjective Date/time seen: 03/28/22 13:32 Cardiology follow up for CHF, atrial fibrillation Interval history: Feels about the same today. Still complaining of feeling weak. No chest pain, palpitations, shortness of breath. Still on 3L O2. Date of service 03/28/2022: States she feels
--- NOTE | 2022-03-28 14:55 | WPDGIPROGNO ---
Progress Note: A&P Assessment and Plan (1) Blood in stool: Code(s): K92.1 - Melena Status: Acute Assessment and Plan: no more episodes chronic anemia and also is multifactorial no need of colonoscopy, conservative management call if questions (2) Atrial fibrillation: Code(s): I48.91 - Unspecified atrial fibrillation Status: Acute (3) Acute on chronic combined systolic and diastolic CHF (congestive heart failure): Code(s): I50.43 - Acute on chronic combined systolic (congestive) and diastolic (congestive) heart failure Status: Acute Assessment and Plan: by cardiology (4) DVT (deep venous thrombosis): Code(s): I82.409 - Acute embolism and thrombosis of unspecified deep veins of unspecified lower extremity Status: Acute Assessment and Plan: low dose eliquis- monitor in setting of anemia and hematoma abdominal wall (5) Hematoma: Code(s): T14.8XXA - Other injury of unspecified body region, initial encounter Status: Acute (6) Elevated LFTs: Code(s): R79.89 - Other specified abnormal findings of blood chemistry Status: Acute Subjective Date/time seen: 03/28/22 14:55 Interval history: no changes, no BM and no more report of rectal bleeding per [employer] rolls of Systems Review of Systems: All systems reviewed & are unremarkable except as noted in HPI and below Exam Const: General: cooperative and comfortable; No confusion Orientation/consciousness: oriented to person, patient oriented x3 and No confusion Other: frail-appearing, appears tired. HENMT: Mouth: Yes moist mucous membranes Eyes: EOM: EOMs intact bilaterally Neck: Neck: supple and no JVD Thyroid: thyroid normal Resp: Effort & Inspection: normal respiratory effort Auscultation: clear to auscultation bilaterally and rales Other: Only a few scattered rales in the bases, improved Cardio: Rate: regular rate Rhythm: abnormal rhythm irregularly irregular Heart sounds: Murmur heart sound present (1/6 CAROLANN left sternal border) GI: Inspection: normal to inspection Other: Has abdominal wall ecchymosis, small hematoma Skin: General skin exam: normal color and no rashes or lesions noted Lesions: lesion noted Other: Abdominal wall ecchymosis with small hematoma Neuro: General: oriented to person, patient oriented x3 and No confusion Other: Decreased memory Extrem: Right lower extremity: no edema Left lower extremity: no edema Other: Mild bilateral pretibial edema Psych: Appearance: grossly normal Mental Status: mental status grossly normal Objective Data Vital Signs Vital Signs: Vital Signs - 24 hr 03/27/22 16:00 03/27/22 16:00 03/27/22 20:00 Temperature 97.6 F 97.7 F Pulse Rate 81 90 154 H Respiratory Rate 22 H 20 Blood Pressure 91/66 L 86/60 L Pulse Oximetry 98 95 Oxygen Delivery Oxygen Flow Rate Fraction of Inspired Oxygen 03/27/22 20:45 03/27/22 20:00 03/27/22 20:00 Temperature Pulse Rate 172 H 172 H 149 H Respiratory Rate 20 Blood Pressure Pulse Oximetry 95 Oxygen Delivery Nasal Cannula Oxygen Flow Rate 3 Fraction of Inspired Oxygen 21 03/27/22 22:00 03/27/22 23:17 03/27/22 23:21 Temperature 98.0 F Pulse Rate 129 H 140 H 132 H Respiratory Rate 20 Blood Pressure 82/51 L Pulse Oximetry 94 Oxygen Delivery Oxygen Flow Rate Fraction of Inspired Oxygen 03/28/22 00:00 03/28/22 02:00 03/28/22 04:00 Temperature Pulse Rate 117 H 121 H 94 Respiratory Rate Blood Pressure Pulse Oximetry Oxygen Delivery Oxygen Flow Rate Fraction of Inspired Oxygen 03/27/22 23:10 03/28/22 04:40 03/28/22 08:00 Temperature 97.9 F 96.8 F L Pulse Rate 95 105 H Respiratory Rate 97 H 12 Blood Pressure 97/62 L 125/104 H Pulse Oximetry 95 99 100 Oxygen Delivery Nasal Cannula Oxygen Flow Rate 3 Fraction of Inspired Oxygen 03/28/22 11:32 03/28/22 08:00 03/28
--- NOTE | 2022-03-28 15:40 | PM.IMPN ---
Progress Note: A&P Assessment and Plan (1) Elevated troponin: Code(s): R77.8 - Other specified abnormalities of plasma proteins Status: Acute Assessment and Plan: She is not having any chest pain whatsoever and EKG does not show acute ST segment changes. However her troponin is modestly elevated and she has marked elevation proBNP Cardiology has been consulted. EchoWith EF 30-35% which is worsened compared to previous levels Status post Lexiscan with EF 39% negative for ischemia Echo showed possible ruptured false tendon versus thrombus or vegetation. Suspected to be ruptured chordae tendineae. No YEFRI needed (2) Shortness of breath: Code(s): R06.02 - Shortness of breath Status: Acute Assessment and Plan: This has been an ongoing issue for the last week or so. I am not certain she has an active pulmonary infection though imaging suggests small bilateral pleural effusions with patchy infiltrates and/or atelectasis in the lower lung zones. With an elevated troponin and proBNP in addition to decreased activity recently, pulmonary embolism certainly is a consideration. She has a contrast allergy and at this time she was started on empiric Lovenox 1 milligram/kilogram b.i.d. Venous duplex positive for DVT of peroneal veins V/Q scan indeterminate Currently on Lovenox However now complicated with abdominal wall Hematoma.CT abdomen with subcutaneous fat stranding in the anterior abdominal wall and left is hematoma. H&H slightly dropped To 9.9 from 10.9 on 03/24. Monitor H&H has remained stable now. Mildly hypotensive throughout the day 03/25 added on midodrine. Anticoagulation held hemodynamics improved with anticoagulation held. Repeat venous duplex with persistent peroneal vein DVT which is a distal DVT. There is a V/Q scan which is indeterminate the possibility off PE remains. With continued drop in H&H persisted finding of peroneal vein DVT , discussed with General surgery for IVC filter placement. Since his DVT is a distal and no clear-cut evidence of PE no indication of anticoagulation if this can be approved. And hence she underwent CTA PE protocol which completed today showed no evidence of PE. However She has another indication for anticoagulation now due to atrial fibrillation. Started on DVT prophylaxis dose of apixaban 2.5 mg b.i.d. 03/27/2022. Will continue on the same until the H&H is stable and subsequently advanced to full does if this remains stable. Distal DVTs can be managed however with serial ultrasound to ensure no further propagation (3) Heart failure with reduced ejection fraction: Code(s): I50.20 - Unspecified systolic (congestive) heart failure Status: Acute Assessment and Plan: Most recent EF was measured at 45%. She does appear clinically compensated however her labs (elevated troponin, proBNP, and LFTs) suggests that she may have some congestion. She was given a dose of Lasix 40 milligrams IV x1 in the ER Continue diuresis as tolerated No shortness of breaths likely related to her PE also on farxiga added;losartan, metoprolol Continue to hold losartan metoprolol Lasix and spironolactone due to hypotension (4) Transaminitis: Code(s): R74.01 - Elevation of levels of liver transaminase levels Status: Acute Assessment and Plan: Etiology is not entirely clear. Her abdominal exam is benign. She gives no history to suggest acute hepatitis though will check hepatitis panel. Right upper quadrant ultrasound has been ordered for a.m.. With markedly elevated proBNP, she may have hepatic congestion from heart failure though she does not look acutely volume overloaded. (5) Macrocytic anemia: Code(s): D53.9 - Nutritional anemia, unspecified Status: Acute Assessment and Plan: Check iron studies as well as B12 and folates. (6) Thrombocytopenia: Code(s): D69.6 - Thrombocytopenia, unspecified Status: Acute
--- NOTE | 2022-03-28 16:53 | PM.PNGS ---
Progress Note: A&P Assessment and Plan (1) DVT (deep venous thrombosis): Code(s): I82.409 - Acute embolism and thrombosis of unspecified deep veins of unspecified lower extremity Status: Acute Assessment and Plan: No PE on CTA chest. DVT is below knee, therefore has low risk of propagation. Patient might still need anticoagulation due to A fib, but will not place IVC filter at this time. Would recommend repeat LE venous u/s in 2 weeks. Will sign off. (2) Acute on chronic combined systolic and diastolic CHF (congestive heart failure): Code(s): I50.43 - Acute on chronic combined systolic (congestive) and diastolic (congestive) heart failure Status: Acute (3) Elevated troponin: Code(s): R77.8 - Other specified abnormalities of plasma proteins Status: Acute (4) Hematoma: Code(s): T14.8XXA - Other injury of unspecified body region, initial encounter Status: Acute (5) Blood in stool: Code(s): K92.1 - Melena Status: Acute (6) Atrial fibrillation: Code(s): I48.91 - Unspecified atrial fibrillation Status: Acute Subjective Subjective Date/Time Seen: 03/28/22 16:53 Interval history: CT performed today. Patient reports no allergic side effects from the contrast. Now in A fib. Exam Const: General: comfortable, no acute distress and awake Nutritional Appearance: average body habitus Orientation/consciousness: patient oriented x3 (Able to answer orientation questions,confused with historical questions) and confusion HENMT: Head: normocephalic and atraumatic Ears: hearing grossly normal bilaterally Mouth: Yes moist mucous membranes Resp: Effort & Inspection: no respiratory distress Auscultation: diminished lung sounds GI: Inspection: abdominal wall ecchymosis (lower abd) and non-distended GI Palp: Yes Soft to palpation, Yes Tenderness to palpation present (GI) (Only at the left lower quadrant hematoma), No Guarding due to palpation present (GI) and No Rebound tenderness present Auscultation: normal bowel sounds Rectal Exam: deferred Other: Small LLQ hematoma with surrounding ecchymosis extending medially and left laterally Extrem: General: normal to inspection, no calf tenderness bilaterally and edema (Trace bilateral lower extremity edema) Objective Data Vital Signs Vital Signs: Vital Signs - 24 hr 03/27/22 20:00 03/27/22 20:45 03/27/22 20:00 Temperature 36.5 C Pulse Rate 154 H 172 H 172 H Respiratory Rate 20 20 Blood Pressure 86/60 L Pulse Oximetry 95 95 Oxygen Delivery Nasal Cannula Oxygen Flow Rate 3 Fraction of Inspired Oxygen 21 03/27/22 20:00 03/27/22 22:00 03/27/22 23:17 Temperature 36.7 C Pulse Rate 149 H 129 H 140 H Respiratory Rate 20 Blood Pressure 82/51 L Pulse Oximetry 94 Oxygen Delivery Oxygen Flow Rate Fraction of Inspired Oxygen 03/27/22 23:21 03/28/22 00:00 03/28/22 02:00 Temperature Pulse Rate 132 H 117 H 121 H Respiratory Rate Blood Pressure Pulse Oximetry Oxygen Delivery Oxygen Flow Rate Fraction of Inspired Oxygen 03/28/22 04:00 03/27/22 23:10 03/28/22 04:40 Temperature 36.6 C Pulse Rate 94 95 Respiratory Rate 97 H Blood Pressure 97/62 L Pulse Oximetry 95 99 Oxygen Delivery Nasal Cannula Oxygen Flow Rate 3 Fraction of Inspired Oxygen 03/28/22 08:00 03/28/22 11:32 03/28/22 08:00 Temperature 36.0 C L Pulse Rate 105 H 137 H 88 Respiratory Rate 12 Blood Pressure 125/104 H Pulse Oximetry 100 Oxygen Delivery Oxygen Flow Rate Fraction of Inspired Oxygen 03/28/22 08:00 03/28/22 16:00 Temperature 36.6 C Pulse Rate 113 H Respiratory Rate 12 Blood Pressure 85/62 L Pulse Oximetry 100 98 Oxygen Delivery Nasal Cannula Oxygen Flow Rate 3 Fraction of Inspired Oxygen Intake/Output Intake/Output: Intake & Output 03/25/22 03/26/22 03/27/22 03/28/22 23:59 23:59 23:59 23:59 Intake To
[2022-03-28 17:11] LABS: Glucose Point of Care 245 mg/dl (65-105)
[2022-03-28] MEDS: INSULIN ASPART (*BKC) 100 UNITS/ML SUB-Q (17:28)
[2022-03-28 20:13] LABS: Glucose Point of Care 277 mg/dl (65-105)
[2022-03-28] MEDS: ACETAMINOPHEN 500 MG TABLET PO (20:28)
[2022-03-28] MEDS: METOPROLOL TARTRATE 25 MG TABLET PO (20:29)
[2022-03-29] VITALS (12 sets, daily range): BP systolic 84–110; BP diastolic 53–74; PULSE 62–152; RESP 16–18; TEMP 36.3–36.6; O2SAT 95–100
[2022-03-29 04:21] LABS: Hematocrit 28.2 % (37.0-47.0); Hemoglobin 9.1 g/dL (12.0-15.0); Mean Corpuscular HGB Conc 32.3 g/dl (32-36); Mean Corpuscular Hemoglobin 33.8 pg (26-34); Mean Corpuscular Volume 104.8 fl (80-100); Mean Platelet Volume 9.9 fl (7.4-10.4); Platelet Count Result 140 k/mm3 (150-375); Red Blood Count 2.69 M/mm3 (4.2-5.4); Red Cell Distribution Width 20.8 % (11.5-14.5); White Blood Count 9.6 K/mm3 (4.5-10.0)
[2022-03-29 04:34] LABS: Alanine Aminotransferase 53 U/L (6-35); Albumin Level 2.8 g/dL (3.5-5.1); Alkaline Phosphatase 105 U/L (38-126); Anion Gap 6 mmol/L (8-16); Aspartate Amino Transferase 25 U/L (14-36); Blood Urea Nitrogen 62 mg/dL (7-17); Calcium 7.8 mg/dL (8.4-10.2); Carbon Dioxide 28 mmol/L (22-30); Chloride 100 mmol/L (98-107); Estimated CRCL calculation 34 ml/min; Estimated Glomerular Filt Rate 59; Glucose 187 mg/dL (65-110); Magnesium 2.1 mg/dL (1.6-2.3); Potassium 3.4 mmol/L (3.4-5.0); Sodium 134 mmol/L (137-145)
[2022-03-29 04:46] LABS: Band Neutrophils Percent 1 % (0-6); Lymphocytes Absolute Manual 0.67 K/mm3 (1.1-4.5); Macrocytosis 1+ (NORMAL); Monocytes Absolute Manual 0.19 K/mm3 (0.1-0.90); Monocytes Percent Manual 2 % (3-9); Neutrophils Absolute Manual 8.73 K/mm3 (1.7-7.2); Neutrophils Percent Manual 90 % (46-73); Nucleated Red Blood Cells 5 %; Platelet Estimate Adequate (Adequate); Polychromasia 1+ (NORMAL); Schistocytes None Seen (NORMAL); Total Cells Counted 100
[2022-03-29 04:47] LABS: Anisocytosis 1+ (NORMAL)
[2022-03-29] MEDS: LEVOTHYROXINE SODIUM 25 MCG TABLET PO (05:35)
[2022-03-29] MEDS: ATORVASTATIN 10 MG TABLET PO (08:14)
[2022-03-29] MEDS: MIDODRINE HCL 2.5 MG TABLET 5 MG PO ×3 (08:14→16:13)
[2022-03-29] MEDS: CHOLECALCIFEROL 1,000 UNITS TABLET 1000 UNITS PO (08:14)
[2022-03-29] MEDS: CITALOPRAM HYDROBROMIDE 10 MG TABLET PO (08:14)
[2022-03-29 08:15] LABS: Glucose Point of Care 193 mg/dl (65-105)
[2022-03-29] MEDS: APIXABAN 2.5 MG TABLET PO (08:15)
[2022-03-29] MEDS: EMPAGLIFLOZIN 10 MG TABLET PO (08:16)
[2022-03-29] MEDS: PANTOPRAZOLE SODIUM IV 40 MG VIAL IV PUSH ×2 (08:16→20:19)
--- NOTE | 2022-03-29 08:58 | P.PNCA_ITS ---
Progress Note: A&P Assessment and Plan (1) Acute on chronic combined systolic and diastolic CHF (congestive heart failure): Code(s): I50.43 - Acute on chronic combined systolic (congestive) and diastolic (congestive) heart failure Status: Acute Assessment and Plan: Patient has a history of CHF which has been stable for a long time but has been admitted now with acute on chronic systolic and diastolic CHF. * Diuresed and improved. Oral Lasix, but on hold due to dehydration. * Lexiscan excluded a significant ischemic component. * Echo shows worsening of left ventricular function, EF 30-35% by echo and 39% by Lexiscan * Daily BMP; hypokalemia improved. * Added Metoprolol 12.5 mg BID. BP is better today so will advance her dose. Shift to Toprol XL at d/c. * Losartan also held because of hypotension which has improved. Will restart today. * Added Farxiga/Jardiance, hopefully affordable (2) Atrial fibrillation: Code(s): I48.91 - Unspecified atrial fibrillation Status: Acute Assessment and Plan: Asymptomatic. Rate control with metoprolol. Advance Eliquis dose to 5mg b.i.d. for stroke prevention. (3) Hypotension: Code(s): I95.9 - Hypotension, unspecified Status: Acute Assessment and Plan: Low blood pressure has improved * Probably due to over-diuresis and anemia * Lasix, metoprolol, losartan held * Rec'd IV fluids 03/25/2022 * Started on midodrine 03/25/2022 * Creatinine stable (4) Hematoma: Code(s): T14.8XXA - Other injury of unspecified body region, initial encounter Status: Acute Assessment and Plan: Hematoma of abdominal wall noted. * H&H stable * CT showed no internal bleeding (5) Cardiomyopathy: Code(s): I42.9 - Cardiomyopathy, unspecified Status: Acute Assessment and Plan: EF 30-39% (6) DVT (deep venous thrombosis): Code(s): I82.409 - Acute embolism and thrombosis of unspecified deep veins of unspecified lower extremity Status: Acute Assessment and Plan: Has a DVT of the peroneal veins * Eliquis held due to drop in H&H and abdominal wall hematoma/ecchymosis. This has been restarted. * Low risk for PE * Consider re-evaluation at a later date * Mobilize as able with PT/OT (7) History of mitral valve repair: Code(s): Z98.890 - Other specified postprocedural states Status: Acute Assessment and Plan: History mitral valve repair, with mild to moderate mitral regurgitation on echo done September 2021. * Stable mitral valve repair (8) Elevated troponin: Code(s): R77.8 - Other specified abnormalities of plasma proteins Status: Acute Assessment and Plan: Elevated troponin. No obvious chest discomfort or EKG changes to suggest an ischemic etiology. No known coronary disease. * Lexiscan negative for ischemia * Elevated troponins appear to be secondary to heart failure (9) Mass of left cardiac ventricle: Code(s): I51.89 - Other ill-defined heart diseases Status: Acute Assessment and Plan: Echo showed possible ruptured false tendon versus thrombus or vegetation. * Looks like a ruptured chordae. No YEFRI indicated for further workup given no suspicion for endocarditis. (10) Elevated LFTs: Code(s): R79.89 - Other specified abnormal findings of blood chemistry Status: Acute Assessment and Plan: Elevated LFTs, with unusually high LDH. Abnormal CXR. May need further evaluation. * Some may be secondary to acute CHF. * Improving
--- NOTE | 2022-03-29 08:58 | PM.PNCARD ---
Progress Note: A&P Assessment and Plan (1) Acute on chronic combined systolic and diastolic CHF (congestive heart failure): Code(s): I50.43 - Acute on chronic combined systolic (congestive) and diastolic (congestive) heart failure Status: Acute Assessment and Plan: Patient has a history of CHF which has been stable for a long time but has been admitted now with acute on chronic systolic and diastolic CHF. Diuresed and improved. Oral Lasix, but on hold due to dehydration. Lexiscan excluded a significant ischemic component. Echo shows worsening of left ventricular function, EF 30-35% by echo and 39% by Lexiscan Daily BMP; hypokalemia improved. Added Metoprolol 12.5 mg BID. BP is better today so will advance her dose. Shift to Toprol XL at d/c. Losartan also held because of hypotension which has improved. Will restart today. Added Farxiga/Jardiance, hopefully affordable (2) Atrial fibrillation: Code(s): I48.91 - Unspecified atrial fibrillation Status: Acute Assessment and Plan: Asymptomatic. Rate control with metoprolol. Advance Eliquis dose to 5mg b.i.d. for stroke prevention. (3) Hypotension: Code(s): I95.9 - Hypotension, unspecified Status: Acute Assessment and Plan: Low blood pressure has improved Probably due to over-diuresis and anemia Lasix, metoprolol, losartan held Rec'd IV fluids 03/25/2022 Started on midodrine 03/25/2022 Creatinine stable (4) Hematoma: Code(s): T14.8XXA - Other injury of unspecified body region, initial encounter Status: Acute Assessment and Plan: Hematoma of abdominal wall noted. H&H stable CT showed no internal bleeding (5) Cardiomyopathy: Code(s): I42.9 - Cardiomyopathy, unspecified Status: Acute Assessment and Plan: EF 30-39% (6) DVT (deep venous thrombosis): Code(s): I82.409 - Acute embolism and thrombosis of unspecified deep veins of unspecified lower extremity Status: Acute Assessment and Plan: Has a DVT of the peroneal veins Eliquis held due to drop in H&H and abdominal wall hematoma/ecchymosis. This has been restarted. Low risk for PE Consider re-evaluation at a later date Mobilize as able with PT/OT (7) History of mitral valve repair: Code(s): Z98.890 - Other specified postprocedural states Status: Acute Assessment and Plan: History mitral valve repair, with mild to moderate mitral regurgitation on echo done September 2021. Stable mitral valve repair (8) Elevated troponin: Code(s): R77.8 - Other specified abnormalities of plasma proteins Status: Acute Assessment and Plan: Elevated troponin. No obvious chest discomfort or EKG changes to suggest an ischemic etiology. No known coronary disease. Lexiscan negative for ischemia Elevated troponins appear to be secondary to heart failure (9) Mass of left cardiac ventricle: Code(s): I51.89 - Other ill-defined heart diseases Status: Acute Assessment and Plan: Echo showed possible ruptured false tendon versus thrombus or vegetation. Looks like a ruptured chordae. No YEFRI indicated for further workup given no suspicion for endocarditis. (10) Elevated LFTs: Code(s): R79.89 - Other specified abnormal findings of blood chemistry Status: Acute Assessment and Plan: Elevated LFTs, with unusually high LDH. Abnormal CXR. May need further evaluation. Some may be secondary to acute CHF. Improving Subjective Date/time seen: 03/29/22 08:58 Cardiology follow up for CHF, atrial fibrillation Interval history: Feeling a little better this morning. No specific complaints at the time of my visit. Review of Systems Constitutional: Constitutional: Reports fatigue, Denies fever(s), Reports lethargy, Reports malaise and Reports weakness Cardiovascular: Cardiovascular: Denies chest pain, Denies pedal edema, Denies leg edema,
[2022-03-29 12:50] LABS: Glucose Point of Care 196 mg/dl (65-105)
[2022-03-29] MEDS: DIGOXIN 250 MCG TABLET PO (14:34)
[2022-03-29] MEDS: METOPROLOL TARTRATE 25 MG TABLET PO ×2 (16:12→20:18)
[2022-03-29 16:19] LABS: Glucose Point of Care 276 mg/dl (65-105)
--- NOTE | 2022-03-29 18:03 | PC.NURSE ---
This patient, Shannon Stahl, was transferred to [[facility] ] on 03/29/22 at 1750. Personal belongings sent with patient. Report given to [ Namita]. Appropriate documentation sent with patient.
--- NOTE | 2022-03-29 18:18 | P.PNIM_ITS ---
Progress Note: A&P Assessment and Plan (1) Elevated troponin: Code(s): R77.8 - Other specified abnormalities of plasma proteins Status: Acute Assessment and Plan: She is not having any chest pain whatsoever and EKG does not show acute ST segment changes. However her troponin is modestly elevated and she has marked elevation proBNP Cardiology has been consulted. EchoWith EF 30-35% which is worsened compared to previous levels Status post Lexiscan with EF 39% negative for ischemia Echo showed possible ruptured false tendon versus thrombus or vegetation. Suspected to be ruptured chordae tendineae. No YEFRI needed (2) Shortness of breath: Code(s): R06.02 - Shortness of breath Status: Acute Assessment and Plan: This has been an ongoing issue for the last week or so. I am not certain she has an active pulmonary infection though imaging suggests small bilateral pleural effusions with patchy infiltrates and/or atelectasis in the lower lung zones. With an elevated troponin and proBNP in addition to decreased activity recently, pulmonary embolism certainly is a consideration. She has a contrast allergy and at this time she was started on empiric Lovenox 1 milligram/kilogram b.i.d. Venous duplex positive for DVT of peroneal veins V/Q scan indeterminate Currently on Lovenox However now complicated with abdominal wall Hematoma.CT abdomen with subcutaneous fat stranding in the anterior abdominal wall and left is hematoma. H&H slightly dropped To 9.9 from 10.9 on 03/24. Monitor H&H has remained stable now. Mildly hypotensive throughout the day 03/25 added on midodrine. Anticoagulation held hemodynamics improved with anticoagulation held. Repeat venous duplex with persistent peroneal vein DVT which is a distal DVT. There is a V/Q scan which is indeterminate the possibility off PE remains. With continued drop in H&H persisted finding of peroneal vein DVT , discussed with General surgery for IVC filter placement. Since his DVT is a distal and no clear-cut evidence of PE no indication of anticoagulation if this can be approved. And hence she underwent CTA PE protocol which completed today showed no evidence of PE. However She has another indication for anticoagulation now due to atrial fibrillation. Started on DVT prophylaxis dose of apixaban 2.5 mg b.i.d. 03/27/2022. Will continue on the same until the H&H is stable and subsequently advanced to full does if this remains stable. Distal DVTs can be managed however with serial ultrasound to ensure no further propagation (3) Heart failure with reduced ejection fraction: Code(s): I50.20 - Unspecified systolic (congestive) heart failure Status: Acute Assessment and Plan: Most recent EF was measured at 45%. She does appear clinically compensated however her labs (elevated troponin, proBNP, and LFTs) suggests that she may have some congestion. She was given a dose of Lasix 40 milligrams IV x1 in the E R Continue diuresis as tolerated No shortness of breaths likely related to her PE also on farxiga added;losartan, metoprolol Continue to hold losartan metoprolol Lasix and spironolactone due to hypotension (4) Transaminitis: Code(s): R74.01 - Elevation of levels of liver transaminase levels Status: Acute Assessment and Plan: Etiology is not entirely clear. Her abdominal exam is benign. She gives no history to suggest acute hepatitis though will check hepatitis panel. Right upper quadrant ultrasound has been ordered for a.m.. With markedly elevated proBNP, she may have hepatic congestion from heart failure though she does not look acutely volume overloaded.
[2022-03-29 18:50] LABS: Glucose Point of Care 250 mg/dl (65-105)
[2022-03-29] MEDS: INSULIN ASPART (*BKC) 100 UNITS/ML SUB-Q (19:12)
[2022-03-29] MEDS: APIXABAN 5 MG TABLET PO (20:18)
[2022-03-29] MEDS: ACETAMINOPHEN 500 MG TABLET PO (20:18)
[2022-03-29 21:20] LABS: Glucose Point of Care 273 mg/dl (65-105)
[2022-03-30] VITALS (8 sets, daily range): BP systolic 107–117; BP diastolic 58–67; PULSE 64–97; RESP 12–20; TEMP 35.9–36.6; O2SAT 95–98
[2022-03-30 08:08] LABS: Glucose Point of Care 147 mg/dl (65-105)
[2022-03-30] MEDS: ATORVASTATIN 10 MG TABLET PO (08:22)
[2022-03-30] MEDS: CITALOPRAM HYDROBROMIDE 10 MG TABLET PO (08:22)
[2022-03-30] MEDS: MIDODRINE HCL 2.5 MG TABLET 5 MG PO ×3 (08:22→17:42)
[2022-03-30] MEDS: APIXABAN 5 MG TABLET PO ×2 (08:22→20:24)
[2022-03-30] MEDS: PANTOPRAZOLE SODIUM IV 40 MG VIAL IV PUSH ×2 (08:22→20:20)
[2022-03-30] MEDS: CHOLECALCIFEROL 1,000 UNITS TABLET 1000 UNITS PO (08:22)
[2022-03-30] MEDS: EMPAGLIFLOZIN 10 MG TABLET PO (08:22)
[2022-03-30] MEDS: METOPROLOL TARTRATE 25 MG TABLET PO ×2 (08:37→20:21)
[2022-03-30 09:08] LABS: Hematocrit 29.2 % (37.0-47.0); Hemoglobin 9.6 g/dL (12.0-15.0); Mean Corpuscular HGB Conc 32.9 g/dl (32-36); Mean Corpuscular Hemoglobin 34.9 pg (26-34); Mean Corpuscular Volume 106.2 fl (80-100); Mean Platelet Volume 9.6 fl (7.4-10.4); Platelet Count Result 149 k/mm3 (150-375); Red Blood Count 2.75 M/mm3 (4.2-5.4); Red Cell Distribution Width 20.9 % (11.5-14.5); White Blood Count 9.4 K/mm3 (4.5-10.0)
[2022-03-30 09:21] LABS: Anion Gap 12 mmol/L (8-16); Blood Urea Nitrogen 55 mg/dL (7-17); Carbon Dioxide 25 mmol/L (22-30); Chloride 100 mmol/L (98-107); Estimated CRCL calculation 34 ml/min; Estimated Glomerular Filt Rate 59; Glucose 198 mg/dL (65-110); Potassium 3.3 mmol/L (3.4-5.0); Sodium 137 mmol/L (137-145)
[2022-03-30 12:00] LABS: Glucose Point of Care 201 mg/dl (65-105)
[2022-03-30] MEDS: POTASSIUM CHLORIDE 20 MEQ TABLET PO (12:09)
[2022-03-30] MEDS: INSULIN ASPART (*BKC) 100 UNITS/ML SUB-Q (12:10)
[2022-03-30 16:44] LABS: Glucose Point of Care 194 mg/dl (65-105)
[2022-03-30] MEDS: CEPHALEXIN 500 MG CAPSULE PO ×2 (17:42→23:01)
[2022-03-30] MEDS: ACETAMINOPHEN 500 MG TABLET PO (20:24)
[2022-03-30 20:44] LABS: Glucose Point of Care 191 mg/dl (65-105)
[2022-03-31] VITALS (7 sets, daily range): BP systolic 104–110; BP diastolic 55–81; PULSE 72–123; RESP 16–18; TEMP 36–36.9; O2SAT 94–98
[2022-03-31] MEDS: LEVOTHYROXINE SODIUM 25 MCG TABLET PO (05:38)
[2022-03-31] MEDS: CEPHALEXIN 500 MG CAPSULE PO ×3 (05:38→17:09)
[2022-03-31 05:47] LABS: Hematocrit 29.5 % (37.0-47.0); Hemoglobin 9.7 g/dL (12.0-15.0); Mean Corpuscular HGB Conc 32.9 g/dl (32-36); Mean Corpuscular Volume 106.5 fl (80-100); Platelet Count Result 159 k/mm3 (150-375); Red Blood Count 2.77 M/mm3 (4.2-5.4); Red Cell Distribution Width 21.2 % (11.5-14.5); White Blood Count 9.7 K/mm3 (4.5-10.0)
[2022-03-31 06:00] LABS: Anion Gap 10 mmol/L (8-16); Blood Urea Nitrogen 56 mg/dL (7-17); Calcium 7.8 mg/dL (8.4-10.2); Carbon Dioxide 24 mmol/L (22-30); Chloride 103 mmol/L (98-107); Estimated CRCL calculation 38 ml/min; Estimated Glomerular Filt Rate > 60; Glucose 159 mg/dL (65-110); Magnesium 2.1 mg/dL (1.6-2.3); Potassium 3.5 mmol/L (3.4-5.0); Sodium 137 mmol/L (137-145)
[2022-03-31] MEDS: POTASSIUM CHLORIDE 20 MEQ TABLET PO (08:16)
[2022-03-31] MEDS: CITALOPRAM HYDROBROMIDE 10 MG TABLET PO (08:17)
[2022-03-31] MEDS: METOPROLOL TARTRATE 25 MG TABLET PO (08:17)
[2022-03-31] MEDS: EMPAGLIFLOZIN 10 MG TABLET PO (08:17)
[2022-03-31] MEDS: PANTOPRAZOLE SODIUM IV 40 MG VIAL IV PUSH ×2 (08:18→20:55)
[2022-03-31] MEDS: MIDODRINE HCL 2.5 MG TABLET 5 MG PO ×2 (08:18→12:53)
[2022-03-31] MEDS: ATORVASTATIN 10 MG TABLET PO (08:18)
[2022-03-31] MEDS: CHOLECALCIFEROL 1,000 UNITS TABLET 1000 UNITS PO (08:18)
[2022-03-31] MEDS: APIXABAN 5 MG TABLET PO ×2 (08:19→20:55)
[2022-03-31 08:24] LABS: Glucose Point of Care 174 mg/dl (65-105)
--- NOTE | 2022-03-31 11:16 | PCOTNOTE ---
Patient not appropriate for therapy. RN reports HR in 150s with taking pills sitting. RN notified and aware. Will follow.
--- NOTE | 2022-03-31 11:21 | PCNFU ---
Nutrition Follow-Up Complete: Inadequate oral intake related to poor appetite as evidence by self report and observed poor appetite, and 50% meal intake goal: Encourage meal intake >75% meal intake in complete intake of nutritional supplement patient has limited progress towards goal. We will continue current goal. Pt current nutrition is DBCC. Last recorded weight is 60.9 kg, no new weight to report. Bowel Motility:+Bm reported 03/27 Labs Reviewed:Glu 154, BUN 56, Hct 29.5,Hgb 9.7 Meds Noted:Lipitor,Lasix,Jardiance,Synthroid, Vit D, Protonix Skin: WNL Additional Notes: Patient current with diabetic diet. Oral Intake has been poor, 5-25% of meals. Patient has been receiving Ensure compact, requesting chocolate for additional 220 kcals and 9 gms protein. Agree with diet orders. follow up in 5 days monitor appetite, meal and nutritional supplement intake, wt and labs
[2022-03-31 11:48] LABS: Glucose Point of Care 191 mg/dl (65-105)
--- NOTE | 2022-03-31 15:05 | PM.PNCARD ---
Progress Note: A&P Assessment and Plan (1) Atrial fibrillation: Code(s): I48.91 - Unspecified atrial fibrillation Status: Acute (2) Cardiomyopathy: Code(s): I42.9 - Cardiomyopathy, unspecified Status: Acute (3) Mitral valve replaced: Code(s): Z95.2 - Presence of prosthetic heart valve Status: Acute Plan 86-year-old lady with: Heart failure with reduced ejection fraction currently she is not at all volume overloaded. I would like to recommend attempting to reinstitute very gently some guideline directed medical therapy in getting rid of the midodrine. I am going to transition her metoprolol to low-dose of metoprolol succinate. Start a very low dose of Entresto and resume her spironolactone. Hopefully these will measures will be tolerated adequately and not result in problematic hypotension. The patient does not have an obvious or apparent cardiac reason that she would need to be transferred to a higher level of care such as [place]. Made it clear to the patient's daughter that I do not believe she requires transfer to [place] for management of her CHF at this time. Her there is some mild MR regarding her mitral valve bioprosthesis but the valve itself otherwise is functioning reasonably well. He does not require a valve intervention at this time. Will follow the patient of course while she is here at [facility] if she does get transferred to [place] that will Need to be be arranged by the hospitalist service. Ray Woodruff MD [facility] Subjective Date/time seen: date of service:03/31/22 15:05 Interval history: Follow-up visit in this 86-year-old woman with: Heart failure with reduced ejection fraction, chronic atrial fibrillation and previous mitral valve replacement bioprosthesis. Patient has been hospitalized now for about 11 days with weakness and some evidence of decompensated heart failure. Currently her CHF medications are on hold except for the metoprolol tartrate and she has been placed on some midodrine several days ago because of hypotension. Hypotension Is suspected to be due to over diuresis with furosemide which has been stopped. patient is a comfortable lying supine in bed breathing room air in no respiratory distress. Long conversation with the daughter who is in the room visiting. She indicates she in the family/ children have decided they would like her their mother transferred to [facility] for another opinion about her management. Exam Const: General: comfortable and no acute distress Other: Frail elderly lady no distress denies dyspnea currently HENMT: Mouth: Yes dry mucous membranes Eyes: Sclera: sclerae normal Neck: Neck: supple and no JVD Resp: Effort & Inspection: normal respiratory effort Auscultation: clear to auscultation bilaterally Cardio: Rhythm: abnormal rhythm irregularly irregular GI: GI Palp: Yes Soft to palpation Auscultation: normal bowel sounds Skin: General skin exam: normal color Extrem: General: normal to inspection Other: no edema at all at this time Objective Data Vital Signs Vital Signs: Vital Signs - 24 hr 03/30/22 16:00 03/30/22 16:00 03/30/22 20:21 Temperature 36.5 C Pulse Rate 90 75 64 Respiratory Rate 14 Blood Pressure 114/67 Pulse Oximetry 95 Oxygen Delivery 03/30/22 20:00 03/30/22 20:20 03/30/22 20:00 Temperature 35.9 C L Pulse Rate 83 83 Respiratory Rate 18 Blood Pressure 107/67 Pulse Oximetry 96 Oxygen Delivery Room Air 03/31/22 00:00 03/31/22 00:00 03/31/22 04:00 Temperature 36.0 C L Pulse Rate 78 72 90 Respiratory Rate 18 Blood Pressure 104/69 Pulse Oximetry 97 Oxygen Delivery 03/31/22 04:00 03/31/22 08:17 03/31/22 08:00 Temperature 36.3 C L 36.4 C Pulse Rate 78 105 H 76 Respiratory Rate 18 18 Blood Pressure 110/60 109/62 Pulse Oximetry 96 96 Oxygen Delivery 03/31/22 08:00 03/31/22 08:30 03/31/22 12:00 Temp
[2022-03-31 17:05] LABS: Glucose Point of Care 268 mg/dl (65-105)
[2022-03-31] MEDS: INSULIN ASPART (*BKC) 100 UNITS/ML SUB-Q (17:09)
[2022-03-31 20:47] LABS: Glucose Point of Care 371 mg/dl (65-105)
[2022-03-31] MEDS: SACUBITRIL/VALSARTAN 12-13 MG TABLET 1 TAB PO (20:55)
[2022-03-31] MEDS: ACETAMINOPHEN 500 MG TABLET PO (20:55)
[2022-04-01] VITALS (12 sets, daily range): BP systolic 86–105; BP diastolic 48–58; PULSE 61–140; RESP 16–18; TEMP 35.9–37.4; O2SAT 93–98
[2022-04-01] MEDS: CEPHALEXIN 500 MG CAPSULE PO ×4 (00:17→17:06)
[2022-04-01] MEDS: METOPROLOL TARTRATE INJ 5 MG/5 ML VIAL IV PUSH (02:06)
[2022-04-01 05:17] LABS: Hematocrit 30.2 % (37.0-47.0); Hemoglobin 9.8 g/dL (12.0-15.0); Mean Corpuscular HGB Conc 32.5 g/dl (32-36); Mean Corpuscular Hemoglobin 34.9 pg (26-34); Mean Corpuscular Volume 107.5 fl (80-100); Mean Platelet Volume 9.9 fl (7.4-10.4); Platelet Count Result 178 k/mm3 (150-375); Red Blood Count 2.81 M/mm3 (4.2-5.4); Red Cell Distribution Width 21.8 % (11.5-14.5); White Blood Count 11.9 K/mm3 (4.5-10.0)
[2022-04-01 05:41] LABS: Anion Gap 13 mmol/L (8-16); Blood Urea Nitrogen 54 mg/dL (7-17); Carbon Dioxide 20 mmol/L (22-30); Chloride 103 mmol/L (98-107); Estimated CRCL calculation 34 ml/min; Estimated Glomerular Filt Rate 59; Glucose 247 mg/dL (65-110); Potassium 3.9 mmol/L (3.4-5.0); Sodium 136 mmol/L (137-145)
[2022-04-01] MEDS: METOPROLOL SUCCINATE EXT REL 25 MG TABCR PO (06:21)
[2022-04-01 08:30] LABS: Glucose Point of Care 303 mg/dl (65-105)
[2022-04-01] MEDS: INSULIN ASPART (*BKC) 100 UNITS/ML SUB-Q ×3 (08:30→17:18)
[2022-04-01] MEDS: EMPAGLIFLOZIN 10 MG TABLET PO (08:34)
[2022-04-01] MEDS: PANTOPRAZOLE SODIUM IV 40 MG VIAL IV PUSH ×2 (08:34→21:07)
[2022-04-01] MEDS: CITALOPRAM HYDROBROMIDE 10 MG TABLET PO (08:35)
[2022-04-01] MEDS: CHOLECALCIFEROL 1,000 UNITS TABLET 1000 UNITS PO (08:35)
[2022-04-01] MEDS: APIXABAN 5 MG TABLET PO ×2 (08:35→21:07)
[2022-04-01] MEDS: ATORVASTATIN 10 MG TABLET PO (08:35)
[2022-04-01] MEDS: SPIRONOLACTONE 12.5 MG TABLET PO (11:03)
[2022-04-01] MEDS: SACUBITRIL/VALSARTAN 12-13 MG TABLET 1 TAB PO ×2 (11:03→21:07)
[2022-04-01 12:13] LABS: Glucose Point of Care 315 mg/dl (65-105)
[2022-04-01 17:16] LABS: Glucose Point of Care 370 mg/dl (65-105)
[2022-04-01 20:36] LABS: Glucose Point of Care 343 mg/dl (65-105)
[2022-04-01] MEDS: ACETAMINOPHEN 500 MG TABLET PO (21:07)
[2022-04-02] VITALS (20 sets, daily range): BP systolic 81–117; BP diastolic 33–83; PULSE 73–160; RESP 12–22; TEMP 36.3–37; O2SAT 95–98
[2022-04-02 05:09] LABS: Hematocrit 29.8 % (37.0-47.0); Hemoglobin 9.8 g/dL (12.0-15.0); Mean Corpuscular HGB Conc 32.9 g/dl (32-36); Mean Corpuscular Hemoglobin 35.4 pg (26-34); Mean Corpuscular Volume 107.6 fl (80-100); Mean Platelet Volume 10.4 fl (7.4-10.4); Platelet Count Result 176 k/mm3 (150-375); Red Blood Count 2.77 M/mm3 (4.2-5.4); Red Cell Distribution Width 22.5 % (11.5-14.5); White Blood Count 12.6 K/mm3 (4.5-10.0)
[2022-04-02 05:31] LABS: Anion Gap 8 mmol/L (8-16); Blood Urea Nitrogen 60 mg/dL (7-17); Carbon Dioxide 23 mmol/L (22-30); Chloride 103 mmol/L (98-107); Estimated CRCL calculation 34 ml/min; Estimated Glomerular Filt Rate 59; Glucose 244 mg/dL (65-110); Sodium 134 mmol/L (137-145)
[2022-04-02] MEDS: CEPHALEXIN 500 MG CAPSULE PO ×2 (05:54)
[2022-04-02] MEDS: LEVOTHYROXINE SODIUM 25 MCG TABLET PO (05:54)
[2022-04-02] MEDS: CITALOPRAM HYDROBROMIDE 10 MG TABLET PO (07:44)
[2022-04-02] MEDS: ATORVASTATIN 10 MG TABLET PO (07:44)
[2022-04-02] MEDS: EMPAGLIFLOZIN 10 MG TABLET PO (07:44)
[2022-04-02] MEDS: METOPROLOL SUCCINATE EXT REL 25 MG TABCR PO (07:44)
[2022-04-02] MEDS: PANTOPRAZOLE SODIUM IV 40 MG VIAL IV PUSH ×2 (07:45→20:37)
[2022-04-02] MEDS: APIXABAN 5 MG TABLET PO ×2 (07:45→20:36)
[2022-04-02] MEDS: CHOLECALCIFEROL 1,000 UNITS TABLET 1000 UNITS PO (07:45)
[2022-04-02] MEDS: SACUBITRIL/VALSARTAN 12-13 MG TABLET 1 TAB PO ×2 (07:45→20:36)
[2022-04-02] MEDS: SPIRONOLACTONE 12.5 MG TABLET PO (07:45)
[2022-04-02 08:21] LABS: Glucose Point of Care 290 mg/dl (65-105)
--- NOTE | 2022-04-02 09:17 | PM.PNCARD ---
Progress Note: A&P Assessment and Plan (1) Atrial fibrillation: Code(s): I48.91 - Unspecified atrial fibrillation Status: Acute (2) DVT (deep venous thrombosis): Code(s): I82.409 - Acute embolism and thrombosis of unspecified deep veins of unspecified lower extremity Status: Acute (3) Cardiomyopathy: Code(s): I42.9 - Cardiomyopathy, unspecified Status: Acute (4) Acute on chronic combined systolic and diastolic CHF (congestive heart failure): Code(s): I50.43 - Acute on chronic combined systolic (congestive) and diastolic (congestive) heart failure Status: Acute Plan Patient remains in AFIB with RVR, telemetry also notable for flutter waves. Patient denies any chest pain, shortness of breath, or feeling palpitations this morning. Will increase Metoprolol to 50mg once daily for additional heart rate control. Given heart rate in the 140s right now, will give an Amio bolus. Patient will need to be transferred to the IMU for this (discussed with hospitalist Dr. Pruett). Continue Eliquis. Continue low-dose Entresto and Aldactone. Subjective Date/time seen: 04/02/22 09:17 Interval history: Patient remains in AFIB with RVR. Patient denies chest pain, shortness of breath, or feeling palpitations this morning. Review of Systems Review of Systems: All systems reviewed & are unremarkable except as noted in HPI and below (subjective) Exam Const: General: no acute distress Neck: Neck: no JVD Resp: Effort & Inspection: normal respiratory effort Auscultation: diminished lung sounds Cardio: Rate: tachycardic Rhythm: abnormal rhythm irregularly irregular Heart sounds: no murmurs Neuro: Speech: normal speech Extrem: General: no edema Objective Data Vital Signs Vital Signs: Vital Signs - 24 hr 04/01/22 10:44 04/01/22 12:04 04/01/22 15:01 Temperature 35.9 C L Pulse Rate 122 H 103 H Respiratory Rate 16 Blood Pressure 92/56 L 86/52 L Pulse Oximetry 95 Oxygen Delivery 04/01/22 16:00 04/01/22 20:02 04/01/22 20:00 Temperature 37.4 C Pulse Rate 130 H 125 H Respiratory Rate 16 Blood Pressure 92/48 L Pulse Oximetry 96 Oxygen Delivery Room Air 04/01/22 20:00 04/02/22 00:00 04/02/22 00:00 Temperature 37.0 C Pulse Rate 108 H 125 H 136 H Respiratory Rate 12 Blood Pressure 100/55 L Pulse Oximetry 96 Oxygen Delivery 04/02/22 03:30 04/02/22 04:00 04/02/22 04:00 Temperature 36.8 C Pulse Rate 128 H 136 H Respiratory Rate 16 Blood Pressure 105/56 L 105/56 L Pulse Oximetry 97 Oxygen Delivery Intake/Output Intake/Output: Intake & Output 03/30/22 03/31/22 04/01/22 04/02/22 23:59 23:59 23:59 23:59 Intake Total 970 1080 1140 400 Output Total 1050 800 650 Balance -80 280 490 400 Meds/Results Medications: Active Medications Generic Name Dose Route Start Last Admin Trade Name Freq PRN Reason Stop Dose Admin Acetaminophen 650 mg 03/24/22 16:02 03/26/22 17:21 Acetaminophen 325 Mg Tablet PO 650 mg Q4H PRN Administration Mild Pain (1-3) or Fever Acetaminophen 500 mg 03/27/22 21:00 04/01/22 21:07 Acetaminophen 500 Mg Tablet PO 500 mg HS VENITA Administration Apixaban 5 mg 03/29/22 21:00 04/02/22 07:45 Apixaban 5 Mg Tablet PO 5 mg Q12HR VENITA Administration Atorvastatin Calcium 10 mg 03/21/22 09:00 04/02/22 07:44 Atorvastatin 10 Mg Tablet PO 10 mg DAILY VENITA Administration Cephalexin HCl 500 mg 03/30/22 18:00 04/02/22 05:54 Cephalexin 500 Mg Capsule PO 500 mg Q6HR VENITA Administration Citalopram Hydrobromide 10 mg 03/21/22 09:00 04/02/22 07:44 Citalopram Hydrobromide 10 Mg Tablet PO 10 mg DAILY VENITA Administration Dextrose 12.5 gm 03/23/22 10:38 Dextrose 50% 25 Gm/50 Ml Syringe IV PUSH PRN PRN Hypoglycemia Protocol Empagliflozin 10 mg 03/23/22 09:00 04/02/22 07:44 Empagliflozin 10 Mg Tablet PO 10 mg D
[2022-04-02] MEDS: INSULIN ASPART (*BKC) 100 UNITS/ML SUB-Q ×2 (09:28→17:30)
[2022-04-02] MEDS: AMIODARONE 150 MG/D5W 100 ML 150 MG/100 ML BAG 600 MG IV CONT (10:31)
[2022-04-02 12:06] LABS: Glucose Point of Care 417 mg/dl (65-105)
[2022-04-02 12:06] LABS: Glucose Point of Care 430 mg/dl (65-105)
[2022-04-02] MEDS: INSULIN GLARGINE (*BKC) 100 UNITS/ML 20 UNITS SUB-Q (12:24)
[2022-04-02] MEDS: INSULIN ASPART (*BKC) 100 UNITS/ML 10 UNITS SUB-Q (12:26)
[2022-04-02 17:09] LABS: Glucose Point of Care 298 mg/dl (65-105)
[2022-04-02 20:11] LABS: Glucose Point of Care 359 mg/dl (65-105)
[2022-04-02] MEDS: ACETAMINOPHEN 500 MG TABLET PO (20:36)
[2022-04-02] MEDS: INSULIN ASPART (*BKC) 100 UNITS/ML 6 UNITS SUB-Q (20:38)
[2022-04-02 23:42] LABS: Glucose Point of Care 246 mg/dl (65-105)
[2022-04-03] VITALS (20 sets, daily range): BP systolic 85–132; BP diastolic 45–119; PULSE 52–117; RESP 14–20; TEMP 35.6–37.3; O2SAT 95–100
[2022-04-03] MEDS: INSULIN ASPART (*BKC) 100 UNITS/ML SUB-Q (00:35)
[2022-04-03 04:57] LABS: Hemoglobin 9.8 g/dL (12.0-15.0); Mean Corpuscular HGB Conc 32.7 g/dl (32-36); Mean Corpuscular Hemoglobin 35.1 pg (26-34); Mean Corpuscular Volume 107.5 fl (80-100); Mean Platelet Volume 10.3 fl (7.4-10.4); Platelet Count Result 166 k/mm3 (150-375); Red Blood Count 2.79 M/mm3 (4.2-5.4); Red Cell Distribution Width 22.7 % (11.5-14.5); White Blood Count 11.8 K/mm3 (4.5-10.0)
[2022-04-03 05:09] LABS: Anion Gap 5 mmol/L (8-16); Blood Urea Nitrogen 59 mg/dL (7-17); Calcium 8.2 mg/dL (8.4-10.2); Carbon Dioxide 26 mmol/L (22-30); Chloride 107 mmol/L (98-107); Estimated CRCL calculation 38 ml/min; Estimated Glomerular Filt Rate > 60; Glucose 158 mg/dL (65-110); Potassium 3.9 mmol/L (3.4-5.0); Sodium 138 mmol/L (137-145)
[2022-04-03 08:29] LABS: Glucose Point of Care 143 mg/dl (65-105)
[2022-04-03] MEDS: ATORVASTATIN 10 MG TABLET PO (08:48)
[2022-04-03] MEDS: CHOLECALCIFEROL 1,000 UNITS TABLET 1000 UNITS PO (08:48)
[2022-04-03] MEDS: CITALOPRAM HYDROBROMIDE 10 MG TABLET PO (08:48)
[2022-04-03] MEDS: SPIRONOLACTONE 12.5 MG TABLET PO (08:48)
[2022-04-03] MEDS: SACUBITRIL/VALSARTAN 12-13 MG TABLET 1 TAB PO (08:48)
[2022-04-03] MEDS: EMPAGLIFLOZIN 10 MG TABLET PO (08:48)
[2022-04-03] MEDS: PANTOPRAZOLE SODIUM IV 40 MG VIAL IV PUSH ×2 (08:48→21:31)
[2022-04-03] MEDS: APIXABAN 5 MG TABLET PO ×2 (08:48→21:31)
[2022-04-03] MEDS: METOPROLOL SUCCINATE EXT REL 50 MG TABCR PO (08:48)
--- NOTE | 2022-04-03 11:01 | PM.PNCARD ---
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 She has been started on low doses of medical therapy for heart failure again will starting last Sunday. She is tolerating this without any hypotension. Unfortunately but not surprisingly she developed atrial fib/flutter over the weekend. She is anticoagulated already with apixaban. I am going to start oral amiodarone today. She will benefit hemodynamically if sinus rhythm can be maintained. Apparently there are no ongoing conversations about transferring this patient to [place] which the family was interested in last week. Once again as I mentioned on Sunday I do not see a cardiac reason specifically that that would be necessary/advantageous Ray Woodruff MD [facility] Subjective Date/time seen: Date of service: 04/03/22 11:01 Interval history: Patient now in IMU transferred here from the weekend because of the development of AF/RVR. Telemetry shows atrial flutter this morning with heart rate in the high 90s to low 100s. Patient lying supine in bed no respiratory distress. Received 1 bolus of IV amiodarone yesterday. Exam Const: General: cooperative, comfortable and no acute distress; No confusion Orientation/consciousness: oriented to person, patient oriented x3 and No confusion Other: Frail elderly lady no distress denies dyspnea currently HENMT: Mouth: Yes moist mucous membranes and Yes dry mucous membranes Eyes: Sclera: sclerae normal EOM: EOMs intact bilaterally Neck: Neck: supple and no JVD Thyroid: thyroid normal Resp: Effort & Inspection: normal respiratory effort Auscultation: clear to auscultation bilaterally, rales and diminished lung sounds Other: Only a few scattered rales in the bases, improved Cardio: Rate: regular rate and tachycardic Rhythm: regular rhythm and abnormal rhythm irregularly irregular Heart sounds: no murmurs GI: Inspection: normal to inspection Auscultation: normal bowel sounds Other: Has abdominal wall ecchymosis, small hematoma Skin: General skin exam: normal color, no rashes or lesions noted and lesion noted Lesions: lesion noted Other: Abdominal wall ecchymosis with small hematoma Neuro: General: oriented to person, patient oriented x3 and No confusion Speech: normal speech Other: Decreased memory Extrem: General: normal to inspection and no edema Right lower extremity: no edema Left lower extremity: no edema Other: no edema at all at this time Psych: Appearance: grossly normal Mental Status: mental status grossly normal Objective Data Vital Signs Vital Signs: Vital Signs - 24 hr 04/02/22 11:34 04/02/22 12:00 04/02/22 15:54 Temperature 36.7 C 36.4 C L Pulse Rate 130 H 99 95 Respiratory Rate 16 20 18 Blood Pressure 114/76 117/83 89/48 L Pulse Oximetry 95 97 96 Oxygen Delivery Fraction of Inspired Oxygen 04/02/22 14:00 04/02/22 16:00 04/02/22 18:00 Temperature Pulse Rate 106 H 125 H 128 H Respiratory Rate Blood Pressure Pulse Oximetry Oxygen Delivery Fraction of Inspired Oxygen 04/02/22 16:00 04/02/22 20:14 04/02/22 20:00 Temperature 36.4 C Pulse Rate 121 H 108 H Respiratory Rate 16 Blood Pressure 96/46 L Pulse Oximetry 95 Oxygen Delivery Room Air Fraction of Inspired Oxygen 04/02/22 20:00 04/02/22 22:00 04/02/22 23:48 Temperature 36.3 C L Pulse Rate 121 H 104 H 73 Respiratory Rate 16 14 Blood Pressure 89/64 L Pulse Oximetry 95 98 Oxygen Delivery Room Air Fraction of Inspired Oxygen 21 04/03/22 00:00 04/03/22 0
[2022-04-03 12:48] LABS: Glucose Point of Care 141 mg/dl (65-105)
[2022-04-03 16:49] LABS: Glucose Point of Care 147 mg/dl (65-105)
--- NOTE | 2022-04-03 18:08 | PM.IMPN ---
Subjective Date/time seen: 04/03/22 18:08 04/03/2022 interval history: on 03/28/2022? She went into AFib with RVR.? She was given IV digoxin.? Her rate has been intermittently up and down.? both HR and BP are stable, ? she is asymptomatic though denies any increased shortness of breath or chest pain.? Denies any palpitation as well.? on 03/28 She had a CTA no? PE.? She underwent contrast allergy prep with prednisone? night before. patient had been hypotensive and cardiology held her losartan, added midodrine, today both HR and BP are stable, patient remains clinically stable, denies any CP, palpitation, or shortness of breath. on 03/30/2022 spoke with one of the daughter to consider comfort care for the patient, on 03/31/2022 daughter requested? she wants to transfer patient to [facility] for second opinion, spoke with her wide area network engineer, he recommneded to stop midodrin as patient BP is stable and switch her metoprolol to low dose metoprolol succinate, and added low dose Entresto, the wide area network engineer also spoke with patient daughter to monitor patient here and not need transfer patient to the [facility],?on 04/02 patient again was tachycardia and Dr. Escobar recommended to transfer patient to IMU and gave amiodoran bolus to bring HR down,? today patient is seen by Dr. Woodruff and stopped amiodorane drip stop and started on oral amiodorane, patient is clinically stable however patient HR is high, and BP is soft,?patient daughter is present in the room, and trying to feed her, will have PT/OT work with the patient and will monitor. Objective Data Vital Signs Vital Signs: Vital Signs - 24 hr 04/02/22 20:14 04/02/22 20:00 04/02/22 20:00 Temperature 97.6 F Pulse Rate 121 H 108 H 121 H Respiratory Rate 16 16 Blood Pressure 96/46 L Pulse Oximetry 95 95 Oxygen Delivery Room Air Fraction of Inspired Oxygen 21 04/02/22 22:00 04/02/22 23:48 04/03/22 00:00 Temperature 97.3 F L Pulse Rate 104 H 73 105 H Respiratory Rate 14 Blood Pressure 89/64 L Pulse Oximetry 98 Oxygen Delivery Fraction of Inspired Oxygen 04/03/22 00:00 04/03/22 02:00 04/03/22 04:00 Temperature Pulse Rate 73 86 94 Respiratory Rate 14 Blood Pressure Pulse Oximetry 98 Oxygen Delivery Room Air Fraction of Inspired Oxygen 21 04/03/22 04:00 04/03/22 04:00 04/03/22 07:24 Temperature 99.1 F 96.1 F L Pulse Rate 86 93 107 H Respiratory Rate 14 16 20 Blood Pressure 86/56 L 132/119 H Pulse Oximetry 98 98 98 Oxygen Delivery Room Air Fraction of Inspired Oxygen 21 04/03/22 06:00 04/03/22 07:47 04/03/22 08:48 Temperature Pulse Rate 105 H 108 H Respiratory Rate Blood Pressure 95/67 L Pulse Oximetry Oxygen Delivery Fraction of Inspired Oxygen 04/03/22 08:00 04/03/22 08:00 04/03/22 10:00 Temperature Pulse Rate 102 H 114 H Respiratory Rate Blood Pressure Pulse Oximetry Oxygen Delivery Room Air Fraction of Inspired Oxygen 04/03/22 11:59 04/03/22 12:00 04/03/22 12:00 Temperature 97.0 F L Pulse Rate 83 93 Respiratory Rate 20 Blood Pressure 85/49 L Pulse Oximetry 95 Oxygen Delivery Room Air Fraction of Inspired Oxygen 04/03/22 15:07 04/03/22 16:49 Temperature 97.7 F Pulse Rate 52 L Respiratory Rate 20 Blood Pressure 87/45 L Pulse Oximetry 95 95 Oxygen Delivery Room Air Fraction of Inspired Oxygen Intake/Output Intake/Output: Intake & Output 03/31/22 04/01/22 04/02/22 04/03/22 23:59 23:59 23:59 23:59 Intake Total 1080 1140 1160 250 Output Total 800 677 696 9050 Balance 280 490 660 -9120 Meds/Results Medications: Active Medications Generic Name Dose Route Start Last Admin Trade Name Freq PRN Reason Stop Dose Admin Acetaminophen 650 mg 03/24/22 16:02 03/26/22 17:21 Acetaminophen 325 Mg Tablet PO 650 mg Q4H PRN Administration Mild Pain (1-3) or Fever Acetaminophen 500 mg 03/27/22 21:00 04/02/22 20:36
[2022-04-03] MEDS: AMIODARONE HCL 200 MG TABLET 400 MG PO (18:38)
[2022-04-03 20:28] LABS: Glucose Point of Care 198 mg/dl (65-105)
[2022-04-03] MEDS: ACETAMINOPHEN 500 MG TABLET PO (21:31)
[2022-04-03 23:15] LABS: Glucose Point of Care 207 mg/dl (65-105)
[2022-04-04] VITALS (12 sets, daily range): BP systolic 68–83; BP diastolic 40–59; PULSE 91–145; RESP 14–26; TEMP 36–36.9; O2SAT 94–99
[2022-04-04 05:17] LABS: Hematocrit 33.8 % (37.0-47.0); Hemoglobin 9.9 g/dL (12.0-15.0); Mean Corpuscular HGB Conc 29.3 g/dl (32-36); Mean Corpuscular Hemoglobin 35.1 pg (26-34); Mean Corpuscular Volume 119.9 fl (80-100); Mean Platelet Volume 10.8 fl (7.4-10.4); Platelet Count Result 179 k/mm3 (150-375); Red Blood Count 2.82 M/mm3 (4.2-5.4); Red Cell Distribution Width 23.6 % (11.5-14.5); White Blood Count 11.6 K/mm3 (4.5-10.0)
[2022-04-04] MEDS: LEVOTHYROXINE SODIUM 25 MCG TABLET PO (05:46)
[2022-04-04 07:00] LABS: Anion Gap 10 mmol/L (8-16); Blood Urea Nitrogen 63 mg/dL (7-17); Calcium 7.8 mg/dL (8.4-10.2); Carbon Dioxide 25 mmol/L (22-30); Chloride 103 mmol/L (98-107); Estimated CRCL calculation 34 ml/min; Estimated Glomerular Filt Rate 59; Glucose 203 mg/dL (65-110); Potassium 3.9 mmol/L (3.4-5.0); Sodium 138 mmol/L (137-145)
[2022-04-04 08:41] LABS: Glucose Point of Care 219 mg/dl (65-105)
[2022-04-04] MEDS: INSULIN ASPART (*BKC) 100 UNITS/ML SUB-Q (10:28)
[2022-04-04] MEDS: PANTOPRAZOLE SODIUM IV 40 MG VIAL IV PUSH (10:29)
[2022-04-04] MEDS: ATORVASTATIN 10 MG TABLET PO (10:32)
[2022-04-04] MEDS: EMPAGLIFLOZIN 10 MG TABLET PO (10:32)
[2022-04-04] MEDS: CHOLECALCIFEROL 1,000 UNITS TABLET 1000 UNITS PO (10:33)
[2022-04-04] MEDS: CITALOPRAM HYDROBROMIDE 10 MG TABLET PO (10:33)
[2022-04-04] MEDS: APIXABAN 5 MG TABLET PO (10:33)
--- NOTE | 2022-04-04 12:33 | PM.PNCARD ---
Progress Note: A&P Assessment and Plan (1) Acute on chronic combined systolic and diastolic CHF (congestive heart failure): Code(s): I50.43 - Acute on chronic combined systolic (congestive) and diastolic (congestive) heart failure Status: Acute Assessment and Plan: Patient has a history of CHF which has been stable for a long time but has been admitted now with acute on chronic systolic and diastolic CHF. Diuresed and improved. Lexiscan excluded a significant ischemic component. Echo shows worsening of left ventricular function, EF 30-35% by echo and 39% by Lexiscan Daily BMP; hypokalemia improved. Have made multiple attempts to restart GDMT but she is unable to tolerate even low doses due to hypotension. Therefore, will not resume these medications due to intolerance. Monitor closely for volume overload, may require some diuresis (2) Atrial fibrillation: Code(s): I48.91 - Unspecified atrial fibrillation Status: Acute Assessment and Plan: Developed AF with RVR over the weekend and was given amiodarone bolus, now on oral amiodarone. Systemic a/c with apixaban. (3) Hypotension: Code(s): I95.9 - Hypotension, unspecified Status: Acute (4) Hematoma: Code(s): T14.8XXA - Other injury of unspecified body region, initial encounter Status: Acute Assessment and Plan: Hematoma of abdominal wall noted. H&H stable CT showed no internal bleeding (5) Cardiomyopathy: Code(s): I42.9 - Cardiomyopathy, unspecified Status: Acute Assessment and Plan: EF 30-39% (6) DVT (deep venous thrombosis): Code(s): I82.409 - Acute embolism and thrombosis of unspecified deep veins of unspecified lower extremity Status: Acute Assessment and Plan: Has a DVT of the peroneal veins Eliquis held due to drop in H&H and abdominal wall hematoma/ecchymosis. This has been restarted. Low risk for PE Consider re-evaluation at a later date Mobilize as able with PT/OT (7) History of mitral valve repair: Code(s): Z98.890 - Other specified postprocedural states Status: Acute Assessment and Plan: History mitral valve repair, with mild to moderate mitral regurgitation on echo done September 2021. Stable mitral valve repair (8) Elevated troponin: Code(s): R77.8 - Other specified abnormalities of plasma proteins Status: Acute Assessment and Plan: Elevated troponin. No obvious chest discomfort or EKG changes to suggest an ischemic etiology. No known coronary disease. Lexiscan negative for ischemia Elevated troponins appear to be secondary to heart failure (9) Mass of left cardiac ventricle: Code(s): I51.89 - Other ill-defined heart diseases Status: Acute Assessment and Plan: Echo showed possible ruptured false tendon versus thrombus or vegetation. Looks like a ruptured chordae. No YEFRI indicated for further workup given no suspicion for endocarditis. (10) Elevated LFTs: Code(s): R79.89 - Other specified abnormal findings of blood chemistry Status: Acute Subjective Date/time seen: 04/04/22 11:33 Does not have any complaints today, states she feels the same. Very sleepy. Denies chest pain, palpitations, or shortness of breath. Review of Systems Review of Systems: All systems reviewed & are unremarkable except as noted in HPI and below (subjective) Constitutional: Constitutional: Reports fatigue, Denies fever(s), Reports lethargy, Reports malaise and Reports weakness Cardiovascular: Cardiovascular: Denies chest pain, Denies pedal edema, Denies leg edema, Denies lightheadedness, Denies palpitations, Denies dyspnea and Denies dyspnea on exertion Respiratory: Respiratory: Denies chest congestion, Denies dyspnea and Denies dyspnea on exertion Gastrointestinal: Gastrointestinal: Denies abdominal pain and Denies hematochezia Genitourinary: Genitourinary: Denies dysuria
[2022-04-04 12:38] LABS: Glucose Point of Care 281 mg/dl (65-105)
[2022-04-04] MEDS: MORPHINE SULFATE (*CRX) 2 MG/ML INJ IV PUSH (13:17)
[2022-04-04] MEDS: LORazepam INJ (*CRX) 2 MG/ML VIAL IV PUSH (13:17)
--- NOTE | 2022-04-04 14:00 | PCNFU ---
Nutrition Follow-Up Complete: Inadequate oral intake related to poor appetite as evidence by self report and observed poor appetite, and 50% meal intake Encourage meal intake >75% meal intake in complete intake of nutritional supplement Goal:goal not met. continue original goal Pt current nutrition is Regular diet, ensure compact TID. Nutrition recommendation: switch supplement to glucerna BID, provides: 220calores, 26g carbs, 10g protein Last recorded weight is 64.5 kg. Bowel Motility:last BM 04/01 Labs Reviewed:Hgb: 9.4, Hct: 33.8, BUN: 63, Glu: 203 Meds Noted: lipitor, celexa, lasix, vit d, protonix Skin: Wound on buttock and sacrum, per wound nurse these are not pressure injures. Additional Notes: Pt average food intake 30% average. Daughter says pt's appetite is slowly improving. daughter is trying to feed pt fav foods like soups and yogurt. Daughter reported that previous day she was with her mom/pt all day and only 1 ensure compact was sent. Per EMR 03/20 wt of 150lbs and current wt: 142 possible 8lbs (5%) wt loss in 2 weeks. follow up in 7 days monitor appetite, meal and nutritional supplement intake, wt and labs
--- NOTE | 2022-04-04 14:22 | PCNSR ---
On 04/04/22, the student, Ramesh Lockwood, provided care and completed [facility] [facility] documentation on this patient. I have reviewed the student's documentation and agree with the findings.
--- NOTE | 2022-04-04 15:19 | PC.NURSE ---
Pt arrived to floor via bed from IMU. Patient and family oriented to room.
--- NOTE | 2022-04-04 15:24 | PC.NURSE ---
This patient, Shannon Stahl, was transferred to [facility] beds at the [facility] on 04/04/22 at 1513. Personal belongings sent with patient. Report given to Trudi ALBERTS. Appropriate documentation sent with patient.
--- NOTE | 2022-04-04 16:01 | PM.IMPN ---
Progress Note: A&P Assessment and Plan (1) Elevated troponin: Code(s): R77.8 - Other specified abnormalities of plasma proteins Status: Acute Assessment and Plan: She is not having any chest pain whatsoever and EKG does not show acute ST segment changes. However her troponin is modestly elevated and she has marked elevation proBNP Cardiology has been consulted. EchoWith EF 30-35% which is worsened compared to previous levels Status post Lexiscan with EF 39% negative for ischemia Echo showed possible ruptured false tendon versus thrombus or vegetation. Suspected to be ruptured chordae tendineae. No YEFRI needed 04/04/2022 interval history: on 03/28/2022? She went into AFib with RVR.? She was given IV digoxin.? Her rate has been intermittently up and down.? both HR and BP are stable, ? she is asymptomatic though denies any increased shortness of breath or chest pain.? Denies any palpitation as well.? on 03/28 She had a CTA no? PE.? She underwent contrast allergy prep with prednisone? night before. patient had been hypotensive and cardiology held her losartan, added midodrine, today both HR and BP are stable, patient remains clinically stable, denies any CP, palpitation, or shortness of breath. on 03/30/2022 spoke with one of the daughter to consider comfort care for the patient, on 03/31/2022 daughter requested? she wants to transfer patient to [facility] for second opinion, spoke with her animal caretaker supervisor, he recommneded to stop midodrin as patient BP is stable and switch her metoprolol to low dose metoprolol succinate, and added low dose Entresto, the animal caretaker supervisor also spoke with patient daughter to monitor patient here and not need transfer patient to the [facility],?on 04/02 patient again was tachycardia and Dr. Escobar recommended to transfer patient to IMU and gave amiodoran bolus to bring HR down,?on 04/03 patient was seen by Dr. Woodruff and stopped amiodorane drip and started on oral amiodorane,? patient is clinically stable however patient HR was high, and BP is soft,?today patient was hypotensive 76/44 patient needed to be transferred to ICU for pressures however patient family decided to place patient under comfort care, I have consulted care technician to consult hospice service, patient daughters are present in the room, they spoke with their brother who is POA has agreed for comfort care, (2) Shortness of breath: Code(s): R06.02 - Shortness of breath Status: Acute Assessment and Plan: This has been an ongoing issue for the last week or so. I am not certain she has an active pulmonary infection though imaging suggests small bilateral pleural effusions with patchy infiltrates and/or atelectasis in the lower lung zones. With an elevated troponin and proBNP in addition to decreased activity recently, pulmonary embolism certainly is a consideration. She has a contrast allergy and at this time she was started on empiric Lovenox 1 milligram/kilogram b.i.d. Venous duplex positive for DVT of peroneal veins V/Q scan indeterminate Currently on Lovenox However now complicated with abdominal wall Hematoma.CT abdomen with subcutaneous fat stranding in the anterior abdominal wall and left is hematoma. H&H slightly dropped To 9.9 from 10.9 on 03/24. Monitor H&H has remained stable now. Mildly hypotensive throughout the day 03/25 added on midodrine. Anticoagulation held hemodynamics improved with anticoagulation held. Repeat venous duplex with persistent peroneal vein DVT which is a distal DVT. There is a V/Q scan which is indeterminate the possibility off PE remains. With continued drop in H&H persisted finding of peroneal vein DVT , discussed with General surgery for IVC filter placement. Since his DVT is a distal and no clear-cut evidence of PE no indication of anticoagulation if this can be approved. And hence she underwent CTA PE protocol which completed today showed no evidence of PE. However She has another in
[2022-04-05] MEDS: MORPHINE SULFATE (*CRX) 2 MG/ML INJ IV PUSH (13:33)
--- NOTE | 2022-04-05 19:37 | PM.IMPN ---
Progress Note: A&P Assessment and Plan (1) Elevated troponin: Code(s): R77.8 - Other specified abnormalities of plasma proteins Status: Acute (2) Shortness of breath: Code(s): R06.02 - Shortness of breath Status: Acute (3) Heart failure with reduced ejection fraction: Code(s): I50.20 - Unspecified systolic (congestive) heart failure Status: Acute (4) Transaminitis: Code(s): R74.01 - Elevation of levels of liver transaminase levels Status: Acute (5) Macrocytic anemia: Code(s): D53.9 - Nutritional anemia, unspecified Status: Acute (6) Thrombocytopenia: Code(s): D69.6 - Thrombocytopenia, unspecified Status: Acute (7) Elevated lactic acid level: Code(s): R79.89 - Other specified abnormal findings of blood chemistry Status: Acute (8) Blood in stool: Code(s): K92.1 - Melena Status: Acute (9) Atrial fibrillation: Code(s): I48.91 - Unspecified atrial fibrillation Status: Acute Plan pt has been made DNR and family has agreed to comfort measures only she will be discharged in am to [facility] under the care of [facility] hospice cont supplemental O2 morphine PRN x pain ativan x anxiety PRN CC working on dc planning Subjective Date/time seen: 04/05/22 19:37 pt is comfort care and going to [facility] w [facility] sleeping at time of my visit. 2 Daughters bedside we discuss hospice and comfort care Review of Systems Review of Systems: All systems reviewed & are unremarkable except as noted in HPI and below Exam Narrative: GEN: Elderly frail pt comfortable, NAD HEENT: eyes closed LUNGS: normal respiratory effort, on NC Lower extremities: no edema SKIN: nonjaundiced no rash Objective Data Vital Signs Vital Signs: Vital Signs - 24 hr 04/04/22 23:12 Temperature 98.4 F Pulse Rate 130 H Respiratory Rate 22 H Blood Pressure 68/40 L Pulse Oximetry 94 Intake/Output Intake/Output: Intake & Output 04/02/22 04/03/22 04/04/22 04/05/22 23:59 23:59 23:59 23:59 Intake Total 1160 370 480 360 Output Total 500 1600 450 450 Balance 660 -1230 30 -90 Meds/Results Medications: Active Medications Generic Name Dose Route Start Last Admin Trade Name Freq PRN Reason Stop Dose Admin Atropine Sulfate 1 - 2 drop 04/04/22 12:12 Atropine Sulfate 1% Ophth Soln 5 Ml Bottle SUBLINGUAL Q4H PRN Secretions Lorazepam 2 mg 04/04/22 12:12 04/04/22 13:17 Lorazepam Inj (*Crx) 2 Mg/Ml Vial IV PUSH 2 mg Q2H PRN Administration Anxiety/Comfort Miconazole Nitrate 1 applic 03/21/22 09:00 04/05/22 19:19 Miconazole 2% Antifungal Ointment 56 Gm TOPICAL Not Given Q12HR VENITA Morphine Sulfate 2 mg 04/04/22 12:12 04/05/22 13:33 Morphine Sulfate (*Crx) 2 Mg/Ml Inj IV PUSH 2 mg Q30M PRN Administration COMFORT Radiology Results: ITS Impressions Chest X-Ray 03/20/22 14:26 Impression: 1: Bibasilar airspace disease, suspicious for pneumonia. 2: Stable nodular density right mid thorax without significant change from 04/12/2018. Consider follow-up CT chest in 3 months or pet/CT scan. Pulmonary Perfusion Imaging 03/21/22 13:23 IMPRESSION: 1. Nondiagnostic (intermediate probability for pulmonary embolism). Lexiscan Stress Test 03/22/22 13:05 IMPRESSION: 1. No definite ischemia or infarct. 2. Global hypokinesis with diminished left ventricular ejection fraction measuring 39%. Abdomen X-Ray 03/25/22 07:22 Impression: 1: Nonobstructive bowel gas pattern with moderate colonic fecal loading. 2: Bibasilar airspace disease which may represent pneumonia or edema. Abdomen/Pelvis CT 03/25/22 21:55 IMPRESSION: 1. Subcutaneous fat stranding in anterior abdominal wall predominantly on the left, consistent with hematoma. 2. Small pleural effusions with interval improvement. Venous Doppler Study 03/26/22 15:13 IMPRESSION: Persist
[2022-04-05 21:29] VITALS: BP 92/52; PULSE 88; RESP 18; TEMP 36.6; O2SAT 100
[2022-04-05 22:56] VITALS: PULSE 88; RESP 18; O2SAT 100
[2022-04-06] MEDS: MORPHINE SULFATE (*CRX) 2 MG/ML INJ IV PUSH (10:56)
--- NOTE | 2022-04-06 11:23 | PM.DS ---
DS: Admitting Diagnosis Discharge Date 04/06/22 Admitting Diagnosis (1) Elevated troponin: ?Code(s): R77.8 - Other specified abnormalities of plasma proteins ?Status:?Acute (2) Shortness of breath: ?Code(s): R06.02 - Shortness of breath ?Status:?Acute (3) Heart failure with reduced ejection fraction: ?Code(s): I50.20 - Unspecified systolic (congestive) heart failure ?Status:?Acute (4) Transaminitis: ?Code(s): R74.01 - Elevation of levels of liver transaminase levels ?Status:?Acute (5) Macrocytic anemia: ?Code(s): D53.9 - Nutritional anemia, unspecified ?Status:?Acute (6) Thrombocytopenia: ?Code(s): D69.6 - Thrombocytopenia, unspecified ?Status:?Acute (7) Elevated lactic acid level: ?Code(s): R79.89 - Other specified abnormal findings of blood chemistry ?Status:?Acute DS: Discharge Diagnosis Discharge Diagnosis (1) Atrial fibrillation and flutter: Code(s): I48.91 - Unspecified atrial fibrillation; I48.92 - Unspecified atrial flutter Status: Acute (2) History of mitral valve replacement with bioprosthetic valve: Code(s): Z95.3 - Presence of xenogenic heart valve Status: Acute (3) Mitral valve replaced: Code(s): Z95.2 - Presence of prosthetic heart valve Status: Acute (4) Blood in stool: Code(s): K92.1 - Melena Status: Acute (5) Acute on chronic combined systolic and diastolic CHF (congestive heart failure): Code(s): I50.43 - Acute on chronic combined systolic (congestive) and diastolic (congestive) heart failure Status: Acute (6) Cardiomyopathy: Code(s): I42.9 - Cardiomyopathy, unspecified Status: Acute (7) Elevated lactic acid level: Code(s): R79.89 - Other specified abnormal findings of blood chemistry Status: Acute (8) Thrombocytopenia: Code(s): D69.6 - Thrombocytopenia, unspecified Status: Acute (9) Macrocytic anemia: Code(s): D53.9 - Nutritional anemia, unspecified Status: Acute (10) Transaminitis: Code(s): R74.01 - Elevation of levels of liver transaminase levels Status: Acute (11) Heart failure with reduced ejection fraction: Code(s): I50.20 - Unspecified systolic (congestive) heart failure Status: Acute (12) Elevated troponin: Code(s): R77.8 - Other specified abnormalities of plasma proteins Status: Acute (13) Shortness of breath: Code(s): R06.02 - Shortness of breath Status: Acute DS: Summary Hospital Course Reason for hospitalization: This is an 86-year-old female with? history of heart failure with reduced ejection fraction (09/2021 TTE LVEF 45%, grade 1 diastolic dysfunction),? 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 She was admitted to the hospital in early January with lab abnormalities including hyperkalemia and lactic acidosis of unclear etiology. She was hydrated and discharged home with home health and physical therapy. She has had difficulties participating in physical therapy as she has been increasingly fatigued and gets exhausted with minimal activity.? She has also had increasing dyspnea on lesser and lesser exertion in addition to increasing lower extremity edema. She has not had chest pain, pleuritic pain, or palpitations. She has not had a cough, sinus congestion, or sore throat. She denies syncope and near syncope. Hospital Course: She went into AFib with RVR.? Cardiology was consulted. She was given IV digoxin.? Her rate has been intermittently up and down.? both HR and BP are stable, ? she is asymptom
[2022-04-06 11:25] LABS: EDCOVIDSCREEN Negative (Negative)
== END 2022-04-06 21:25 | disposition hospice, inpatient (51) | DRG 291 ==
LOC: ANHED 18:04 → ANHIMU 19:55 → ANH2MED 03-29 17:52 → ANHIMU 04-02 10:20 → ANH3MED 04-04 15:15
PROVIDERS: Family Medicine; Internal Medicine; Internal Medicine Cardiovascular Disease; Nurse Practitioner; Physician Assistant; Admitting Provider Internal Medicine; Emergency Provider Emergency Medicine; PCP Physician Assistant; Visit Provider Hospitalist
DX: I11.0 Hypertensive heart disease with heart failure (principal); I50.43 Acute on chronic combined systolic (congestive) and diastolic (congestive) heart failure; I51.1 Rupture of chordae tendineae, not elsewhere classified; I82.452 Acute embolism and thrombosis of left peroneal vein; K92.1 Melena; I48.92 Unspecified atrial flutter; R77.8 Other specified abnormalities of plasma proteins; R74.01 Elevation of levels of liver transaminase levels; D53.9 Nutritional anemia, unspecified; D69.6 Thrombocytopenia, unspecified; R74.02 Elevation of levels of lactic acid dehydrogenase [LDH]; E11.9 Type 2 diabetes mellitus without complications; I42.9 Cardiomyopathy, unspecified; E78.5 Hyperlipidemia, unspecified; E87.6 Hypokalemia; E89.0 Postprocedural hypothyroidism; I34.0 Nonrheumatic mitral (valve) insufficiency; T80.89XA Other complications following infusion, transfusion and therapeutic injection, initial encounter; S30.1XXA Contusion of abdominal wall, initial encounter; I49.3 Ventricular premature depolarization; I48.91 Unspecified atrial fibrillation; E86.0 Dehydration; I95.9 Hypotension, unspecified; K59.00 Constipation, unspecified; Z95.3 Presence of xenogenic heart valve; Z51.5 Encounter for palliative care; Z66 Do not resuscitate; R82.90 Unspecified abnormal findings in urine; Z20.822 Contact with and (suspected) exposure to COVID-19; Z85.850 Personal history of malignant neoplasm of thyroid; Z90.710 Acquired absence of both cervix and uterus; Z79.82 Long term (current) use of aspirin; Z79.84 Long term (current) use of oral hypoglycemic drugs; R79.89 Other specified abnormal findings of blood chemistry; Z86.73 Personal history of transient ischemic attack (TIA), and cerebral infarction without residual deficits; R54 Age-related physical debility; T38.3X5A Adverse effect of insulin and oral hypoglycemic [antidiabetic] drugs, initial encounter
CPT/HCPCS: 36415; 71046; 71275; 74018; 74176; 78452; 78580; 80048; 80053; 80074; 81001; 82550; 82607; 82728; 82746; 82948; 83036; 83540; 83550; 83605; 83615; 83735; 83880; 84132; 84443; 84484; 85014; 85018; 85025; 85027; 85380; 85610; 85730; 87040; 87077; 87086; 87088; 87186; 87426; 93005; 93017; 93306; 93970; 96374; 97110; 97161; 97166; 97530; 97535; 99285; A9270; A9502; A9540; C9113; C9803; J0282; J0696; J1160; J1650; J1815; J1940; J2060; J2270; J2785; J3475; J3480; J7030; J7040; J7050; J7512; Q9967; U0003; U0005